=== PATIENT | male | born 1970 | race Caucasian/White ===

== ENCOUNTER 2018-01-26 16:32 | Emergency (ER) | END 2018-01-26 20:42 | disposition home or self-care (01) ==

== ENCOUNTER 2018-01-28 09:13 | Inpatient (IN) | END 2018-01-31 16:38 | disposition home or self-care (01) | DRG 639 ==

== ENCOUNTER 2018-07-04 03:44 | Emergency (ER) | END 2018-07-04 04:23 | disposition home or self-care (01) ==

== ENCOUNTER 2018-07-14 22:28 | Emergency (ER) | END 2018-07-14 23:18 | disposition home or self-care (01) ==

== ENCOUNTER 2018-09-12 21:11 | Inpatient (IN) | END 2018-09-15 14:35 | disposition home or self-care (01) | DRG 639 ==

== ENCOUNTER 2019-01-20 00:43 | Emergency (ER) | payer MEDICAID ==
[~2019-01-20] VITALS: Ht 154.9 cm; Wt 63.3 kg
[~2019-01-20 00:43] MED LIST: ALBU18HF INHALATION; FAMO20TA18 PO; HC30CR25 TOP; HYDR50TA15 PO; Insulin Glargine SC; LANO454C2 TP; LORA10CA PO; NOVO3I SC; SITA100T11 PO; TRAM50TA PO
[2019-01-20 00:48] VITALS: Ht 154.9 cm; Wt 63.3 kg
[2019-01-20] MEDS ORDERED: HYDROCODONE/APAP (5/325) TAB PO ONE (03:00)
[2019-01-20] MEDS ORDERED: SOD CHLORIDE 0.9% 1,000 ML IV ONE ×2 (04:00→05:30)
[2019-01-20] MEDS ORDERED: INSULIN LISPRO 100 UNIT/ML VIAL SC STA (04:09)
[2019-01-20] MEDS ORDERED: ACET500C5 PO (06:26)
[2019-01-20] MEDS ORDERED: CEPH-443 PO (06:26)
[2019-01-20] MEDS ORDERED: SULF1TAB31 PO (06:26)
--- NOTE | 2019-01-20 06:30 | ERD ---
ER Documentation Chief Complaint Chief Complaint upper thigh mass with pain that radiates to lower right quadrant x 2 days HPI Patient is a 48-year-old male with past medical history of DM type II, presents the ER for concerns of tender "mass" in his right upper thigh which started 2 days ago. Patient states that the area is tender to touch. Patient denies any fevers or chills. Patient denies any falls or trauma. Patient has no chest pain, shortness of breath, abdominal pain, nausea or vomiting. Patient denies IV drug use. Patient denies any dysuria, urgency, urgency or penile discharge. ROS All systems reviewed and are negative except as per history of present illness. Medications Home Meds Active Scripts Acetaminophen* (Tylophen*) 500 Mg Capsule, 1 CAP PO Q6H PRN for PAIN AND OR ELEVATED TEMP, #20 CAP Prov:DHRUV DIAZ PA-C 01/20/19 Sulfamethoxazole/Trimethoprim* (Bactrim Ds* Tablet) 1 Each Tablet, 1 TAB PO BID, #14 TAB Prov:DHRUV DIAZ PA-C 01/20/19 Cephalexin* (Keflex*) 500 Mg Capsule, 500 MG PO TID for 7 Days, CAP Prov:DHRUV DIAZ PA-C 01/20/19 Sitagliptin* (Januvia*) 100 Mg Tablet, 100 MG PO DAILY, #30 TAB 3 Refills Prov:RENATO BURNS 09/15/18 Insulin Aspart* (Novolog Insulin Pen*) 100 Unit/Ml Soln, 6 UNIT SC WITH MEALS for 30 Days, #1 BOX 3 Refills alternative: humalog at same dose, directions, and refills Prov:RENATO BURNS 09/15/18 [Insulin Glargine] 100 UNITS/ML SOLN No Conflict Check, 16 UNITS SC DAILY@08 for 30 Days, #1 BOX 3 Refills alternative:wolfgang singletary tresiba. Same dose and direction with same refills Prov:RENATO BURNS 09/15/18 Loratadine* (Claritin*) 10 Mg Capsule, 10 MG PO DAILY, #15 CAP Prov:MARQUIS DUNN PA-C 07/14/18 Albuterol Sulfate* (Ventolin HFA*) 18 Gm Hfa.aer.ad, 2 PUFF INHALATION Q4H, #1 INHALER Prov:MARQUIS DUNN PA-C 07/14/18 Wool Alcoh/Min Oil/Radha/[place] (Eucerin Creme) 454 Gm Cream.gm., 454 GM TP BID, #1 TUB Prov:MARQUIS DUNN PA-C 07/14/18 Hydrocortisone* Topical (Hydrocortisone* Topical) 2.5%-28.3 Gm Cream..g., 1 APPLIC TOP BID, #1 TUB Prov:MARQUIS DUNN PA-C 07/14/18 Hydroxyzine Hcl* (Hydroxyzine Hcl*) 50 Mg Tablet, 50 MG PO Q6H PRN for ITCHING, #30 TAB Prov:GOLDYTANMAYHARDYNERI Serafin 07/04/18 Reported Medications Famotidine* (Famotidine*) 20 Mg Tablet, 20 MG PO DAILY, #30 TAB 01/28/18 Tramadol Hcl* (Ultram*) 50 Mg Tablet, 50 MG PO Q4 PRN for PAIN, TAB 01/28/18 Allergies Allergies: Coded Allergies: No Known Allergy (Unverified , 01/28/18) PMhx/Soc Medical and Surgical Hx: pt denies Medical Hx, pt denies Surgical Hx History of Surgery: No Anesthesia Reaction: No Hx Neurological Disorder: No Hx Respiratory Disorders: No Hx Cardiac Disorders: No Hx Psychiatric Problems: No Hx Miscellaneous Medical Probl: No Hx Alcohol Use: No Hx Substance Use: No Hx Tobacco Use: No Smoking Status: Never smoker FmHx Family History: diabetes Physical Exam Vitals Vital Signs Date Temp Pulse Resp B/P (MAP) Pulse Ox O2 O2 Flow FiO2 Time Delivery Rate 01/20/19 98.6 76 18 109/64 97 Room Air 07:01 (79) 01/20/19 98.1 89 18 119/75 98 00:48 (90) Physical Exam GENERAL: Well-developed, well-nourished male. Appears in no acute distress. HEAD: Normocephalic, atraumatic. EYES: Pupils are equally reactive bilaterally. EOMs grossly intact. No conjunctival erythema. ENT: Moist mucous membranes. No uvula deviation. No kissing tonsils. NECK: Supple. No meningismus. Normal range of motion of the neck. LUNG: Clear to auscultation bilaterally. No rhonchi, wheezing, rales or coarse breath sounds. HEART: Regular rate and rhythm. No murmurs, rubs or gallops. ABDOMEN: Soft, nontender, and nondistended. Positive bowel sounds in all four quadrants. No rebound tenderness, no guarding. (-) McBurney's point tenderness. No CVA tenderness. BACK: No midline tenderness. EXTREMITIES: Equal pulses bilaterally. No peripheral clubbing, cyanosis or edema. No unilateral leg swelling. NEUROLOGIC: Alert and oriented. Moving all four extremities without any difficulty. Normal speech. Steady gait. SKIN: Tender palpable mass measuring 3 cm round noted on R upper thigh below R inguinal area. Skin is non erythematous. Mild warmth. No streaking. Affected area is not fluctuant. Result Diagram: 01/20/19 0257 01/20/197 Results 24 hrs Laboratory Tests Test 01/20/19 02:57 01/20/19 04:50 01/20/19 06:01 White Blood Count 10.0 10^3/ul Red Blood Count 4.31 10^6/ul Hemoglobin 12.9 g/dl Hematocrit 36.9 % Mean Corpuscular Volume 85.6 fl Mean Corpuscular Hemoglobin 29.9 pg Mean Corpuscular 35.0 g/dl Hemoglobin Concent Red Cell Distribution Width 12.0 % Platelet Count 210 10^3/UL Mean Platelet Volume 11.4 fl Immature Granulocytes % 0.300 % Neutrophils % 80.9 % Lymphocytes % 10.8 % Monocytes % 6.9 % Eosinophils % 0.7 % Basophils % 0.4 % Nucleated Red Blood Cells % 0.0 /100WBC Immature Granulocytes # 0.030 10^3/ul Neutrophils # 8.1 10^3/ul Lymphocytes # 1.1 10^3/ul Monocytes # 0.7 10^3/ul Eosinophils # 0.1 10^3/ul Basophils # 0.0 10^3/ul Nucleated Red Blood Cells # 0.0 10^3/ul Urine Color COLORLESS Urine Clarity CLEAR Urine pH 6.0 Urine Specific [place] 1.028 Urine Ketones 1+ mg/dL Urine Nitrite NEGATIVE mg/dL Urine Bilirubin NEGATIVE mg/dL Urine Urobilinogen NEGATIVE mg/dL Urine Leukocyte Esterase NEGATIVE Sergio/ul Urine Hemoglobin NEGATIVE mg/dL Urine Glucose 3+ mg/dL Urine Total Protein NEGATIVE mg/dl Sodium Level 136 mmol/L Potassium Level 4.3 mmol/L Chloride Level 100 mmol/L Carbon Dioxide Level 21 mmol/L Anion Gap 15 Blood Urea Nitrogen 16 mg/dl Creatinine 0.75 mg/dl Est Glomerular Filtrat > 60 mL/min Rate mL/min Glucose Level 593 mg/dl Calcium Level 9.4 mg/dl Total Bilirubin 0.3 mg/dl Direct Bilirubin 0.00 mg/dl Indirect Bilirubin 0.3 mg/dl Aspartate Amino Transf (AST/SGOT) 11 IU/L Alanine 29 IU/L Aminotransferase (ALT/SGPT) Alkaline Phosphatase 235 IU/L Total Protein 7.0 g/dl Albumin 3.9 g/dl Globulin 3.10 g/dl Albumin/Globulin Ratio 1.25 Bedside Glucose 498 mg/dL 320 mg/dL Current Medications Medications Dose Sig/Nena Start Time Status Last (Trade) Ordered Route PRN Stop Time Admin Dose Reason Admin 1 tab ONCE ONCE 01/20/19 DC 01/20/19 Acetaminophen PO 03:00 03:16 / 01/20/19 03:01 Hydrocodone Bitart ([place] (5/325)) Sodium 1,000 ml @ Q1H ONCE 01/20/19 DC 01/20/19 Chloride 1,000 mls/hr IV 04:00 04:07 01/20/19 04:59 Insulin 10 unit ONCE STAT 01/20/19 DC 01/20/19 Human SC 04:09 04:56 Lispro 01/20/19 04:11 (Humalog) Sodium 1,000 ml @ Q1H ONCE 01/20/19 DC 01/20/19 Chloride 1,000 mls/hr IV 05:30 05:21 01/20/19 06:29 Procedures/MDM ED COURSE: The patient was stable throughout ED course. I kept the patient and/or family informed of laboratory and diagnostic imaging results throughout the ED course. DIAGNOSTIC IMAGING: Read by radiologist. Patient: RAMIN HERNANDEZ : 1970 Age: 48 Sex: M MR #: [id number] DOS: 01/20/19 0232 Ordering MD: DHRUV DIAZ PA-C Location: E Room/Bed: PROCEDURE: Soft tissue ultrasound of the right leg including color Doppler study. CLINICAL INDICATION: Right leg mass TECHNIQUE: Sharma scale and color Doppler imaging of the palpable abnormality below the crease of the groin was performed with a high frequency linear transducer COMPARISON: None FINDINGS: There is a 2.4 x 2.5 x 2.4 cm complex mixed echogenicity rounded lesion corresponding to the palpable abnormality. No focal drainable fluid collection is seen. This appears to be deep to the subcutaneous soft tissues. There does appear to be a small of internal vascularity. IMPRESSION: Complex cystic or necrotic mass in the right leg soft tissues beneath the subcutaneous soft tissues. This could represent a necrotic lymph node or necrotic or complex neoplasm. Ultrasound could be used for biopsy. MRI with and without contrast could be considered if indicated. Physician Deja Date Time Electronically viewed and signed by Britt Lei Physician on 01/20/2019 04:23 LE/ CC: DHRUV DIAZ PA-C [id number] PROCEDURES: None. MEDICATIONS GIVEN: Iv fluids, [place], Insulin Patient tolerated medication well with no adverse reactions. MEDICAL DECISION MAKING: Patient is a 48-year-old male with past medical history of DM type II, presents the ER for concerns of tender "mass" in his right upper thigh which started 2 days ago. Patient denied fevers or chills. Patient denied IV drug use. Vital signs were reviewed. Patient was afebrile. Patient was not hypoxic. Patient was hemodynamically stable. IV line was established. Blood work was obtained. CBC showed no evidence of systemic infection or severe anemia. CMP showed no evidence of severe electrolyte abnormalities except for glucose of 593, severe acidosis, alkalosis, renal failure, or liver disease. Anion gap of 15 noted. Lipase showed no evidence of acute pancreatitis. UA showed no evidence of acute infection or hematuria however 3+ glucose and +1 ketones noted. Patient's bicarb is within normal limits. Doubt DKA at this time. Patient had hyperglycemia due to uncontrolled blood sugars and was given 10 units of insulin subcu. Blood sugar was noted to be downtrending throughout the ED course. Soft tissue ultrasound of the right leg showed Complex cystic or necrotic mass in the right leg soft tissues beneath the subcutaneous soft tissues. This could represent a necrotic lymph node or necrotic or complex neoplasm. Ultrasound could be used for biopsy. MRI with and without contrast could be considered if indicated. Findings were discussed with supervising physician Dr. Mora, who stated that findings are likely related to abscess. Clinically speaking, patient appears well. Patient had no fevers. Patient WBC count was within normal limits. Patient is stable for outpatient management. Patient was given prescription for Keflex and Bactrim and advised to return in 2 days for recheck. No suspicion for necrotizing infection or sepsis. Patient was advised to monitor and control his blood sugars. PRESCRIPTION: Keflex, Bactrim, Tylenol DISCHARGE: At this time, patient is stable for discharge and outpatient management. I have instructed the patient to follow-up with his/her primary care physician in 1-2 days. I have discussed with the patient the possibility of needing to see a specialist for further workup and imaging studies if symptoms persist. I have instructed the patient to promptly return to the ER for any new or worsening symptoms including increased pain, fever, nausea, vomiting, weakness or LOC. The patient and/or family expressed understanding of and agreement with this plan. All questions were answered. Home care instructions were provided. Patients random blood sugar level was elevated (>140), but appears stable without evidence of DKA or end organ failure. I had discussion with the patient about the risk of diabetes. I have advised the patient to follow up with his/her primary care physician for outpatient monitoring and treatment for elevated blood sugar levels in 2-3 days. I have instructed the patient to return to the ER for any new or worsening symptoms including chest pain, shortness of breath, headache, confusion, abdominal pain, nausea, vomiting, weakness or LOC. Disclaimer: Inadvertent spelling and grammatical errors are likely due to EHR/dictation software use and do not reflect on the overall quality of patient care. Also, please note that the electronic time recorded on this note does not necessarily reflect the actual time of the patient encounter. Departure Diagnosis: Primary Impression: Abscess Additional Impression: Hyperglycemia due to type 2 diabetes mellitus Diabetes mellitus ferry terminal agent insulin use: unspecified ferry terminal agent insulin use status Qualified Codes: E11.65 - Type 2 diabetes mellitus with hyperglycemia Condition: Fair Patient Instructions: Abscess, Antiobiotic Treatment Only Referrals: COMMUNITY CLINICS YOU HAVE RECEIVED A MEDICAL SCREENING EXAM AND THE RESULTS INDICATE THAT YOU DO NOT HAVE A CONDITION THAT REQUIRES URGENT TREATMENT IN THE EMERGENCY DEPARTMENT. FURTHER EVALUATION AND TREATMENT OF YOUR CONDITION CAN WAIT UNTIL YOU ARE SEEN IN YOUR DOCTORS OFFICE WITHIN THE NEXT 1-2 DAYS. IT IS YOUR RESPONSIBILITY TO MAKE AN APPOINTMENT FOR FOLOW-UP CARE. IF YOU HAVE A PRIMARY DOCTOR --you should call your primary doctor and schedule an appointment IF YOU DO NOT HAVE A PRIMARY DOCTOR YOU CAN CALL OUR PHYSICIAN REFERRAL HOTLINE AT IF YOU CAN NOT AFFORD TO SEE A PHYSICIAN YOU CAN CHOSE FROM THE FOLLOWING [facility] [address] [facility] [address] [facility] [address] [facility] [address] [facility] [address] [facility]. [facility] [address] [facility]. [facility] YOU HAVE RECEIVED A MEDICAL SCREENING EXAM AND THE RESULTS INDICATE THAT YOU DO NOT HAVE A CONDITION THAT REQUIRES URGENT TREATMENT IN THE EMERGENCY DEPARTMENT. FURTHER EVALUATION AND TREATMENT OF YOUR CONDITION CAN WAIT UNTIL YOU ARE SEEN IN YOUR DOCTORS OFFICE WITHIN THE NEXT 1-2 DAYS. IT IS YOUR RESPONSIBILITY TO MAKE AN APPOINTMENT FOR FOLOW-UP CARE. IF YOU HAVE A PRIMARY DOCTOR --you should call your primary doctor and schedule and appointment IF YOU DO NOT HAVE A PRIMARY DOCTOR YOU CAN CALL OUR PHYSICIAN REFERRAL HOTLINE AT . IF YOU CAN NOT AFFORD TO SEE A PHYSICIAN YOU CAN CHOSE FROM THE FOLLOWING [facility] INSTITUTIONS: [facility] [address] [place] [address] [facility] [address] [place] [address] [facility] + [facility] [address] [place] [address] [facility]/SPECIALTIES Additional Instructions: Regresar en dos aguilar para recheck. Llame al doctor MAANA y fam mariano TAHIRA PARA DENTRO DE 1-2 AGUILAR.Dgale a la secre taria que nosotros le instruimos hacer esta tahira.Avise o llame si nova condicin se empeora antes de la tahira. Regresa aqui si peor o no mejor. DHRUV DIAZ PA-C Jan 20, 2019 06:30
[2019-01-20 07:01] VITALS: BP 109/64; PULSE 76; RESP 18
== END 2019-01-20 07:02 | disposition home or self-care (01) ==
LOC: FTE 00:43
DX: L02.415 Cutaneous abscess of right lower limb (principal); E11.65 Type 2 diabetes mellitus with hyperglycemia; Z79.4 Long term (current) use of insulin
CPT/HCPCS: 36415; 76536; 80053; 81003; 82962; 85025; 96360; 96361; 96372; J1815; J7030; Z7502; Z7610

== ENCOUNTER 2019-01-23 02:30 | Emergency (ER) | payer MEDICAID ==
[~2019-01-23] VITALS: Ht 160 cm; Wt 64.4 kg
[~2019-01-23 02:30] MED LIST changes: +ACET500C5 PO; +CEPH-443 PO; +SULF1TAB31 PO
[2019-01-23 02:38] VITALS: BP 111/67; PULSE 72; RESP 16; Ht 160 cm; Wt 64.4 kg
--- NOTE | 2019-01-23 03:46 | ERD ---
ER Documentation Chief Complaint Chief Complaint pt reports r groin pain x 3 days HPI 48-year-old male, presents to the emergency department, complaining of 3 days with right inguinal pain the patient was seen 3 days ago and is started on cephalexin and Bactrim without improvement of the symptoms. He denies fever, no chills, no abdominal pain. ROS All systems reviewed and are negative except as per history of present illness. Medications Home Meds Active Scripts Acetaminophen* (Tylenol*) 325 Mg Tablet, 2 TAB PO Q6 PRN for PAIN AND OR ELEVATED TEMP, #20 TAB Prov:LIAM ROWE MD 01/23/19 Acetaminophen* (Tylophen*) 500 Mg Capsule, 1 CAP PO Q6H PRN for PAIN AND OR ELEVATED TEMP, #20 CAP Prov:DHRUV DIAZ PA-C 01/20/19 Sulfamethoxazole/Trimethoprim* (Bactrim Ds* Tablet) 1 Each Tablet, 1 TAB PO BID, #14 TAB Prov:DHRUV DIAZ PA-C 01/20/19 Cephalexin* (Keflex*) 500 Mg Capsule, 500 MG PO TID for 7 Days, CAP Prov:DHRUV DIAZ PA-C 01/20/19 Sitagliptin* (Januvia*) 100 Mg Tablet, 100 MG PO DAILY, #30 TAB 3 Refills Prov:RENATO BURNS 09/15/18 Insulin Aspart* (Novolog Insulin Pen*) 100 Unit/Ml Soln, 6 UNIT SC WITH MEALS for 30 Days, #1 BOX 3 Refills alternative: humalog at same dose, directions, and refills Prov:RENATO BURNS 09/15/18 [Insulin Glargine] 100 UNITS/ML SOLN No Conflict Check, 16 UNITS SC DAILY@08 for 30 Days, #1 BOX 3 Refills alternative:basaglar, toucarolyn, tresiba. Same dose and direction with same refills Prov:RENATO BURNS 09/15/18 Loratadine* (Claritin*) 10 Mg Capsule, 10 MG PO DAILY, #15 CAP Prov:MARQUIS DUNN PA-C 07/14/18 Albuterol Sulfate* (Ventolin HFA*) 18 Gm Hfa.aer.ad, 2 PUFF INHALATION Q4H, #1 INHALER Prov:MARQUIS DUNN PA-C 07/14/18 Wool Alcoh/Min Oil/Radha/[place] (Eucerin Creme) 454 Gm Cream.gm., 454 GM TP BID, #1 TUB Prov:MARQUIS DUNN PA-C 07/14/18 Hydrocortisone* Topical (Hydrocortisone* Topical) 2.5%-28.3 Gm Cream..g., 1 APPLIC TOP BID, #1 TUB Prov:MARQUIS DUNN PA-C 07/14/18 Hydroxyzine Hcl* (Hydroxyzine Hcl*) 50 Mg Tablet, 50 MG PO Q6H PRN for ITCHING, #30 TAB Prov:SHAILA DALE 07/04/18 Reported Medications Famotidine* (Famotidine*) 20 Mg Tablet, 20 MG PO DAILY, #30 TAB 01/28/18 Tramadol Hcl* (Ultram*) 50 Mg Tablet, 50 MG PO Q4 PRN for PAIN, TAB 01/28/18 Allergies Allergies: Coded Allergies: No Known Allergy (Unverified , 01/28/18) PMhx/Soc The patient reports history of type 2 diabetes mellitus History of Surgery: No Anesthesia Reaction: No Hx Neurological Disorder: No Hx Respiratory Disorders: No Hx Cardiac Disorders: No Hx Psychiatric Problems: No Hx Miscellaneous Medical Probl: No Hx Alcohol Use: No Hx Substance Use: No Hx Tobacco Use: No Smoking Status: Never smoker FmHx Family History: diabetes; No coronary disease Physical Exam Vitals Vital Signs Date Temp Pulse Resp B/P (MAP) Pulse Ox O2 O2 Flow FiO2 Time Delivery Rate 01/23/19 98.7 72 16 111/67 100 02:38 (82) Physical Exam Const: No acute distress Head: Atraumatic Eyes: Normal Conjunctiva ENT: Normal External Ears, Nose and Mouth. Neck: Full range of motion. No meningismus. Resp: Clear to auscultation bilaterally Cardio: Regular rate and rhythm, no murmurs Abd: Soft, non tender, non distended. Normal bowel sounds Skin: 4 x 4 cm area of induration, erythema and fluctuance on the right upper thigh. No petechiae or rashes Back: No midline or flank tenderness Ext: No cyanosis, or edema Neur: Awake and alert Psych: Normal Mood and Affect Results 24 hrs Current Medications Medications Dose Sig/Nena Start Time Status Last (Trade) Ordered Route PRN Stop Time Admin Dose Reason Admin Lidocaine 5 ml ONCE ONCE 01/23/19 DC (Xylocaine INFIL 04:00 1% (Mpf)) 01/23/19 04:01 Procedures/MDM Vital signs stable. Differential diagnosis considered include but not limited to: Cellulitis, abscess, lipoma, neoplasm. Low suspicion for acute systemic infection. Physical examination and clinical presentation consistent most likely with skin abscess. During the ED course the patient remained stable, no new complaints. The patient received treatment with incision and drainage of the area presenting overall improvement of the symptoms. Incision and drainage: Informed consent obtained, risk and benefits discussed with patient. Indication: Skin abscess Location: Right upper thigh Area cleaned and sterilized with chlorhexidine solution, 2 mL of lidocaine without epi was infiltrated in the area of the incision. 5 mm incision was made with 11 blade scalpel abscess was drained with breaking up loculation with a hemostat. 1/4 packing was placed through the incision in the abscess cavity. The patient tolerated well the procedure without complications. Results and clinical impression discussed with the patient who agrees with management. The patient is stable to be treated outpatient and will be discharged home, some side effects of prescribed medications (headache, rash, nausea, vomiting, diarrhea, drowsiness, habituation, bleeding, hypertension, interactions with other medications) were reviewed. The patient was instructed to follow up with the primary care provider in the next 48h. If symptoms persist, worsen or new symptoms develop, then patient should return to the ED immediately. Instructions explained and given directly by me to the patient in Turkmen with acknowledgment and demonstrated understanding. Disclaimer: Inadvertent spelling and grammatical errors are likely due to EHR/dictation software use and do not reflect on the overall quality of patient care. Also, please note that the electronic time recorded on this note does not necessarily reflect the actual time of the patient encounter. Departure Diagnosis: Primary Impression: Skin abscess Condition: Stable Additional Instructions: Muchas arnold por [facility] para nova servicio. Esperamos que en nova visita a la dipti de emergencia nova problema medico haya sido solucionado y que se sienta mucho mejor. Para estar seguros que nova mejoria sigue en proceso, le pedimos el favor de hacer mariano octavia de seguimiento medico con nova doctor primario en los proximos 2-4 landin. Lleve con usted estos documentos y las medicinas recetadas. Si nahum sintomas empeoran, NO SE ESPERE, por favor regrese a dipti de emergencia INMEDIATAMENTE. En tayla que usted no tenga un mdico de atencin primaria: Llame al mdico o clnica comunitaria de referencia que aparece abajo michelle las horas de consultorio para hacer mariano octavia para que le vean. CLINICAS: [facility] [phone] [address] [facility] [phone] [address] [facility] [phone] [facility]. [facility] [phone] [address] [place] [id number] [phone] [facility]. [phone] LIAM MURPHY MD Jan 23, 2019 03:46
[2019-01-23] MEDS ORDERED: LIDOCAINE 1% (MPF) 5 ML VIAL INFIL ONE (04:00)
[2019-01-23] MEDS ORDERED: ACET325T33 PO (04:44)
== END 2019-01-23 04:51 | disposition home or self-care (01) ==
LOC: FTE 02:30
DX: L02.415 Cutaneous abscess of right lower limb (principal); E11.9 Type 2 diabetes mellitus without complications; Z79.4 Long term (current) use of insulin
CPT/HCPCS: 10060; Z7502

== ENCOUNTER 2019-01-24 13:35 | Emergency (ER) | payer MEDICAID ==
[~2019-01-24] VITALS: Wt 63.2 kg
[~2019-01-24 13:35] MED LIST changes: +ACET325T33 PO
[2019-01-24] MEDS ORDERED: LIDOCAINE 1% (MDV) 20 ML INJ SC ONE (15:30)
[2019-01-24] MEDS ORDERED: CEFTRIAXONE 1 GM INJ IM ONE (16:30)
[2019-01-24] MEDS ORDERED: LIDOCAINE 1% (MPF) 5 ML VIAL INJ ONE (16:30)
--- NOTE | 2019-01-24 16:30 | EN ---
Date/Time of Note Date/Time of Note DATE: 01/24/19 TIME: 16:27 ER Progress Note History of Present Illness: 48-year-old male coming in today with complaint of wound recheck. Patient reports having incision and drainage done approximately 2 days ago at [facility] emergency department. Patient reports mild discomfort lash pain. Patient denies fever, chills, increased purulent drainage. At home pharmacological/nonpharmacological treatment for symptoms: Keflex and Bactrim; patient reports medication compliance. Denies social concerns; Denies recent foreign travel --- Patient hemodynamically stable at time of assessment. Upon removing bandage from right inguinal abscess, packing was removed. Purulent drainage began to expel. Was able to expel some purulent drainage using digits. patient will need additional incision and drainage to open up the puncture site. Care transferred to [facility] for further evaluation, incision and drainage, and reassessment of patient. At time of care transferred, awaiting supplies for incision and drainage. ARTHUR CORREIA NP Jan 24, 2019 16:30
--- NOTE | 2019-01-24 17:32 | ERD ---
ER Documentation Chief Complaint Chief Complaint r. inguinal sx on fri, states he was sent to ER for post op check HPI 48-year-old male presents status post recent I&D to right inguinal area for recheck. Patient still complaint purulent drainage from incision site. Complain of mild pain to the area. He otherwise without complaint. Has been taking antibiotics as recommended. He is afebrile with normal triage vital signs. ROS All systems reviewed and are negative except as per history of present illness. Medications Home Meds Active Scripts Acetaminophen* (Tylenol*) 325 Mg Tablet, 2 TAB PO Q6 PRN for PAIN AND OR ELEVATED TEMP, #20 TAB Prov:LIAM ROWE MD 01/23/19 Acetaminophen* (Tylophen*) 500 Mg Capsule, 1 CAP PO Q6H PRN for PAIN AND OR ELEVATED TEMP, #20 CAP Prov:DHRUV DIAZ PA-C 01/20/19 Sulfamethoxazole/Trimethoprim* (Bactrim Ds* Tablet) 1 Each Tablet, 1 TAB PO BID, #14 TAB Prov:DHRUV DIAZ PA-C 01/20/19 Cephalexin* (Keflex*) 500 Mg Capsule, 500 MG PO TID for 7 Days, CAP Prov:DHRUV DIAZ PA-C 01/20/19 Sitagliptin* (Januvia*) 100 Mg Tablet, 100 MG PO DAILY, #30 TAB 3 Refills Prov:RENATO BURNS 09/15/18 Insulin Aspart* (Novolog Insulin Pen*) 100 Unit/Ml Soln, 6 UNIT SC WITH MEALS for 30 Days, #1 BOX 3 Refills alternative: humalog at same dose, directions, and refills Prov:RENATO BURNS 09/15/18 [Insulin Glargine] 100 UNITS/ML SOLN No Conflict Check, 16 UNITS SC DAILY@08 for 30 Days, #1 BOX 3 Refills alternative:wolfgang singletary tresiba. Same dose and direction with same refills Prov:RENATO BURNS 09/15/18 Loratadine* (Claritin*) 10 Mg Capsule, 10 MG PO DAILY, #15 CAP Prov:MARQUIS DUNN PA-C 07/14/18 Albuterol Sulfate* (Ventolin HFA*) 18 Gm Hfa.aer.ad, 2 PUFF INHALATION Q4H, #1 INHALER Prov:AMRQUIS DUNN PA-C 07/14/18 Wool Alcoh/Min Oil/Radha/[place] (Eucerin Creme) 454 Gm Cream.gm., 454 GM TP BID, #1 TUB Prov:MARQUIS DUNN PA-C 07/14/18 Hydrocortisone* Topical (Hydrocortisone* Topical) 2.5%-28.3 Gm Cream..g., 1 APPLIC TOP BID, #1 TUB Prov:MARQUIS DUNN PA-C 07/14/18 Hydroxyzine Hcl* (Hydroxyzine Hcl*) 50 Mg Tablet, 50 MG PO Q6H PRN for ITCHING, #30 TAB Prov:SHAILA DALE 07/04/18 Reported Medications Famotidine* (Famotidine*) 20 Mg Tablet, 20 MG PO DAILY, #30 TAB 01/28/18 Tramadol Hcl* (Ultram*) 50 Mg Tablet, 50 MG PO Q4 PRN for PAIN, TAB 01/28/18 Allergies Allergies: Coded Allergies: No Known Allergy (Unverified , 01/24/19) PMhx/Soc Medical and Surgical Hx: pt denies Medical Hx, pt denies Surgical Hx History of Surgery: No Anesthesia Reaction: No Hx Neurological Disorder: No Hx Respiratory Disorders: No Hx Cardiac Disorders: No Hx Psychiatric Problems: No Hx Miscellaneous Medical Probl: No Hx Alcohol Use: No Hx Substance Use: No Hx Tobacco Use: No Smoking Status: Never smoker Physical Exam Vitals Vital Signs Date Temp Pulse Resp B/P (MAP) Pulse Ox O2 O2 Flow FiO2 Time Delivery Rate 01/24/19 76 18 107/68 99 Room Air 17:52 (81) 01/24/19 98.8 85 20 103/59 97 13:46 (74) Physical Exam Const: No acute distress Head: Atraumatic Eyes: Normal Conjunctiva ENT: Normal External Ears, Nose and Mouth. Neck: Full range of motion. No meningismus. Resp: Clear to auscultation bilaterally Cardio: Regular rate and rhythm, no murmurs Abd: Soft, non tender, non distended. Normal bowel sounds Skin: Area of fluctuance and induration to right inguinal area. Small incision with fibular drainage noted. Some surrounding erythema. Back: No midline or flank tenderness Ext: No cyanosis, or edema Neur: Awake and alert Psych: Normal Mood and Affect Results 24 hrs Current Medications Medications Dose Sig/Nena Start Time Status Last (Trade) Ordered Route PRN Stop Time Admin Dose Reason Admin Lidocaine 20 ml ONCE ONCE 01/24/19 DC (Xylocaine SC 15:30 1% (Mdv) 20 01/24/19 15:31 ml) Ceftriaxone 1 gm ONCE ONCE 01/24/19 DC 01/24/19 Sodium IM 16:30 16:31 (Rocephin) 01/24/19 16:31 Lidocaine 2.1 ml ONCE ONCE 01/24/19 DC 01/24/19 (Xylocaine INJ 16:30 16:31 1% (Mpf)) 01/24/19 16:31 Procedures/MDM 48-year-old male who presents for recheck status post sinus drainage of right inguinal abscess. Patient still with purulent drainage from site. Incision extended, wound irrigated, additional loculations manipulated with copious amount of purulent drainage from site. Wound packed. Abscess Incision and Drainage with irrigation by me: Location: L inguinal area, incision extended Anesthesia: Local 1% Lidocaine Technique: Irrigated. Disrupted loculations w/ instrumentation Packing: applied Complications: Neurovascularly intact post procedure 48 hour wound check. Scar minimization instructions given. DISPOSITION PLAN: We discussed follow up with the patient's primary care doctor within 24 to 48 hours. Patient counseled regarding my diagnostic impression and care plan. Prior to discharge all questions answered. Pt agrees with treatment plan and understands strict return precautions. Precautionary instructions provided including instructions to return to the ER if not improving or for any worsening or changing symptoms or concerns. Disclaimer: Inadvertent spelling and grammatical errors are likely due to EHR/dictation software use and do not reflect on the overall quality of patient care. Also, please note that the electronic time recorded on this note does not necessarily reflect the actual time of the patient encounter. Departure Diagnosis: Primary Impression: Abscess Additional Impression: Encounter for recheck of abscess following incision and drainage Condition: Stable Patient Instructions: Abscess, Incision And Drainage Referrals: COMMUNITY CLINICS YOU HAVE RECEIVED A MEDICAL SCREENING EXAM AND THE RESULTS INDICATE THAT YOU DO NOT HAVE A CONDITION THAT REQUIRES URGENT TREATMENT IN THE EMERGENCY DEPARTMENT. FURTHER EVALUATION AND TREATMENT OF YOUR CONDITION CAN WAIT UNTIL YOU ARE SEEN IN YOUR DOCTORS OFFICE WITHIN THE NEXT 1-2 DAYS. IT IS YOUR RESPONSIBILITY TO MAKE AN APPOINTMENT FOR FOLOW-UP CARE. IF YOU HAVE A PRIMARY DOCTOR --you should call your primary doctor and schedule an appointment IF YOU DO NOT HAVE A PRIMARY DOCTOR YOU CAN CALL OUR PHYSICIAN REFERRAL HOTLINE AT IF YOU CAN NOT AFFORD TO SEE A PHYSICIAN YOU CAN CHOSE FROM THE FOLLOWING [facility] CLINICS [facility] [address] [facility] [address] [facility] [facility] [address] [facility] [address] [facility]. [facility] [address] [facility] [facility] [address] Additional Instructions: Call your primary care doctor TOMORROW for an appointment during the next 2-3 days.See the doctor sooner or return here if your condition worsens before your appointment time. Return in 48 hours for wound check. JOHN GRANT PA-C Jan 24, 2019 17:32
[2019-01-24 17:52] VITALS: BP 107/68; PULSE 76; RESP 18
== END 2019-01-24 17:53 | disposition home or self-care (01) ==
LOC: FTE 13:35
DX: L02.214 Cutaneous abscess of groin (principal); Z48.01 Encounter for change or removal of surgical wound dressing
CPT/HCPCS: 10060; J0696; Z7610; 96372

== ENCOUNTER 2019-01-26 07:21 | Emergency (ER) | payer MEDICAID ==
[~2019-01-26] VITALS: Ht 154.9 cm; Wt 64.6 kg
[2019-01-26 07:24] VITALS: BP 111/78; PULSE 78; RESP 18; Ht 154.9 cm; Wt 64.6 kg
--- NOTE | 2019-01-26 15:50 | ERD ---
ER Documentation Chief Complaint Chief Complaint pt here for wound check 03/08 pain HPI 48-year-old male presenting for wound check. Patient had incision and drainage performed a few days ago and is taking antibiotics without complication. Patient has no fevers. Denies other medical problems. NKDA. Surgical history denies. Social history denies ROS All systems reviewed and are negative except as per history of present illness. Medications Home Meds Active Scripts Acetaminophen* (Tylenol*) 325 Mg Tablet, 2 TAB PO Q6 PRN for PAIN AND OR ELEVATED TEMP, #20 TAB Prov:LIAM ROWE MD 01/23/19 Acetaminophen* (Tylophen*) 500 Mg Capsule, 1 CAP PO Q6H PRN for PAIN AND OR ELEVATED TEMP, #20 CAP Prov:DHRUV DIAZ PA-C 01/20/19 Sulfamethoxazole/Trimethoprim* (Bactrim Ds* Tablet) 1 Each Tablet, 1 TAB PO BID, #14 TAB Prov:DHRUV DIAZ PA-C 01/20/19 Cephalexin* (Keflex*) 500 Mg Capsule, 500 MG PO TID for 7 Days, CAP Prov:DHRUV DIAZ PA-C 01/20/19 Sitagliptin* (Januvia*) 100 Mg Tablet, 100 MG PO DAILY, #30 TAB 3 Refills Prov:RENATO BURNS 09/15/18 Insulin Aspart* (Novolog Insulin Pen*) 100 Unit/Ml Soln, 6 UNIT SC WITH MEALS for 30 Days, #1 BOX 3 Refills alternative: humalog at same dose, directions, and refills Prov:RENATO BURNS 09/15/18 [Insulin Glargine] 100 UNITS/ML SOLN No Conflict Check, 16 UNITS SC DAILY@08 for 30 Days, #1 BOX 3 Refills alternative:basaglar, toujeo, tresiba. Same dose and direction with same refills Prov:RENATO BURNS 09/15/18 Loratadine* (Claritin*) 10 Mg Capsule, 10 MG PO DAILY, #15 CAP Prov:MARQUIS DUNN PA-C 07/14/18 Albuterol Sulfate* (Ventolin HFA*) 18 Gm Hfa.aer.ad, 2 PUFF INHALATION Q4H, #1 INHALER Prov:MARQUIS DUNN PA-C 07/14/18 Wool Alcoh/Min Oil/Radha/[place] (Eucerin Creme) 454 Gm Cream.gm., 454 GM TP BID, #1 TUB Prov:MARQUIS DUNN PA-C 07/14/18 Hydrocortisone* Topical (Hydrocortisone* Topical) 2.5%-28.3 Gm Cream..g., 1 APPLIC TOP BID, #1 TUB Prov:MARQUIS DUNN PA-C 07/14/18 Hydroxyzine Hcl* (Hydroxyzine Hcl*) 50 Mg Tablet, 50 MG PO Q6H PRN for ITCHING, #30 TAB Prov:SHAILA DALE 07/04/18 Reported Medications Famotidine* (Famotidine*) 20 Mg Tablet, 20 MG PO DAILY, #30 TAB 01/28/18 Tramadol Hcl* (Ultram*) 50 Mg Tablet, 50 MG PO Q4 PRN for PAIN, TAB 01/28/18 Allergies Allergies: Coded Allergies: No Known Allergy (Unverified , 01/24/19) PMhx/Soc History of Surgery: No Anesthesia Reaction: No Hx Neurological Disorder: No Hx Respiratory Disorders: No Hx Cardiac Disorders: No Hx Psychiatric Problems: No Hx Miscellaneous Medical Probl: No Hx Alcohol Use: No Hx Substance Use: No Hx Tobacco Use: No Smoking Status: Never smoker FmHx Family History: No diabetes, No coronary disease, No other Physical Exam Vitals Vital Signs Date Temp Pulse Resp B/P (MAP) Pulse Ox O2 O2 Flow FiO2 Time Delivery Rate 01/26/19 98.6 78 18 111/78 100 07:24 (89) Physical Exam GENERAL: The patient is well-appearing, well-nourished, in no acute distress HEENT: Atraumatic. Conjunctivae are pink. Pupils equal, round, and reactive to light. There is no scleral icterus. Tympanic membranes clear bilaterally. Oropharynx clear. CHEST: Clear to auscultation bilaterally. There are no rales, wheezes or rhonchi. HEART: Regular rate and rhythm. No murmurs, clicks, rubs or gallops. SKIN: I&D site noted to the right upper thigh with packing in place. No induration or fluctuance. No lymphatic streaking. Compartments soft. Procedures/MDM ER Course: Previous iodoform packing removed without complication. Area cleaned and new packing placed. Pressure bandage applied. MDM: 48-year-old male presenting for wound care. Patient had I&D that was changed. I will suspicion for worsening abscess. I have low suspicion for deep tracking infection. Patient is discharged with strict ER precautions and told to follow-up with primary care within 1 to 2 days for close evaluation. Patient is told symptoms change or worsen to return immediately to the ER. All questions answered at discharge Departure Diagnosis: Primary Impression: Encounter for wound re-check Condition: Stable Patient Instructions: Wound Packing Referrals: [facility]) Usted se juarez hecho un examen mdico de control que le indica que no est en mariano condicin que requiera tratamiento urgente en el Departamento de Emergencia. Un estudio ms profundo y el tratamiento de nova condicin pueden esperar sin ningn riesgo hasta que usted sea atendida/o en el consultorio de nvoa mdico o mariano clnica. Es responsabilidad suya arreglar mariano octavia para el seguimiento del tayla. MANEJO DE CONDICIONES NO URGENTES EN EL FUTURO 1) Si usted tiene un mdico de atencin primaria: Usted debera llamar a nova mdico de atencin primaria antes de venir al departamento de emergencia. Despus de las horas de consultorio, nova doctor o nova asociado/a est disponible por telfono. El mdico o enfermero de nathaly en el servicio telefnico puede asesorarle por nguyen medio para atender el problema, o tayla contrario se puede programar mariano octavia. 2) Si usted no tiene un mdico de atencin primaria: Llame al mdico o clnica de referencia que aparece abajo michelle las horas de consultorio para hacer mariano octavia para que le vean. CLINICAS: [facility] [phone] [address] [facility] [phone] [facility] [phone] [facility] [phone] [address] [facility] 331 [phone] [address] [facility] [phone] [address] Additional Instructions: FOLLOW UP WITH YOUR PRIMARY CARE PHYSICIAN TOMORROW.Return to this facility if you are not improving as expected. SHEYLA WHITE PA-C Jan 26, 2019 15:50
== END 2019-01-26 08:13 | disposition home or self-care (01) ==
LOC: FTE 07:21
DX: Z48.01 Encounter for change or removal of surgical wound dressing (principal); E11.9 Type 2 diabetes mellitus without complications; Z79.4 Long term (current) use of insulin
CPT/HCPCS: 99281

== ENCOUNTER 2019-01-30 15:37 | Emergency (ER) | payer MEDICAID ==
[~2019-01-30] VITALS: Ht 162.6 cm; Wt 63.7 kg
[2019-01-30 15:40] VITALS: BP 115/81; PULSE 80; RESP 18; Ht 162.6 cm; Wt 63.7 kg
--- NOTE | 2019-01-30 16:36 | ERD ---
ER Documentation Chief Complaint Chief Complaint right groin abscess was packed 3 days ago here for packing removal HPI Patient is a 48-year-old male with diabetes who presents with a packing in his right thigh that he needs removed. He has no fevers. He has no complaints. He had incision and drainage performed a few days ago and had packing placed. He can get the packing removed. Upon review of old medical records this is the patient's 10th visit to the ER since 2018. He does not currently have a primary doctor. ROS All systems reviewed and are negative except as per history of present illness. Medications Home Meds Active Scripts Acetaminophen* (Tylenol*) 325 Mg Tablet, 2 TAB PO Q6 PRN for PAIN AND OR ELEVATED TEMP, #20 TAB Prov:LIAM ROWE MD 01/23/19 Acetaminophen* (Tylophen*) 500 Mg Capsule, 1 CAP PO Q6H PRN for PAIN AND OR ELEVATED TEMP, #20 CAP Prov:DHRUV DIAZ PA-C 01/20/19 Sulfamethoxazole/Trimethoprim* (Bactrim Ds* Tablet) 1 Each Tablet, 1 TAB PO BID, #14 TAB Prov:DHRUV DIAZ PA-C 01/20/19 Cephalexin* (Keflex*) 500 Mg Capsule, 500 MG PO TID for 7 Days, CAP Prov:DHRUV DIAZ PA-C 01/20/19 Sitagliptin* (Januvia*) 100 Mg Tablet, 100 MG PO DAILY, #30 TAB 3 Refills Prov:RENATO BURNS 09/15/18 Insulin Aspart* (Novolog Insulin Pen*) 100 Unit/Ml Soln, 6 UNIT SC WITH MEALS for 30 Days, #1 BOX 3 Refills alternative: humalog at same dose, directions, and refills Prov:RENATO BURNS 09/15/18 [Insulin Glargine] 100 UNITS/ML SOLN No Conflict Check, 16 UNITS SC DAILY@08 for 30 Days, #1 BOX 3 Refills alternative:wolfgang singletary tresiba. Same dose and direction with same refills Prov:RENATO BURNS 09/15/18 Loratadine* (Claritin*) 10 Mg Capsule, 10 MG PO DAILY, #15 CAP Prov:MARQUIS DUNN PA-C 07/14/18 Albuterol Sulfate* (Ventolin HFA*) 18 Gm Hfa.aer.ad, 2 PUFF INHALATION Q4H, #1 INHALER Prov:MARQUIS DUNN PA-C 07/14/18 Wool Alcoh/Min Oil/Radha/[place] (Eucerin Creme) 454 Gm Cream.gm., 454 GM TP BID, #1 TUB Prov:MARQUIS DUNN PA-C 07/14/18 Hydrocortisone* Topical (Hydrocortisone* Topical) 2.5%-28.3 Gm Cream..g., 1 APPLIC TOP BID, #1 TUB Prov:MARQUIS DUNN PA-C 07/14/18 Hydroxyzine Hcl* (Hydroxyzine Hcl*) 50 Mg Tablet, 50 MG PO Q6H PRN for ITCHING, #30 TAB Prov:SHAILA DALE 07/04/18 Reported Medications Famotidine* (Famotidine*) 20 Mg Tablet, 20 MG PO DAILY, #30 TAB 01/28/18 Tramadol Hcl* (Ultram*) 50 Mg Tablet, 50 MG PO Q4 PRN for PAIN, TAB 01/28/18 Allergies Allergies: Coded Allergies: No Known Allergy (Unverified , 01/24/19) PMhx/Soc Medical and Surgical Hx: pt denies Medical Hx, pt denies Surgical Hx History of Surgery: No Anesthesia Reaction: No Hx Neurological Disorder: No Hx Respiratory Disorders: No Hx Cardiac Disorders: No Hx Psychiatric Problems: No Hx Miscellaneous Medical Probl: No Hx Alcohol Use: No Hx Substance Use: No Hx Tobacco Use: No Smoking Status: Never smoker FmHx Family History: diabetes Physical Exam Vitals Vital Signs Date Temp Pulse Resp B/P (MAP) Pulse Ox O2 O2 Flow FiO2 Time Delivery Rate 01/30/19 99.4 80 18 115/81 99 15:40 (92) Physical Exam Const: No acute distress Head: Atraumatic Eyes: Normal Conjunctiva ENT: Normal External Ears, Nose and Mouth. Neck: Full range of motion. No meningismus. Resp: Clear to auscultation bilaterally Cardio: Regular rate and rhythm, no murmurs Abd: Soft, non tender, non distended. Normal bowel sounds Skin: Packing in the right anterior thigh without pus Back: No midline or flank tenderness Ext: No cyanosis, or edema Neur: Awake and alert Psych: Normal Mood and Affect Procedures/MDM Packing removal: I was easily able to remove packing at the right thigh without difficulty. There was no blood loss. There is surrounding induration but no pus from the wound. Patient is a 40-year-old male presents for packing removal. I remove the packing at the bedside. The patient will continue to heal by secondary intention. The patient can return for any worsening symptoms. He said that he is taking his insulin as directed and is keeping his sugars under control. He can return for any worsening symptoms. Departure Diagnosis: Primary Impression: Abscess packing removal Additional Impression: Encounter for wound re-check Condition: Fair Patient Instructions: Wound Care Referrals: [facility]) Usted se juarez hecho un examen mdico de control que le indica que no est en mariano condicin que requiera tratamiento urgente en el Departamento de Emergencia. Un estudio ms profundo y el tratamiento de nova condicin pueden esperar sin ningn riesgo hasta que usted sea atendida/o en el consultorio de nova mdico o mariano clnica. Es responsabilidad suya arreglar mariano tahira para el seguimiento del tayla. MANEJO DE CONDICIONES NO URGENTES EN EL FUTURO 1) Si usted tiene un mdico de atencin primaria: Usted debera llamar a nova mdico de atencin primaria antes de venir al departamento de emergencia. Despus de las horas de consultorio, nova doctor o nova asociado/a est disponible por telfono. El mdico o enfermero de nathaly en el servicio telefnico puede asesorarle por nguyen medio para atender el problema, o tayla contrario se puede programar mariano tahira. 2) Si usted no tiene un mdico de atencin primaria: Llame al mdico o clnica de referencia que aparece abajo michelle las horas de consultorio para hacer mariano tahira para que le vean. CLINICAS: [facility] [phone] [address] [facility] [phone] [facility] [phone] [place] [phone] [place] [address] [phone] [facility]. [phone] [address] Additional Instructions: Llame al doctor nombrado abajo (Referral Sources) MAANA y fam mariano TAHIRA PARA DENTRO DE MARIANO SEMANA. Dgale a la secretaria que nosotros le instruimos hacer esta tahira.Avise o llame si nova condicin se empeora antes de la tahira. CARMEN BROWN MD January 30, 2019 16:36
== END 2019-01-30 16:24 | disposition home or self-care (01) ==
LOC: E/R 15:37
DX: Z48.01 Encounter for change or removal of surgical wound dressing (principal); E11.9 Type 2 diabetes mellitus without complications; Z79.4 Long term (current) use of insulin
CPT/HCPCS: 99281

== ENCOUNTER 2019-04-05 21:51 | Inpatient (IN) | payer MEDICAID ==
[~2019-04-05] VITALS: Ht 154.9 cm; Wt 61.4 kg
[2019-04-05] MEDS ORDERED: SOD CHLORIDE 0.9% 500 ML IV STA (23:54)
[2019-04-05] MEDS ORDERED: PIPER-TAZO 3.375 GM IV (PMX) 100 ML IVPB STA (23:54)
[2019-04-06] VITALS (9 sets, daily range): BP systolic 92–129; BP diastolic 62–79; PULSE 67–90; RESP 16–20; Ht 154.9 cm; Wt 61.4 kg
[2019-04-06] MEDS ORDERED: DEXTROSE 10%/0.45% NACL 1,000 ML IV SCH (01:03)
[2019-04-06] MEDS ORDERED: NS + KCL 40 MEQ 1,000 ML IV SCH (01:03)
[2019-04-06] MEDS ORDERED: SOD CHLORIDE 0.9% 1,000 ML IV SCH (01:03)
[2019-04-06] MEDS ORDERED: D10/0.45% NACL + KCL 30 MEQ 1,000 ML IV SCH (01:03)
[2019-04-06] MEDS ORDERED: D10/0.45% NACL + KCL 40 MEQ 1,000 ML IV SCH (01:03)
[2019-04-06] MEDS ORDERED: NS + KCL 30 MEQ 1,000 ML IV SCH (01:03)
--- NOTE | 2019-04-06 01:23 | HP ---
Date/Time of Note Date/Time of Note DATE: 04/06/19 TIME: 01:22 Assessment/Plan VTE Prophylaxis SCD applied (from Nsg): Yes Pharmacological prophylaxis: NA/contraindicated Pharm contraindication: low risk/ambulating Lines/Catheters IV Catheter Type (from Nrsg): Saline Lock Assessment/Plan Hospital Course This is a 40-year-old male being admitted being admitted to the ICU floor for: #1 diabetic ketoacidosis: Possibly secondary to, noncompliance, underlying infection versus other. DKA protocol has been initiated. Serial labs. Insulin drip. Consult endocrinology. #2 diabetes mellitus: We will need to confirm patient's home medications including insulin dose. And resume prior to discharge. #3 right knee swelling: We will obtain x-rays of the right knee, will also obtain CT of the lower extremity. Will treat at the current time for suspected cellulitis with broad-spectrum antibiotics. Also check uric acid level. #4 pseudohyponatremia: Corrected sodium 140. #5 history of alcohol use: We will check blood alcohol level, PRN Ativan #6 DVT GI prophylaxis: SCDs left lower extremity, H2 eliceo Further treatment strategy will be implemented as per the clinical course Result Diagram: 04/05/19 2301 04/05/19 2301 Results 24hrs Laboratory Tests Test 04/05/19 23:01 White Blood Count 12.2 #H Red Blood Count 4.19 L Hemoglobin 13.0 L Hematocrit 37.2 L Mean Corpuscular Volume 88.8 Mean Corpuscular Hemoglobin 31.0 Mean Corpuscular Hemoglobin Concent 34.9 Red Cell Distribution Width 12.6 Platelet Count 296 # Mean Platelet Volume 10.8 H Immature Granulocytes % 0.500 H Neutrophils % 87.0 H Lymphocytes % 6.1 L Monocytes % 5.3 Eosinophils % 0.7 Basophils % 0.4 Nucleated Red Blood Cells % 0.0 Immature Granulocytes # 0.060 H Neutrophils # 10.6 H Lymphocytes # 0.7 L Monocytes # 0.6 Eosinophils # 0.1 Basophils # 0.1 Nucleated Red Blood Cells # 0.0 Urine Color COLORLESS Urine Clarity CLEAR Urine pH 5.0 Urine Specific [place] 1.027 Urine Ketones 1+ H Urine Nitrite NEGATIVE Urine Bilirubin NEGATIVE Urine Urobilinogen NEGATIVE Urine Leukocyte Esterase NEGATIVE Urine Hemoglobin NEGATIVE Urine Glucose 3+ H Urine Total Protein NEGATIVE Sodium Level 130 L Potassium Level 4.2 Chloride Level 98 Carbon Dioxide Level 15 L Anion Gap 17 H Blood Urea Nitrogen 14 Creatinine 0.67 Est Glomerular Filtrat Rate mL/min > 60 Glucose Level 750 *H Calcium Level 9.0 Total Bilirubin 0.4 Direct Bilirubin 0.00 Indirect Bilirubin 0.4 Aspartate Amino Transf (AST/SGOT) 9 L Alanine Aminotransferase (ALT/SGPT) 21 Alkaline Phosphatase 232 H Total Protein 7.6 Albumin 3.9 Globulin 3.70 H Albumin/Globulin Ratio 1.05 Lipase 123 HPI/ROS Admit Date/Time Admit Date/Time Hx of Present Illness Chief complaint: Right knee swelling redness x4 days This is a 48-year-old male with a past medical history of diabetes mellitus and hyperlipidemia who presented to the emergency department with complaints of right knee redness and swelling x4 days. Patient reports that he also felt like the knee had been ripped. He denies any chest pain or nausea vomiting or diarrhea. Denies any trauma to the leg. Patient does report that he did not use his insulin yesterday. Allergies: NKDA Medications: See Nov Const: As per HPI Eyes : No pain discharge or redness or change in visual acuity ENT: No pain, sore throat, congestion, congestion, dysphagia or discharge Respiratory: No shortness of breath, cough, sputum, wheezing, or pleuritic pain Cardiovascular: No chest pain, palpitation, PND, or edema GI : no change in appetite, abdominal pain, nausea, vomiting, diarrhea, constipation, or change in the color his stool Genitourinary: No dysuria, hematuria, flank pain , discharge or CVA tenderness Musculoskeletal: As per HPI Skin: As per HPI Neuro: No headache, dizziness, syncope, seizure, focal weakness Endocrine: No polyuria, polydipsia, temperature intolerance Psych: No hallucination, depression, anxiety or suicidal ideation PMH/Family/Social Past Medical History Diabetes mellitus, hyperlipidemia Medications Current Medications Potassium Chloride/Sodium Chloride 1,000 ml @ 0 mls/hr Q0M IV ; Start 04/06/19 at 01:03 Potassium Chloride/Dextrose/ Sod Cl 1,000 ml @ 0 mls/hr Q0M IV ; Start 04/06/19 at 01:03 Potassium Chloride/Sodium Chloride 1,000 ml @ 0 mls/hr Q0M IV ; Start 04/06/19 at 01:03 Potassium Chloride/Dextrose/ Sod Cl 1,000 ml @ 0 mls/hr Q0M IV ; Start 04/06/19 at 01:03 Sodium Chloride 1,000 ml @ 0 mls/hr Q0M IV ; Start 04/06/19 at 01:03 Dextrose/Sodium Chloride 1,000 ml @ 0 mls/hr Q0M IV ; Start 04/06/19 at 01:03 Insulin Human Regular 100 unit/ Sodium Chloride 101 ml @ 6.46 mls/hr ER DKA PROTOCOL IV ; Start 04/06/19 at 01:30 Lactated Ringer's 640 ml @ 640 mls/hr ONCE ONCE IV Last administered on 04/06/19at 01:16; Admin Dose 640 MLS/HR; Start 04/06/19 at 01:30; Stop 04/06/19 at 02:29 Miscellaneous Information (* Miscellaneous Pharmacy Order) HYPOGLYCEMIA TREATMENT HYPOGLYCEM PROTOCOL PRN XX .HYPOGLYCEMIA PROTOCOL; Start 04/06/19 at 01:30 Dextrose (D50w Syringe) 50 ml Q15M PRN IV .DECREASED GLUCOSE; Start 04/06/19 at 01:30 Dextrose (D50w Syringe) 25 ml Q15M PRN IV .DECREASED GLUCOSE; Start 04/06/19 at 01:30 Ondansetron HCl (Zofran Inj) 4 mg Q6H PRN IV NAUSEA AND/OR VOMITING; Start 04/06/19 at 01:30; Status UNV Albuterol (Proventil 0.083% (Neb)) 2.5 mg Q4H RESP THERAPY NEB ; Start 04/06/19 at 05:00; Status UNV Ipratropium [place] (Atrovent 0.02% (Neb)) 0.5 mg Q4H RESP THERAPY NEB ; Start 04/06/19 at 05:00; Status UNV Acetaminophen (Tylenol Liquid) 650 mg Q6H PRN PO PAIN LEVEL 1-3 OR FEVER; S tart 04/06/19 at 01:30; Status UNV Acetaminophen/ Hydrocodone Bitart ([place] (5/325)) 1 tab Q6H PRN PO PAIN LEVEL 4-6; Start 04/06/19 at 01:30; Status UNV Docusate Sodium (Colace) 100 mg Q12H PRN PO CONSTIPATION; Start 04/06/19 at 01:30; Status UNV Bisacodyl (Dulcolax) 5 mg DAILY PRN PO CONSTIPATION; Start 04/06/19 at 01:30; Status UNV Famotidine (Pepcid Iv) 20 mg Q12 IV ; Start 04/06/19 at 01:30; Status UNV Enoxaparin Sodium (Lovenox) 40 mg DAILY SC ; Start 04/06/19 at 09:00; Status UNV Vancomycin HCl (Vanco Iv Per Pharmacy) VANCOMYCIN PER PHARMACY PER PROTOCOL XX ; Start 04/06/19 at 01:30; Status UNV Lorazepam (Ativan) 1 mg Q4 PRN IV CONTROL WITHDRAWAL SYMPTOMS; Start 04/06/19 at 01:30; Status UNV Coded Allergies: No Known Allergy (Unverified , 01/24/19) Past Surgical History Past Surgical Hx: no surgical history Family History Significant Family History: diabetes Social History Alcohol Use: occasionally Smoking Status: Never smoker Drug Use: none Exam/Review of Systems Vital Signs Vitals Vital Signs Date Temp Pulse Resp B/P (MAP) Pulse Ox O2 O2 Flow FiO2 Time Delivery Rate 04/06/19 80 22 130/83 100 Room Air 00:31 (99) 04/05/19 97.5 22:03 Exam Exam General: Patient is a pleasant male currently lying in bed in no acute distress HEENT: Atraumatic, normocephalic. The pupils are equal, round and reactive. Extraocular motor are intact Neck: Supple with full range of motion. No rigidity or meningismus Chest: Nontender Lungs: Clear to auscultation bilaterally no crackles rales or wheezing Heart: Normal S1-S2, Regular rhythm and rate. No murmur, S3, or S4 Abdomen: Soft , nontender, nondistended , bowel sounds are present. No guarding no rebound tenderness , No masses or organomegaly. No costovertebral temporal angle mass Extremities: Redness erythema and swelling noted of the right knee. Tender to palpation Neurologic: Normal mental status, speech normal, cranial nerves II through XII are intact, motor and sensory are intact, no focal weakness SASHA KELLEY Apr 06, 2019 01:23
[2019-04-06] MEDS ORDERED: FAMOTIDINE 20 MG INJ IV SCH (01:30)
[2019-04-06] MEDS ORDERED: BISACODYL (EC) 5 MG TAB PO PRN (01:30)
[2019-04-06] MEDS ORDERED: ACETAMINOPHEN 650MG/20.3ML CUP PO PRN (01:30)
[2019-04-06] MEDS ORDERED: DOCUSATE SODIUM 100 MG CAP PO PRN (01:30)
[2019-04-06] MEDS ORDERED: VANCOMYCIN IV PER PHARMACY XX SCH (01:30)
[2019-04-06] MEDS ORDERED: DEXTROSE 50% 50 ML SYRINGE IV PRN ×6 (01:30→08:00)
[2019-04-06] MEDS ORDERED: LORAZEPAM 2 MG INJ IV PRN (01:30)
[2019-04-06] MEDS ORDERED: LACTATED RINGER'S 640 ML IV ONE (01:30)
[2019-04-06] MEDS ORDERED: INSULIN REGULAR, HUMAN 100 UNIT in SOD CHLORIDE 0.9% 100 ML IV SCH ×2 (01:30)
[2019-04-06] MEDS ORDERED: ONDANSETRON 4 MG INJ IV PRN (01:30)
[2019-04-06] MEDS ORDERED: VANCOMYCIN HCL 1.25 GM in SOD CHLORIDE 0.9% 250 ML IVPB ONE (02:00)
--- NOTE | 2019-04-06 02:07 | ERD ---
ER Documentation Chief Complaint Chief Complaint pain/swelling/redness right leg above knee x 5 days HPI This is a 48-year-old nondiabetic male who comes in with complaints of upper thigh erythema and induration on the right side for the past 5 days getting progressively worse. Denies any drainage. Denies any fevers or chills. Denies any other current complaints. Fingerstick was noted to be HI at home. ROS All systems reviewed and are negative except as per history of present illness. Medications Home Meds Active Scripts Acetaminophen* (Tylenol*) 325 Mg Tablet, 2 TAB PO Q6 PRN for PAIN AND OR ELEVATED TEMP, #20 TAB Prov:LIAM ROWE MD 01/23/19 Acetaminophen* (Tylophen*) 500 Mg Capsule, 1 CAP PO Q6H PRN for PAIN AND OR ELEVATED TEMP, #20 CAP Prov:DHRUV DIAZ PA-C 01/20/19 Sulfamethoxazole/Trimethoprim* (Bactrim Ds* Tablet) 1 Each Tablet, 1 TAB PO BID, #14 TAB Prov:DHRUV DIAZ PA-C 01/20/19 Cephalexin* (Keflex*) 500 Mg Capsule, 500 MG PO TID for 7 Days, CAP Prov:DHRUV DIAZ PA-C 01/20/19 Sitagliptin* (Januvia*) 100 Mg Tablet, 100 MG PO DAILY, #30 TAB 3 Refills Prov:RENATO BURNS 09/15/18 Insulin Aspart* (Novolog Insulin Pen*) 100 Unit/Ml Soln, 6 UNIT SC WITH MEALS for 30 Days, #1 BOX 3 Refills alternative: humalog at same dose, directions, and refills Prov:RENATO BURNS 09/15/18 [Insulin Glargine] 100 UNITS/ML SOLN No Conflict Check, 16 UNITS SC DAILY@08 for 30 Days, #1 BOX 3 Refills alternative:wolfgang singletary tresiba. Same dose and direction with same refills Prov:RENATO BURNS 09/15/18 Loratadine* (Claritin*) 10 Mg Capsule, 10 MG PO DAILY, #15 CAP Prov:MARQUIS DUNN PA-C 07/14/18 Albuterol Sulfate* (Ventolin HFA*) 18 Gm Hfa.aer.ad, 2 PUFF INHALATION Q4H, #1 INHALER Prov:MARQUIS DUNN PA-C 07/14/18 Wool Alcoh/Min Oil/Radha/[place] (Eucerin Creme) 454 Gm Cream.gm., 454 GM TP BID, #1 TUB Prov:MARQUIS DUNN PA-C 07/14/18 Hydrocortisone* Topical (Hydrocortisone* Topical) 2.5%-28.3 Gm Cream..g., 1 APPLIC TOP BID, #1 TUB Prov:MARQUIS DUNN PA-C 07/14/18 Hydroxyzine Hcl* (Hydroxyzine Hcl*) 50 Mg Tablet, 50 MG PO Q6H PRN for ITCHING, #30 TAB Prov:SHAILA DALE 07/04/18 Reported Medications Famotidine* (Famotidine*) 20 Mg Tablet, 20 MG PO DAILY, #30 TAB 01/28/18 Tramadol Hcl* (Ultram*) 50 Mg Tablet, 50 MG PO Q4 PRN for PAIN, TAB 01/28/18 Allergies Allergies: Coded Allergies: No Known Allergy (Unverified , 01/24/19) PMhx/Soc History of Surgery: No Anesthesia Reaction: No Hx Neurological Disorder: No Hx Respiratory Disorders: No Hx Cardiac Disorders: No Hx Psychiatric Problems: No Hx Miscellaneous Medical Probl: No Hx Alcohol Use: No Hx Substance Use: No Hx Tobacco Use: No Smoking Status: Never smoker Physical Exam Vitals Vital Signs Date Temp Pulse Resp B/P (MAP) Pulse Ox O2 O2 Flow FiO2 Time Delivery Rate 04/06/19 80 22 130/83 100 Room Air 00:31 (99) 04/05/19 97.5 85 18 121/82 98 22:03 (95) Physical Exam Const: No acute distress Head: Atraumatic Eyes: Normal Conjunctiva ENT: Normal External Ears, Nose and Mouth. Neck: Full range of motion. No meningismus. Resp: Clear to auscultation bilaterally Cardio: Regular rate and rhythm, no murmurs Abd: Soft, non tender, non distended. Normal bowel sounds Skin: No petechiae or rashes Back: No midline or flank tenderness Ext: Right lower extremity approximately 2 inches above the kneecap shows erythema and induration of 5 cm diameter with no central fluctuance Neur: Awake and alert Psych: Normal Mood and Affect Result Diagram: 04/05/19230004/05/192300 Results 24 hrs Laboratory Tests Test 04/05/19 23:01 White Blood Count 12.2 10^3/ul Red Blood Count 4.19 10^6/ul Hemoglobin 13.0 g/dl Hematocrit 37.2 % Mean Corpuscular Volume 88.8 fl Mean Corpuscular Hemoglobin 31.0 pg Mean Corpuscular Hemoglobin Concent 34.9 g/dl Red Cell Distribution Width 12.6 % Platelet Count 296 10^3/UL Mean Platelet Volume 10.8 fl Immature Granulocytes % 0.500 % Neutrophils % 87.0 % Lymphocytes % 6.1 % Monocytes % 5.3 % Eosinophils % 0.7 % Basophils % 0.4 % Nucleated Red Blood Cells % 0.0 /100WBC Immature Granulocytes # 0.060 10^3/ul Neutrophils # 10.6 10^3/ul Lymphocytes # 0.7 10^3/ul Monocytes # 0.6 10^3/ul Eosinophils # 0.1 10^3/ul Basophils # 0.1 10^3/ul Nucleated Red Blood Cells # 0.0 10^3/ul Urine Color COLORLESS Urine Clarity CLEAR Urine pH 5.0 Urine Specific [place] 1.027 Urine Ketones 1+ mg/dL Urine Nitrite NEGATIVE mg/dL Urine Bilirubin NEGATIVE mg/dL Urine Urobilinogen NEGATIVE mg/dL Urine Leukocyte Esterase NEGATIVE Sergio/ul Urine Hemoglobin NEGATIVE mg/dL Urine Glucose 3+ mg/dL Urine Total Protein NEGATIVE mg/dl Sodium Level 130 mmol/L Potassium Level 4.2 mmol/L Chloride Level 98 mmol/L Carbon Dioxide Level 15 mmol/L Anion Gap 17 Blood Urea Nitrogen 14 mg/dl Creatinine 0.67 mg/dl Est Glomerular Filtrat Rate mL/min > 60 mL/min Glucose Level 750 mg/dl Calcium Level 9.0 mg/dl Total Bilirubin 0.4 mg/dl Direct Bilirubin 0.00 mg/dl Indirect Bilirubin 0.4 mg/dl Aspartate Amino Transf (AST/SGOT) 9 IU/L Alanine Aminotransferase (ALT/SGPT) 21 IU/L Alkaline Phosphatase 232 IU/L Total Protein 7.6 g/dl Albumin 3.9 g/dl Globulin 3.70 g/dl Albumin/Globulin Ratio 1.05 Lipase 123 U/L Current Medications Medications Dose Sig/Nena Start Time Status Last (Trade) Ordered Route PRN Stop Time Admin Dose Reason Admin Sodium 500 ml @ Q1H STAT 04/05/19 DC 04/06/19 Chloride 500 mls/hr IV 23:54 04/06/19 00:23 00:53 Piperacillin 100 ml @ ONCE STAT 04/05/19 DC 04/06/19 Sod/ 200 mls/hr IVPB 23:54 04/06/19 00:25 Tazobactam 00:23 Sod Potassium 1,000 ml @ Q0M IV 04/06/19 Chloride/Sodi 0 mls/hr 01:03 um Chloride Potassium 1,000 ml @ Q0M IV 04/06/19 Chloride/Dext 0 mls/hr 01:03 [place]/ Sod Cl Potassium 1,000 ml @ Q0M IV 04/06/19 Chloride/Sodi 0 mls/hr 01:03 um Chloride Potassium 1,000 ml @ Q0M IV 04/06/19 Chloride/Dext 0 mls/hr 01:03 [place]/ Sod Cl Sodium 1,000 ml @ Q0M IV 04/06/19 Chloride 0 mls/hr 01:03 1,000 ml @ Q0M IV 04/06/19 Dextrose/Sodi 0 mls/hr 01:03 um Chloride Insulin 101 ml @ ER DKA 04/06/19 Human 6.46 mls/hr PROTOCOL IV 01:30 Regular 100 unit/ Sodium Chloride Lactated 640 ml @ ONCE ONCE 04/06/19 04/06/19 Ringer's 640 mls/hr IV 01:30 04/06/19 01:16 02:29 HYPOGLYCEM 04/06/19 Miscellaneous HYPOGLYCEMIA PROTOCOL PRN 01:30 TREATMENT XX Information .HYPOGLYCEMIA (* PROTOCOL Miscellaneous Pharmacy Order) Dextrose 50 ml Q15M PRN 04/06/19 (D50w IV 01:30 Syringe) .DECREASED GLUCOSE Dextrose 25 ml Q15M PRN 04/06/19 (D50w IV 01:30 Syringe) .DECREASED GLUCOSE Ondansetron 4 mg Q6H PRN 04/06/19 HCl (Zofran IV NAUSEA 01:30 Inj) AND/OR VOMITING Albuterol 2.5 mg Q4H RESP 04/06/19 (Proventil THERAPY NEB 05:00 0.083% (Neb)) Ipratropium 0.5 mg Q4H RESP 04/06/19 [place] THERAPY NEB 05:00 (Atrovent 0.02% (Neb)) 650 mg Q6H PRN 04/06/19 Acetaminophen PO PAIN 01:30 (Tylenol LEVEL 1-3 OR Liquid) FEVER 1 tab Q6H PRN 04/06/19 Acetaminophen PO PAIN 01:30 / LEVEL 4-6 Hydrocodone Bitart ([place] (5/325)) Docusate 100 mg Q12H PRN 04/06/19 Sodium PO 01:30 (Colace) CONSTIPATION Bisacodyl 5 mg DAILY PRN 04/06/19 (Dulcolax) PO 01:30 CONSTIPATION Famotidine 20 mg Q12 IV 04/06/19 04/06/19 (Pepcid Iv) 01:30 01:56 Enoxaparin 40 mg DAILY SC 04/06/19 Sodium 09:00 (Lovenox) Vancomycin VANCOMYCIN PER 04/06/19 HCl (Vanco PER PHARMACY PROTOCOL XX 01:30 Iv Per Pharmacy) Lorazepam 1 mg Q4 PRN IV 04/06/19 (Ativan) CONTROL 01:30 WITHDRAWAL SYMPTOMS Vancomycin 250 ml @ ONCE ONCE 04/06/19 HCl 1.25 83.333 mls/ IVPB 02:00 04/06/19 gm/Sodium hr 04:59 Chloride Procedures/MDM Medical decision makin-year-old male has evidence of cellulitis and now has evidence of diabetic ketoacidosis. Patient was started on DKA this was noted. Patient will be admitted to intensive care setting to Dr. Knutson Critical Care: Time: 45 minutes, independent of any separately billable procedural time Treatments/Evaluations: Close monitoring and treatment of unstable vital signs, cardiorespiratory, and neurologic status, while maintaining tight balance of fluid, respiratory, and cardiac interventions. Departure Diagnosis: Primary Impression: Type 2 diabetes mellitus with hyperglycemia Diabetes mellitus [facility] insulin use: unspecified terminal superintendent insulin use status Qualified Codes: E11.65 - Type 2 diabetes mellitus with hyperglycemia Additional Impressions: Hyperglycemia DKA (diabetic ketoacidoses) Diabetes mellitus type: type 2 Diabetes mellitus complication detail: without coma Qualified Codes: E11.10 - Type 2 diabetes mellitus with ketoacidosis without coma Condition: Critical MARQUIS TOMLINSON Apr 06, 2019 02:07
[2019-04-06] MEDS ORDERED: hydrOXYzine HCL 50 MG TAB PO PRN (05:00)
[2019-04-06] MEDS: IPRATROPIUM (NEB) 0.5 MG/2.5 ML AMP NEB SCH ×5 (05:11→20:56)
[2019-04-06] MEDS: ALBUTEROL 0.083% (NEB) 2.5 MG/3 ML AMP NEB SCH ×5 (05:11→20:55)
[2019-04-06] MEDS ORDERED: hydrOXYzine HCL 25 MG TAB PO PRN (06:00)
[2019-04-06] MEDS ORDERED: ACCU-CHEK XX SCH (07:30)
[2019-04-06] MEDS: INSULIN ASPART [NOVOLOG] 3 ML PEN SC SCH ×4 (07:35→21:28)
[2019-04-06] MEDS ORDERED: GLUCOSE GEL 15 GRAM TUBE PO PRN ×2 (08:00)
[2019-04-06] MEDS ORDERED: INSULIN GLARGINE [LANTus] (100 UNITS/ML) SYG SC ONE (08:00)
[2019-04-06] MEDS ORDERED: GLUCAGON 1 MG INJ IM PRN (08:00)
[2019-04-06] MEDS ORDERED: GLUCOSE GEL 15 GRAM TUBE BUCCAL PRN (08:00)
[2019-04-06] MEDS: FAMOTIDINE 20 MG TAB PO SCH (08:31)
[2019-04-06] MEDS: ENOXAPARIN 40 MG/0.4 ML SYG SC SCH (08:31)
[2019-04-06] MEDS: ACCU-CHEK XX SCH ×4 (08:32→21:00)
[2019-04-06] MEDS: LORATADINE 10 MG TAB PO SCH (08:33)
[2019-04-06] MEDS ORDERED: INSULIN HUMAN REGULAR 100 UNIT in SOD CHLORIDE 0.9% 99 ML IV SCH (09:00)
[2019-04-06] MEDS: HYDROCODONE/APAP (5/325) TAB PO PRN ×2 (13:42→23:09)
[2019-04-06] MEDS: VANCOMYCIN 1 GM 250 ML IVPB SCH (15:51)
--- NOTE | 2019-04-06 16:53 | PN ---
Date/Time of Note Date/Time of Note DATE: 04/06/19 TIME: 16:51 Assessment/Plan VTE Prophylaxis Risk score (from Ns)>0 risk: 2 SCD applied (from Ns): Yes Pharmacological prophylaxis: heparin Lines/Catheters IV Catheter Type (from [facility]): Peripheral IV Assessment/Plan Hospital Course AOx3 RRR CTAB R leg with area of rubor, dolor, calor above knee with induration A/P: 48 yo male wtih DKA and likely abscess of leg DKA: - Resolved DMII: - Basal/bolus insulin Knee infection: - Abscess likley. Dr Stevenson consulted for consideration of I and D - Continue vanco/zosyn for now RAULITO: - Resolved with fluids Result Diagram: 04/06/19 0442 04/06/19 1355 Results 24hrs Laboratory Tests Test 04/05/19 23:01 04/05/19 23:57 04/06/19 02:36 04/06/19 02:39 White Blood Count 12.2 #H Red Blood Count 4.19 L Hemoglobin 13.0 L Hematocrit 37.2 L Mean Corpuscular 88.8 Volume Mean Corpuscular 31.0 Hemoglobin Mean Corpuscular 34.9 Hemoglobin Concent Red Cell 12.6 Distribution Width Platelet Count 296 # Mean Platelet 10.8 H Volume Immature 0.500 H Granulocytes % Neutrophils % 87.0 H Lymphocytes % 6.1 L Monocytes % 5.3 Eosinophils % 0.7 Basophils % 0.4 Nucleated Red 0.0 Blood Cells % Immature 0.060 H Granulocytes # Neutrophils # 10.6 H Lymphocytes # 0.7 L Monocytes # 0.6 Eosinophils # 0.1 Basophils # 0.1 Nucleated Red 0.0 Blood Cells # Urine Color COLORLESS Urine Clarity CLEAR Urine pH 5.0 Urine Specific 1.027 [place] Urine Ketones 1+ H Urine Nitrite NEGATIVE Urine Bilirubin NEGATIVE Urine Urobilinogen NEGATIVE Urine Leukocyte NEGATIVE Esterase Urine Hemoglobin NEGATIVE Urine Glucose 3+ H Urine Total NEGATIVE Protein Sodium Level 130 L 135 Potassium Level 4.2 3.9 Chloride Level 98 106 Carbon Dioxide 15 L 17 L Level Anion Gap 17 H 12 Blood Urea 14 12 Nitrogen Creatinine 0.67 0.52 L Est Glomerular > 60 > 60 Filtrat Rate mL/min Glucose Level 750 *H 493 #*H Calcium Level 9.0 8.6 Total Bilirubin 0.4 Direct Bilirubin 0.00 Indirect Bilirubin 0.4 Aspartate Amino 9 L Transf (AST/SGOT) Alanine 21 Aminotransferase ( ALT/SGPT) Alkaline 232 H Phosphatase Total Protein 7.6 Albumin 3.9 Globulin 3.70 H Albumin/Globulin 1.05 Ratio Lipase 123 Hemoglobin A1c 12.7 H Urine Opiates Negative Screen Urine Barbiturates Negative Urine Amphetamines Negative Screen Urine Negative Benzodiazepines Screen Urine Cocaine Negative Screen Urine Cannabinoids Negative Ethyl Alcohol < 10.0 H Level Phosphorus Level 2.8 Magnesium Level 2.0 Bedside Glucose 450 *H Test 04/06/19 03:03 04/06/19 04:00 04/06/19 04:42 04/06/19 04:58 Blood Gas Specimen Blood venous Source Arterial Blood 04/06/2019 2:32:20 Date Drawn AM Arterial Blood Gas VENOUS LINE Puncture Site Damon Test N/A Venous Blood pH 7.353 Venous Blood pCO2 29.4 L (Temp Corrected) Venous Blood pO2 58.5 H (Temp Corrected) Venous Blood HCO3 16.0 L Venous Blood 90.7 H Oxygen Saturation Venous Blood Base -8.2 L Excess Venous Blood Total 13.0 Hemoglobin Venous Blood 90.3 Oxyhemoglobin Venous Blood 0 Methemoglobin Carboxyhemoglobin 0.4 Blood Gas 37.0 Temperature Blood Gas Modality ROOM AIR FiO2 21.0 Blood Gas Notified AA Whom Blood Gas Notified 04/06/2019 2:38:18 Time AM Bedside Glucose 343 H 191 White Blood Count 10.4 Red Blood Count 3.47 L Hemoglobin 10.8 L Hematocrit 30.4 L Mean Corpuscular 87.6 Volume Mean Corpuscular 31.1 Hemoglobin Mean Corpuscular 35.5 Hemoglobin Concent Red Cell 12.5 Distribution Width Platelet Count 258 Mean Platelet 10.7 H Volume Immature 0.600 H Granulocytes % Neutrophils % 81.0 H Lymphocytes % 10.9 L Monocytes % 6.0 Eosinophils % 0.9 Basophils % 0.6 Nucleated Red 0.0 Blood Cells % Immature 0.060 H Granulocytes # Neutrophils # 8.4 H Lymphocytes # 1.1 Monocytes # 0.6 Eosinophils # 0.1 Basophils # 0.1 Nucleated Red 0.0 Blood Cells # Uric Acid 2.4 L Test 04/06/19 05:03 04/06/19 05:54 04/06/19 06:54 04/06/19 06:55 Blood Gas Specimen Blood venous Source Arterial Blood 04/06/2019 5:02:00 Date Drawn AM Arterial Blood Gas VENOUS LINE Puncture Site Damon Test N/A Venous Blood pH 7.360 Venous Blood pCO2 35.7 (Temp Corrected) Venous Blood pO2 35.9 H (Temp Corrected) Venous Blood HCO3 19.7 L Venous Blood 72.8 Oxygen Saturation Venous Blood Base -5.0 Excess Venous Blood Total 12.9 Hemoglobin Venous Blood 72.3 Oxyhemoglobin Venous Blood 0 Methemoglobin Carboxyhemoglobin 0.7 Blood Gas 37.0 Temperature Blood Gas Modality ROOM AIR FiO2 21.0 Blood Gas Notified Whom Blood Gas Notified 04/06/2019 5:18:00 Time AM Bedside Glucose 263 H 241 H Sodium Level 141 Potassium Level 8.6 #*H Chloride Level 125 H Carbon Dioxide 15 L Level Anion Gap 1 #L Blood Urea 8 Nitrogen Creatinine 0.37 L Est Glomerular > 60 Filtrat Rate mL/min Glucose Level 193 # Calcium Level 6.5 L Phosphorus Level 1.6 #L Magnesium Level 1.5 L Test 04/06/19 07:53 04/06/19 08:59 04/06/19 09:19 04/06/19 09:54 Bedside Glucose 206 129 122 Sodium Level 141 Potassium Level 3.0 #L Chloride Level 112 H Carbon Dioxide 22 Level Anion Gap 7 Blood Urea 8 Nitrogen Creatinine 0.41 L Est Glomerular > 60 Filtrat Rate mL/min Glucose Level 141 # Calcium Level 8.1 L Phosphorus Level 1.4 L Magnesium Level 1.9 Test 04/06/19 11:07 04/06/19 12:28 04/06/19 13:55 Bedside Glucose 185 269 H Sodium Level 139 Potassium Level 3.3 L Chloride Level 110 Carbon Dioxide 22 Level Anion Gap 7 Blood Urea 8 Nitrogen Creatinine 0.47 L Est Glomerular > 60 Filtrat Rate mL/min Glucose Level 178 Calcium Level 8.4 Phosphorus Level 2.0 L Magnesium Level 1.9 Subjective 24 Hr Interval Summary Free Text/Dictation DKA resolved Feels better Complains of pain at RLE site above knee Exam/Review of Systems Exam Vitals Vital Signs Date Temp Pulse Resp B/P (MAP) Pulse Ox O2 O2 Flow FiO2 Time Delivery Rate 04/06/19 98.7 76 17 92/62 (72) 100 Room Air 14:00 04/06/19 21 08:16 Intake and Output 04/05/19 04/05/19 04/06/19 1515:00 23:00 07:00 IntakeIntake Total 519.38 ml OutputOutput Total 0 ml BalanceBalance 519.38 ml Results Results 24hrs Laboratory Tests Test 04/05/19 23:01 04/05/19 23:57 04/06/19 02:36 04/06/19 02:39 White Blood Count 12.2 #H Red Blood Count 4.19 L Hemoglobin 13.0 L Hematocrit 37.2 L Mean Corpuscular 88.8 Volume Mean Corpuscular 31.0 Hemoglobin Mean Corpuscular 34.9 Hemoglobin Concent Red Cell 12.6 Distribution Width Platelet Count 296 # Mean Platelet 10.8 H Volume Immature 0.500 H Granulocytes % Neutrophils % 87.0 H Lymphocytes % 6.1 L Monocytes % 5.3 Eosinophils % 0.7 Basophils % 0.4 Nucleated Red 0.0 Blood Cells % Immature 0.060 H Granulocytes # Neutrophils # 10.6 H Lymphocytes # 0.7 L Monocytes # 0.6 Eosinophils # 0.1 Basophils # 0.1 Nucleated Red 0.0 Blood Cells # Urine Color COLORLESS Urine Clarity CLEAR Urine pH 5.0 Urine Specific 1.027 [place] Urine Ketones 1+ H Urine Nitrite NEGATIVE Urine Bilirubin NEGATIVE Urine Urobilinogen NEGATIVE Urine Leukocyte NEGATIVE Esterase Urine Hemoglobin NEGATIVE Urine Glucose 3+ H Urine Total NEGATIVE Protein Sodium Level 130 L 135 Potassium Level 4.2 3.9 Chloride Level 98 106 Carbon Dioxide 15 L 17 L Level Anion Gap 17 H 12 Blood Urea 14 12 Nitrogen Creatinine 0.67 0.52 L Est Glomerular > 60 > 60 Filtrat Rate mL/min Glucose Level 750 *H 493 #*H Calcium Level 9.0 8.6 Total Bilirubin 0.4 Direct Bilirubin 0.00 Indirect Bilirubin 0.4 Aspartate Amino 9 L Transf (AST/SGOT) Alanine 21 Aminotransferase ( ALT/SGPT) Alkaline 232 H Phosphatase Total Protein 7.6 Albumin 3.9 Globulin 3.70 H Albumin/Globulin 1.05 Ratio Lipase 123 Hemoglobin A1c 12.7 H Urine Opiates Negative Screen Urine Barbiturates Negative Urine Amphetamines Negative Screen Urine Negative Benzodiazepines Screen Urine Cocaine Negative Screen Urine Cannabinoids Negative Ethyl Alcohol < 10.0 H Level Phosphorus Level 2.8 Magnesium Level 2.0 Bedside Glucose 450 *H Test 04/06/19 03:03 04/06/19 04:00 04/06/19 04:42 04/06/19 04:58 Blood Gas Specimen Blood venous Source Arterial Blood 04/06/2019 2:32:20 Date Drawn AM Arterial Blood Gas VENOUS LINE Puncture Site Damon Test N/A Venous Blood pH 7.353 Venous Blood pCO2 29.4 L (Temp Corrected) Venous Blood pO2 58.5 H (Temp Corrected) Venous Blood HCO3 16.0 L Venous Blood 90.7 H Oxygen Saturation Venous Blood Base -8.2 L Excess Venous Blood Total 13.0 Hemoglobin Venous Blood 90.3 Oxyhemoglobin Venous Blood 0 Methemoglobin Carboxyhemoglobin 0.4 Blood Gas 37.0 Temperature Blood Gas Modality ROOM AIR FiO2 21.0 Blood Gas Notified AA Whom Blood Gas Notified 04/06/2019 2:38:18 Time AM Bedside Glucose 343 H 191 White Blood Count 10.4 Red Blood Count 3.47 L Hemoglobin 10.8 L Hematocrit 30.4 L Mean Corpuscular 87.6 Volume Mean Corpuscular 31.1 Hemoglobin Mean Corpuscular 35.5 Hemoglobin Concent Red Cell 12.5 Distribution Width Platelet Count 258 Mean Platelet 10.7 H Volume Immature 0.600 H Granulocytes % Neutrophils % 81.0 H Lymphocytes % 10.9 L Monocytes % 6.0 Eosinophils % 0.9 Basophils % 0.6 Nucleated Red 0.0 Blood Cells % Immature 0.060 H Granulocytes # Neutrophils # 8.4 H Lymphocytes # 1.1 Monocytes # 0.6 Eosinophils # 0.1 Basophils # 0.1 Nucleated Red 0.0 Blood Cells # Uric Acid 2.4 L Test 04/06/19 05:03 04/06/19 05:54 04/06/19 06:54 04/06/19 06:55 Blood Gas Specimen Blood venous Source Arterial Blood 04/06/2019 5:02:00 Date Drawn AM Arterial Blood Gas VENOUS LINE Puncture Site Damon Test N/A Venous Blood pH 7.360 Venous Blood pCO2 35.7 (Temp Corrected) Venous Blood pO2 35.9 H (Temp Corrected) Venous Blood HCO3 19.7 L Venous Blood 72.8 Oxygen Saturation Venous Blood Base -5.0 Excess Venous Blood Total 12.9 Hemoglobin Venous Blood 72.3 Oxyhemoglobin Venous Blood 0 Methemoglobin Carboxyhemoglobin 0.7 Blood Gas 37.0 Temperature Blood Gas Modality ROOM AIR FiO2 21.0 Blood Gas Notified Whom Blood Gas Notified 04/06/2019 5:18:00 Time AM Bedside Glucose 263 H 241 H Sodium Level 141 Potassium Level 8.6 #*H Chloride Level 125 H Carbon Dioxide 15 L Level Anion Gap 1 #L Blood Urea 8 Nitrogen Creatinine 0.37 L Est Glomerular > 60 Filtrat Rate mL/min Glucose Level 193 # Calcium Level 6.5 L Phosphorus Level 1.6 #L Magnesium Level 1.5 L Test 04/06/19 07:53 04/06/19 08:59 04/06/19 09:19 04/06/19 09:54 Bedside Glucose 206 129 122 Sodium Level 141 Potassium Level 3.0 #L Chloride Level 112 H Carbon Dioxide 22 Level Anion Gap 7 Blood Urea 8 Nitrogen Creatinine 0.41 L Est Glomerular > 60 Filtrat Rate mL/min Glucose Level 141 # Calcium Level 8.1 L Phosphorus Level 1.4 L Magnesium Level 1.9 Test 04/06/19 11:07 04/06/19 12:28 04/06/19 13:55 Bedside Glucose 185 269 H Sodium Level 139 Potassium Level 3.3 L Chloride Level 110 Carbon Dioxide 22 Level Anion Gap 7 Blood Urea 8 Nitrogen Creatinine 0.47 L Est Glomerular > 60 Filtrat Rate mL/min Glucose Level 178 Calcium Level 8.4 Phosphorus Level 2.0 L Magnesium Level 1.9 Medications Medication Current Medications Ondansetron HCl (Zofran Inj) 4 mg Q6H PRN IV NAUSEA AND/OR VOMITING; Start 04/06/19 at 01:30 Albuterol (Proventil 0.083% (Neb)) 2.5 mg Q4H RESP THERAPY NEB Last ad ministered on 04/06/19at 08:15; Admin Dose 2.5 MG; Start 04/06/19 at 05:00 Ipratropium [place] (Atrovent 0.02% (Neb)) 0.5 mg Q4H RESP THERAPY NEB Last administered on 04/06/19at 08:15; Admin Dose 0.5 MG; Start 04/06/19 at 05:00 Acetaminophen (Tylenol Liquid) 650 mg Q6H PRN PO PAIN LEVEL 1-3 OR FEVER; Start 04/06/19 at 01:30 Acetaminophen/ Hydrocodone Bitart ([place] (5/325)) 1 tab Q6H PRN PO PAIN LEVEL 4-6 Last administered on 04/06/19at 13:42; Admin Dose 1 TAB; Start 04/06/19 at 01:30 Docusate Sodium (Colace) 100 mg Q12H PRN PO CONSTIPATION; Start 04/06/19 at 01:30 Bisacodyl (Dulcolax) 5 mg DAILY PRN PO CONSTIPATION; Start 04/06/19 at 01:30 Enoxaparin Sodium (Lovenox) 40 mg DAILY SC Last administered on 04/06/19at 08:31; Admin Dose 40 MG; Start 04/06/19 at 09:00 Vancomycin HCl (Vanco Iv Per Pharmacy) VANCOMYCIN PER PHARMACY PER PROTOCOL XX ; Start 04/06/19 at 01:30 Lorazepam (Ativan) 1 mg Q4 PRN IV CONTROL WITHDRAWAL SYMPTOMS; Start 04/06/19 at 01:30 Vancomycin HCl 250 ml @ 125 mls/hr Q12H IVPB Last administered on 04/06/19at 15:51; Admin Dose 125 MLS/HR; Start 04/06/19 at 15:00 Miscellaneous Information (*Rx Drug Level Order Reminder*) VANCO TR ON 04/07/19 @ 400 ONCE ONCE XX ; Start 04/07/19 at 14:00; Stop 04/07/19 at 14:01 Loratadine (Claritin) 10 mg DAILY PO Last administered on 04/06/19at 08:33; Admin Dose 10 MG; Start 04/06/19 at 09:00 Tramadol HCl (Ultram) 50 mg Q4 PRN PO PAIN; Start 04/06/19 at 05:00 Hydroxyzine HCl (Atarax) 50 mg Q6H PRN PO ITCHING; Start 04/06/19 at 06:00 Insulin Aspart (Novolog Insulin Pen) NOVOLOG *MILD* ALGORITHM WITH MEALS BEDTIME SC Last administered on 04/06/19at 12:30; Admin Dose 4 UNIT; Start 04/06/19 at 07:35 Famotidine (Pepcid) 20 mg DAILY PO Last administered on 04/06/19at 08:31; Admin Dose 20 MG; Start 04/06/19 at 09:00 Miscellaneous Information 1 ea NOTE XX ; Start 04/06/19 at 08:00 Glucose (Glutose) 15 gm Q15M PRN PO DECREASED GLUCOSE; Start 04/06/19 at 08:00 Glucose (Glutose) 22.5 gm Q15M PRN PO DECREASED GLUCOSE; Start 04/06/19 at 08:00 Dextrose (D50w Syringe) 25 ml Q15M PRN IV DECREASED GLUCOSE; Start 04/06/19 at 08:00 Dextrose (D50w Syringe) 50 ml Q15M PRN IV DECREASED GLUCOSE; Start 04/06/19 at 08:00 Glucagon (Glucagen) 1 mg Q15M PRN IM DECREASED GLUCOSE; Start 04/06/19 at 08:00 Glucose (Glutose) 15 gm Q15M PRN BUCCAL DECREASED GLUCOSE; Start 04/06/19 at 08:00 JORGE CUEVAS MD Apr 06, 2019 16:53
--- NOTE | 2019-04-06 18:16 | CONS ---
Assessment/Plan Assessment/Plan Problems: (1) Type 2 diabetes mellitus with hyperglycemia Status: Chronic Comment: I believe would be okay to go ahead and given his metformin and also given mealtime nateglinide. I we would could use a single once a day dosage of basal insulin. I will get the basal insulin started tomorrow morning. In the meantime we need to make sure there is not an abscess or fluid collection in the leg. Defer this to the primary team and the orthopedist-surgeon customer acquisition manager Qualifiers: Qualified Codes: E11.65 - Type 2 diabetes mellitus with hyperglycemia Consultation Date/Type/Reason Admit Date/Time Date of Consultation: Apr 06, 2019 Type of Consult Endocrine Reason for Consultation Diabetes mellitus type 2 with hyperosmolar state and metabolic acidosis induced by right leg cellulitis with possible abscess Requesting Provider: SASHA KELLEY Date/Time of Note DATE: 04/06/19 TIME: 18:13 Hx of Present Illness Pleasant 48-year-old male with a 2-year history of diabetes mellitus type 2. At home history of metformin and NovoLog 70/30 insulin twice a day. He reports he does not have a regular physician to handle his diabetes. He became sick with a skin infection with presented to the emergency room with a sugar of 700 and a metabolic acidosis with a bicarb of 15. His anion gap closed rapidly. Now we are in the position to control his sugars and try and cope with a simple regimen for him. Constitutional: febrile (Recent only) Respiratory: no complaints Cardiovascular: no complaints Gastrointestinal: no complaints Genitourinary: no complaints Musculoskeletal: no complaints Skin: other (Right knee) Past Medical History Medical History: diabetes (Type II of 2 years duration) Home Meds Active Scripts Acetaminophen* (Tylenol*) 325 Mg Tablet, 2 TAB PO Q6 PRN for PAIN AND OR ELEVATED TEMP, #20 TAB Prov:LIAM ROWE MD 01/23/19 Acetaminophen* (Tylophen*) 500 Mg Capsule, 1 CAP PO Q6H PRN for PAIN AND OR ELEVATED TEMP, #20 CAP Prov:DHRUV DIAZ PA-C 01/20/19 Sulfamethoxazole/Trimethoprim* (Bactrim Ds* Tablet) 1 Each Tablet, 1 TAB PO BID, #14 TAB Prov:DHRUV DIAZ PA-C 01/20/19 Cephalexin* (Keflex*) 500 Mg Capsule, 500 MG PO TID for 7 Days, CAP Prov:DHRUV DIAZ PA-C 01/20/19 Sitagliptin* (Januvia*) 100 Mg Tablet, 100 MG PO DAILY, #30 TAB 3 Refills Prov:RENATO BURNS 09/15/18 Insulin Aspart* (Novolog Insulin Pen*) 100 Unit/Ml Soln, 6 UNIT SC WITH MEALS for 30 Days, #1 BOX 3 Refills alternative: humalog at same dose, directions, and refills Prov:RENATO BURNS 09/15/18 [Insulin Glargine] 100 UNITS/ML SOLN No Conflict Check, 16 UNITS SC DAILY@08 for 30 Days, #1 BOX 3 Refills alternative:wolfgang singletary tresiba. Same dose and direction with same refills Prov:RENATO BURNS 09/15/18 Loratadine* (Claritin*) 10 Mg Capsule, 10 MG PO DAILY, #15 CAP Prov:MARQUIS DUNN PA-C 07/14/18 Albuterol Sulfate* (Ventolin HFA*) 18 Gm Hfa.aer.ad, 2 PUFF INHALATION Q4H, #1 INHALER Prov:MARQUIS DUNN PA-C 07/14/18 Wool Alcoh/Min Oil/Radha/[place] (Eucerin Creme) 454 Gm Cream.gm., 454 GM TP BID, #1 TUB Prov:MARQUIS DUNN PA-C 07/14/18 Hydrocortisone* Topical (Hydrocortisone* Topical) 2.5%-28.3 Gm Cream..g., 1 APPLIC TOP BID, #1 TUB Prov:MARQUIS DUNN PA-C 07/14/18 Hydroxyzine Hcl* (Hydroxyzine Hcl*) 50 Mg Tablet, 50 MG PO Q6H PRN for ITCHING, #30 TAB Prov:SHAILA DALE 07/04/18 Reported Medications Famotidine* (Famotidine*) 20 Mg Tablet, 20 MG PO DAILY, #30 TAB 01/28/18 Tramadol Hcl* (Ultram*) 50 Mg Tablet, 50 MG PO Q4 PRN for PAIN, TAB 01/28/18 Medications Current Medications Ondansetron HCl (Zofran Inj) 4 mg Q6H PRN IV NAUSEA AND/OR VOMITING; Start 04/06/19 at 01:30 Albuterol (Proventil 0.083% (Neb)) 2.5 mg Q4H RESP THERAPY NEB Last administered on 04/06/19at 08:15; Admin Dose 2.5 MG; Start 04/06/19 at 05:00 Ipratropium [place] (Atrovent 0.02% (Neb)) 0.5 mg Q4H RESP THERAPY NEB Last administered on 04/06/19at 08:15; Admin Dose 0.5 MG; Start 04/06/19 at 05:00 Acetaminophen (Tylenol Liquid) 650 mg Q6H PRN PO PAIN LEVEL 1-3 OR FEVER; Start 04/06/19 at 01:30 Acetaminophen/ Hydrocodone Bitart ([place] (5/325)) 1 tab Q6H PRN PO PAIN LEVEL 4-6 Last administered on 04/06/19at 13:42; Admin Dose 1 TAB; Start 04/06/19 at 01:30 Docusate Sodium (Colace) 100 mg Q12H PRN PO CONSTIPATION; Start 04/06/19 at 01:30 Bisacodyl (Dulcolax) 5 mg DAILY PRN PO CONSTIPATION; Start 04/06/19 at 01:30 Enoxaparin Sodium (Lovenox) 40 mg DAILY SC Last administered on 04/06/19at 08:31; Admin Dose 40 MG; Start 04/06/19 at 09:00 Vancomycin HCl (Vanco Iv Per Pharmacy) VANCOMYCIN PER PHARMACY PER PROTOCOL XX ; Start 04/06/19 at 01:30 Lorazepam (Ativan) 1 mg Q4 PRN IV CONTROL WITHDRAWAL SYMPTOMS; Start 04/06/19 at 01:30 Vancomycin HCl 250 ml @ 125 mls/hr Q12H IVPB Last administered on 04/06/19at 15:51; Admin Dose 125 MLS/HR; Start 04/06/19 at 15:00 Miscellaneous Information (*Rx Drug Level Order Reminder*) VANCO TR ON 04/07/19 @ 400 ONCE ONCE XX ; Start 04/07/19 at 14:00; Stop 04/07/19 at 14:01 Loratadine (Claritin) 10 mg DAILY PO Last administered on 04/06/19at 08:33; Admin Dose 10 MG; Start 04/06/19 at 09:00 Tramadol HCl (Ultram) 50 mg Q4 PRN PO PAIN; Start 04/06/19 at 05:00 Hydroxyzine HCl (Atarax) 50 mg Q6H PRN PO ITCHING; Start 04/06/19 at 06:00 Insulin Aspart (Novolog Insulin Pen) NOVOLOG *MILD* ALGORITHM WITH MEALS BEDTIME SC Last administered on 04/06/19at 17:44; Admin Dose 1 UNIT; Start 04/06/19 at 07:35 Famotidine (Pepcid) 20 mg DAILY PO Last administered on 04/06/19at 08:31; Admin Dose 20 MG; Start 04/06/19 at 09:00 Miscellaneous Information 1 ea NOTE XX ; Start 04/06/19 at 08:00 Glucose (Glutose) 15 gm Q15M PRN PO DECREASED GLUCOSE; Start 04/06/19 at 08:00 Glucose (Glutose) 22.5 gm Q15M PRN PO DECREASED GLUCOSE; Start 04/06/19 at 08:00 Dextrose (D50w Syringe) 25 ml Q15M PRN IV DECREASED GLUCOSE; Start 04/06/19 at 08:00 Dextrose (D50w Syringe) 50 ml Q15M PRN IV DECREASED GLUCOSE; Start 04/06/19 at 08:00 Glucagon (Glucagen) 1 mg Q15M PRN IM DECREASED GLUCOSE; Start 04/06/19 at 08:00 Glucose (Glutose) 15 gm Q15M PRN BUCCAL DECREASED GLUCOSE; Start 04/06/19 at 08:00 Allergies: Coded Allergies: No Known Allergy (Unverified , 01/24/19) Past Surgical History Past Surgical Hx: no surgical history Family History Significant Family History: diabetes Social History Alcohol Use: occasionally Smoking Status: Never smoker Drug Use: none Exam/Review of Systems Exam Vitals Vital Signs Date Temp Pulse Resp B/P (MAP) Pulse Ox O2 O2 Flow FiO2 Time Delivery Rate 04/06/19 98.7 76 17 92/62 (72) 100 Room Air 14:00 04/06/19 21 08:16 Intake and Output 04/05/19 04/05/19 04/06/19 1515:00 23:00 07:00 IntakeIntake Total 519.38 ml OutputOutput Total 0 ml BalanceBalance 519.38 ml Constitutional: alert, oriented Neck: supple, non-tender Respiratory: clear to auscultation, normal air movement Cardiovascular: regular rate and rhythm, nl pulses Gastrointestinal: soft, nl liver, spleen, non-tender Results Result Diagram: 04/06/19 0442 04/06/19 1355 Results 24hrs Laboratory Tests Test 04/05/19 23:01 04/05/19 23:57 04/06/19 02:36 04/06/19 02:39 White Blood Count 12.2 #H Red Blood Count 4.19 L Hemoglobin 13.0 L Hematocrit 37.2 L Mean Corpuscular 88.8 Volume Mean Corpuscular 31.0 Hemoglobin Mean Corpuscular 34.9 Hemoglobin Concent Red Cell 12.6 Distribution Width Platelet Count 296 # Mean Platelet 10.8 H Volume Immature 0.500 H Granulocytes % Neutrophils % 87.0 H Lymphocytes % 6.1 L Monocytes % 5.3 Eosinophils % 0.7 Basophils % 0.4 Nucleated Red 0.0 Blood Cells % Immature 0.060 H Granulocytes # Neutrophils # 10.6 H Lymphocytes # 0.7 L Monocytes # 0.6 Eosinophils # 0.1 Basophils # 0.1 Nucleated Red 0.0 Blood Cells # Urine Color COLORLESS Urine Clarity CLEAR Urine pH 5.0 Urine Specific 1.027 [place] Urine Ketones 1+ H Urine Nitrite NEGATIVE Urine Bilirubin NEGATIVE Urine Urobilinogen NEGATIVE Urine Leukocyte NEGATIVE Esterase Urine Hemoglobin NEGATIVE Urine Glucose 3+ H Urine Total NEGATIVE Protein Sodium Level 130 L 135 Potassium Level 4.2 3.9 Chloride Level 98 106 Carbon Dioxide 15 L 17 L Level Anion Gap 17 H 12 Blood Urea 14 12 Nitrogen Creatinine 0.67 0.52 L Est Glomerular > 60 > 60 Filtrat Rate mL/min Glucose Level 750 *H 493 #*H Calcium Level 9.0 8.6 Total Bilirubin 0.4 Direct Bilirubin 0.00 Indirect Bilirubin 0.4 Aspartate Amino 9 L Transf (AST/SGOT) Alanine 21 Aminotransferase ( ALT/SGPT) Alkaline 232 H Phosphatase Total Protein 7.6 Albumin 3.9 Globulin 3.70 H Albumin/Globulin 1.05 Ratio Lipase 123 Hemoglobin A1c 12.7 H Urine Opiates Negative Screen Urine Barbiturates Negative Urine Amphetamines Negative Screen Urine Negative Benzodiazepines Screen Urine Cocaine Negative Screen Urine Cannabinoids Negative Ethyl Alcohol < 10.0 H Level Phosphorus Level 2.8 Magnesium Level 2.0 Bedside Glucose 450 *H Test 04/06/19 03:03 04/06/19 04:00 04/06/19 04:42 04/06/19 04:58 Blood Gas Specimen Blood venous Source Arterial Blood 04/06/2019 2:32:20 Date Drawn AM Arterial Blood Gas VENOUS LINE Puncture Site Damon Test N/A Venous Blood pH 7.353 Venous Blood pCO2 29.4 L (Temp Corrected) Venous Blood pO2 58.5 H (Temp Corrected) Venous Blood HCO3 16.0 L Venous Blood 90.7 H Oxygen Saturation Venous Blood Base -8.2 L Excess Venous Blood Total 13.0 Hemoglobin Venous Blood 90.3 Oxyhemoglobin Venous Blood 0 Methemoglobin Carboxyhemoglobin 0.4 Blood Gas 37.0 Temperature Blood Gas Modality ROOM AIR FiO2 21.0 Blood Gas Notified AA Whom Blood Gas Notified 04/06/2019 2:38:18 Time AM Bedside Glucose 343 H 191 White Blood Count 10.4 Red Blood Count 3.47 L Hemoglobin 10.8 L Hematocrit 30.4 L Mean Corpuscular 87.6 Volume Mean Corpuscular 31.1 Hemoglobin Mean Corpuscular 35.5 Hemoglobin Concent Red Cell 12.5 Distribution Width Platelet Count 258 Mean Platelet 10.7 H Volume Immature 0.600 H Granulocytes % Neutrophils % 81.0 H Lymphocytes % 10.9 L Monocytes % 6.0 Eosinophils % 0.9 Basophils % 0.6 Nucleated Red 0.0 Blood Cells % Immature 0.060 H Granulocytes # Neutrophils # 8.4 H Lymphocytes # 1.1 Monocytes # 0.6 Eosinophils # 0.1 Basophils # 0.1 Nucleated Red 0.0 Blood Cells # Uric Acid 2.4 L Test 04/06/19 05:03 04/06/19 05:54 04/06/19 06:54 04/06/19 06:55 Blood Gas Specimen Blood venous Source Arterial Blood 04/06/2019 5:02:00 Date Drawn AM Arterial Blood Gas VENOUS LINE Puncture Site Damon Test N/A Venous Blood pH 7.360 Venous Blood pCO2 35.7 (Temp Corrected) Venous Blood pO2 35.9 H (Temp Corrected) Venous Blood HCO3 19.7 L Venous Blood 72.8 Oxygen Saturation Venous Blood Base -5.0 Excess Venous Blood Total 12.9 Hemoglobin Venous Blood 72.3 Oxyhemoglobin Venous Blood 0 Methemoglobin Carboxyhemoglobin 0.7 Blood Gas 37.0 Temperature Blood Gas Modality ROOM AIR FiO2 21.0 Blood Gas Notified Whom Blood Gas Notified 04/06/2019 5:18:00 Time AM Bedside Glucose 263 H 241 H Sodium Level 141 Potassium Level 8.6 #*H Chloride Level 125 H Carbon Dioxide 15 L Level Anion Gap 1 #L Blood Urea 8 Nitrogen Creatinine 0.37 L Est Glomerular > 60 Filtrat Rate mL/min Glucose Level 193 # Calcium Level 6.5 L Phosphorus Level 1.6 #L Magnesium Level 1.5 L Test 04/06/19 07:53 04/06/19 08:59 04/06/19 09:19 04/06/19 09:54 Bedside Glucose 206 129 122 Sodium Level 141 Potassium Level 3.0 #L Chloride Level 112 H Carbon Dioxide 22 Level Anion Gap 7 Blood Urea 8 Nitrogen Creatinine 0.41 L Est Glomerular > 60 Filtrat Rate mL/min Glucose Level 141 # Calcium Level 8.1 L Phosphorus Level 1.4 L Magnesium Level 1.9 Test 04/06/19 11:07 04/06/19 12:28 04/06/19 13:55 04/06/19 17:41 Bedside Glucose 185 269 H 152 Sodium Level 139 Potassium Level 3.3 L Chloride Level 110 Carbon Dioxide 22 Level Anion Gap 7 Blood Urea 8 Nitrogen Creatinine 0.47 L Est Glomerular > 60 Filtrat Rate mL/min Glucose Level 178 Calcium Level 8.4 Phosphorus Level 2.0 L Magnesium Level 1.9 Medications Medication Current Medications Ondansetron HCl (Zofran Inj) 4 mg Q6H PRN IV NAUSEA AND/OR VOMITING; Start 04/06/19 at 01:30 Albuterol (Proventil 0.083% (Neb)) 2.5 mg Q4H RESP THERAPY NEB Last administered on 04/06/19at 08:15; Admin Dose 2.5 MG; Start 04/06/19 at 05:00 Ipratropium [place] (Atrovent 0.02% (Neb)) 0.5 mg Q4H RESP THERAPY NEB Last administered on 04/06/19at 08:15; Admin Dose 0.5 MG; Start 04/06/19 at 05:00 Acetaminophen (Tylenol Liquid) 650 mg Q6H PRN PO PAIN LEVEL 1-3 OR FEVER; Start 04/06/19 at 01:30 Acetaminophen/ Hydrocodone Bitart ([place] (5/325)) 1 tab Q6H PRN PO PAIN LEVEL 4-6 Last administered on 04/06/19at 13:42; Admin Dose 1 TAB; Start 04/06/19 at 01:30 Docusate Sodium (Colace) 100 mg Q12H PRN PO CONSTIPATION; Start 04/06/19 at 01:30 Bisacodyl (Dulcolax) 5 mg DAILY PRN PO CONSTIPATION; Start 04/06/19 at 01:30 Enoxaparin Sodium (Lovenox) 40 mg DAILY SC Last administered on 04/06/19at 08:31; Admin Dose 40 MG; Start 04/06/19 at 09:00 Vancomycin HCl (Vanco Iv Per Pharmacy) VANCOMYCIN PER PHARMACY PER PROTOCOL XX ; Start 04/06/19 at 01:30 Lorazepam (Ativan) 1 mg Q4 PRN IV CONTROL WITHDRAWAL SYMPTOMS; Start 04/06/19 at 01:30 Vancomycin HCl 250 ml @ 125 mls/hr Q12H IVPB Last administered on 04/06/19at 15:51; Admin Dose 125 MLS/HR; Start 04/06/19 at 15:00 Miscellaneous Information (*Rx Drug Level Order Reminder*) VANCO TR ON 04/07/19 @ 400 ONCE ONCE XX ; Start 04/07/19 at 14:00; Stop 04/07/19 at 14:01 Loratadine (Claritin) 10 mg DAILY PO Last administered on 04/06/19at 08:33; Admin Dose 10 MG; Start 04/06/19 at 09:00 Tramadol HCl (Ultram) 50 mg Q4 PRN PO PAIN; Start 04/06/19 at 05:00 Hydroxyzine HCl (Atarax) 50 mg Q6H PRN PO ITCHING; Start 04/06/19 at 06:00 Insulin Aspart (Novolog Insulin Pen) NOVOLOG *MILD* ALGORITHM WITH MEALS BEDTIME SC Last administered on 04/06/19at 17:44; Admin Dose 1 UNIT; Start 04/06/19 at 07:35 Famotidine (Pepcid) 20 mg DAILY PO Last administered on 04/06/19at 08:31; Admin Dose 20 MG; Start 04/06/19 at 09:00 Miscellaneous Information 1 ea NOTE XX ; Start 04/06/19 at 08:00 Glucose (Glutose) 15 gm Q15M PRN PO DECREASED GLUCOSE; Start 04/06/19 at 08:00 Glucose (Glutose) 22.5 gm Q15M PRN PO DECREASED GLUCOSE; Start 04/06/19 at 08:00 Dextrose (D50w Syringe) 25 ml Q15M PRN IV DECREASED GLUCOSE; Start 04/06/19 at 08:00 Dextrose (D50w Syringe) 50 ml Q15M PRN IV DECREASED GLUCOSE; Start 04/06/19 at 08:00 Glucagon (Glucagen) 1 mg Q15M PRN IM DECREASED GLUCOSE; Start 04/06/19 at 08:00 Glucose (Glutose) 15 gm Q15M PRN BUCCAL DECREASED GLUCOSE; Start 04/06/19 at 08:00 DEIDRA MORTENSEN MD Apr 06, 2019 18:16
[2019-04-06] MEDS: metFORMIN 500 MG TAB PO SCH (18:44)
[2019-04-06] MEDS ORDERED: DEXTROSE 5%-0.45% NACL 1,000 ML IV SCH (20:30)
--- NOTE | 2019-04-06 21:24 | CONS ---
Assessment/Plan Assessment/Plan Hospital Course (Demo Recall) 40-year-old male who was admitted for DKA who is now stable. He was found to have an abscess over the distal thigh. Based on physical examination the knee joint itself is not involved. Given the size and location of the abscess it would be best to do this in the operating room. I reviewed the benefits and risks with the patient. He understood these benefits and risks which include but not limited to complications of anesthesia, medical complications, neurovascular injury, need for repeat irrigation debridement and surgeries. We will plan for surgery tomorrow afternoon. N.p.o. at midnight Continue IV antibiotics Pain control Weight-bear as tolerated Consultation Date/Type/Reason Admit Date/Time Date of Consultation: Apr 06, 2019 Reason for Consultation Right thigh abscess Date/Time of Note DATE: 04/06/19 TIME: 21:20 Hx of Present Illness 48-year-old male history of diabetes presented to [facility] in [facility]. He was admitted to the ICU. He was found to have an abscess over his right distal thigh and knee. The patient states that he has had pain there for 5 days. States it was getting worse prior to his presentation to the hospital. The patient is now stable and transferred to the floor. He is on IV antibiotics. Patient states he has had abscesses before. States he has numbness and tingling in his feet. Past Medical History Medical History: diabetes (Type II of 2 years duration) Home Meds Active Scripts Acetaminophen* (Tylenol*) 325 Mg Tablet, 2 TAB PO Q6 PRN for PAIN AND OR ELEVATED TEMP, #20 TAB Prov:LIAM ROWE MD 01/23/19 Acetaminophen* (Tylophen*) 500 Mg Capsule, 1 CAP PO Q6H PRN for PAIN AND OR ELEVATED TEMP, #20 CAP Prov:DHRUV DIAZ-C 01/20/19 Sulfamethoxazole/Trimethoprim* (Bactrim Ds* Tablet) 1 Each Tablet, 1 TAB PO BID, #14 TAB Prov:DHRUV DIAZ-C 01/20/19 Cephalexin* (Keflex*) 500 Mg Capsule, 500 MG PO TID for 7 Days, CAP Prov:DHRUV DIAZ PA-C 01/20/19 Sitagliptin* (Januvia*) 100 Mg Tablet, 100 MG PO DAILY, #30 TAB 3 Refills Prov:RENATO BURNS J 09/15/18 Insulin Aspart* (Novolog Insulin Pen*) 100 Unit/Ml Soln, 6 UNIT SC WITH MEALS for 30 Days, #1 BOX 3 Refills alternative: humalog at same dose, directions, and refills Prov:RENATO BURNS J 09/15/18 [Insulin Glargine] 100 UNITS/ML SOLN No Conflict Check, 16 UNITS SC DAILY@08 for 30 Days, #1 BOX 3 Refills alternative:wolfgang singletary tresiba. Same dose and direction with same refills Prov:KATYRENATO 09/15/18 Loratadine* (Claritin*) 10 Mg Capsule, 10 MG PO DAILY, #15 CAP Prov:MARQUIS DUNN PA-C 07/14/18 Albuterol Sulfate* (Ventolin HFA*) 18 Gm Hfa.aer.ad, 2 PUFF INHALATION Q4H, #1 INHALER Prov:MARQUIS DUNN PA-C 07/14/18 Wool Alcoh/Min Oil/Radha/[place] (Eucerin Creme) 454 Gm Cream.gm., 454 GM TP BID, #1 TUB Prov:MARQUIS DUNN PA-C 07/14/18 Hydrocortisone* Topical (Hydrocortisone* Topical) 2.5%-28.3 Gm Cream..g., 1 APPLIC TOP BID, #1 TUB Prov:MARQUIS DUNN PA-C 07/14/18 Hydroxyzine Hcl* (Hydroxyzine Hcl*) 50 Mg Tablet, 50 MG PO Q6H PRN for ITCHING, #30 TAB Prov:SHAILA DALE 07/04/18 Reported Medications Famotidine* (Famotidine*) 20 Mg Tablet, 20 MG PO DAILY, #30 TAB 01/28/18 Tramadol Hcl* (Ultram*) 50 Mg Tablet, 50 MG PO Q4 PRN for PAIN, TAB 01/28/18 Medications Current Medications Ondansetron HCl (Zofran Inj) 4 mg Q6H PRN IV NAUSEA AND/OR VOMITING; Start 04/06/19 at 01:30 Albuterol (Proventil 0.083% (Neb)) 2.5 mg Q4H RESP THERAPY NEB Last administered on 04/06/19at 20:55; Admin Dose 2.5 MG; Start 04/06/19 at 05:00 Ipratropium [place] (Atrovent 0.02% (Neb)) 0.5 mg Q4H RESP THERAPY NEB Last administered on 04/06/19at 20:56; Admin Dose 0.5 MG; Start 04/06/19 at 05:00 Acetaminophen (Tylenol Liquid) 650 mg Q6H PRN PO PAIN LEVEL 1-3 OR FEVER; Start 04/06/19 at 01:30 Acetaminophen/ Hydrocodone Bitart ([place] (5/325)) 1 tab Q6H PRN PO PAIN LEVEL 4-6 Last administered on 04/06/19at 13:42; Admin Dose 1 TAB; Start 04/06/19 at 01:30 Docusate Sodium (Colace) 100 mg Q12H PRN PO CONSTIPATION; Start 04/06/19 at 01:30 Bisacodyl (Dulcolax) 5 mg DAILY PRN PO CONSTIPATION; Start 04/06/19 at 01:30 Enoxaparin Sodium (Lovenox) 40 mg DAILY SC Last administered on 04/06/19at 08:31; Admin Dose 40 MG; Start 04/06/19 at 09:00 Vancomycin HCl (Vanco Iv Per Pharmacy) VANCOMYCIN PER PHARMACY PER PROTOCOL XX ; Start 04/06/19 at 01:30 Lorazepam (Ativan) 1 mg Q4 PRN IV CONTROL WITHDRAWAL SYMPTOMS; Start 04/06/19 at 01:30 Vancomycin HCl 250 ml @ 125 mls/hr Q12H IVPB Last administered on 04/06/19at 15: 51; Admin Dose 125 MLS/HR; Start 04/06/19 at 15:00 Miscellaneous Information (*Rx Drug Level Order Reminder*) VANCO TR ON 04/07/19 @ 400 ONCE ONCE XX ; Start 04/07/19 at 14:00; Stop 04/07/19 at 14:01 Loratadine (Claritin) 10 mg DAILY PO Last administered on 04/06/19at 08:33; Admin Dose 10 MG; Start 04/06/19 at 09:00 Tramadol HCl (Ultram) 50 mg Q4 PRN PO PAIN; Start 04/06/19 at 05:00 Hydroxyzine HCl (Atarax) 50 mg Q6H PRN PO ITCHING; Start 04/06/19 at 06:00 Famotidine (Pepcid) 20 mg DAILY PO Last administered on 04/06/19at 08:31; Admin Dose 20 MG; Start 04/06/19 at 09:00 Miscellaneous Information 1 ea NOTE XX ; Start 04/06/19 at 08:00 Glucose (Glutose) 15 gm Q15M PRN PO DECREASED GLUCOSE; Start 04/06/19 at 08:00 Glucose (Glutose) 22.5 gm Q15M PRN PO DECREASED GLUCOSE; Start 04/06/19 at 08:00 Dextrose (D50w Syringe) 25 ml Q15M PRN IV DECREASED GLUCOSE; Start 04/06/19 at 08:00 Dextrose (D50w Syringe) 50 ml Q15M PRN IV DECREASED GLUCOSE; Start 04/06/19 at 08:00 Glucagon (Glucagen) 1 mg Q15M PRN IM DECREASED GLUCOSE; Start 04/06/19 at 08:00 Glucose (Glutose) 15 gm Q15M PRN BUCCAL DECREASED GLUCOSE; Start 04/06/19 at 08:00 Metformin HCl (Glucophage) 500 mg BID WITH MEALS PO Last administered on 04/06/19at 18:44; Admin Dose 500 MG; Start 04/06/19 at 18:30 Diagnostic Test (Pha) (Accu-Chek) 1 ea AC MEALS AND BEDTIME XX ; Start 04/06/19 at 21:00 Nateglinide (Starlix) 60 mg AC MEALS PO ; Start 04/07/19 at 07:30 Diagnostic Test (Pha) (Accu-Chek) 1 ea 02 XX ; Start 04/07/19 at 02:00 Insulin Aspart (Novolog Insulin Pen) NOVOLOG *MILD* ALGORI... Q4 SC ; Start 04/06/19 at 21:00 Dextrose/Sodium Chloride 1,000 ml @ 80 mls/hr [id number] IV ; Start 04/07/19 at 00:00 Allergies: Coded Allergies: No Known Allergy (Unverified , 01/24/19) Past Surgical History Past Surgical Hx: no surgical history Social History Alcohol Use: occasionally Smoking Status: Never smoker Drug Use: none Exam/Review of Systems Exam Vitals Vital Signs Date Temp Pulse Resp B/P (MAP) Pulse Ox O2 O2 Flow FiO2 Time Delivery Rate 04/06/19 70 16 97 21 20:56 04/06/19 98.1 129/79 Room Air 19:58 (96) Intake and Output 04/05/19 04/05/19 04/06/19 1515:00 23:00 07:00 IntakeIntake Total 519.38 ml OutputOutput Total 0 ml BalanceBalance 519.38 ml Exam MUSCULOSKELETAL: Right lower extremity: Skin is intact. There is swelling and fluctuance over the anterior distal thigh with erythema, warmth and tenderness to palpation. The abscess appears to be subcutaneous and superficial to the distal quadriceps muscle and tendon. The patient is nontender around the joint lines. There is no erythema around the joint. There is only a mild effusion of the joint. Patient has range of motion 3-70 degrees with minimal pain. No pain with axial loading. Decreased sensation to light touch in a sural, saphenous, deep peroneal, superficial peroneal, medial and lateral plantar nerve distribution. Motor is intact, patient able to dorsiflex and plantarflex ankle and extend and flex great toe. Dorsalis Pedis pulse +2, Brisk capillary refill. Compartments are soft. Calves non-tender to palpation bilaterally. Results Result Diagram: 04/06/19 0442 04/06/19 1355 Results 24hrs Laboratory Tests Test 04/05/19 23:01 04/05/19 23:57 04/06/19 02:36 04/06/19 02:39 White Blood Count 12.2 #H Red Blood Count 4.19 L Hemoglobin 13.0 L Hematocrit 37.2 L Mean Corpuscular 88.8 Volume Mean Corpuscular 31.0 Hemoglobin Mean Corpuscular 34.9 Hemoglobin Concent Red Cell 12.6 Distribution Width Platelet Count 296 # Mean Platelet 10.8 H Volume Immature 0.500 H Granulocytes % Neutrophils % 87.0 H Lymphocytes % 6.1 L Monocytes % 5.3 Eosinophils % 0.7 Basophils % 0.4 Nucleated Red 0.0 Blood Cells % Immature 0.060 H Granulocytes # Neutrophils # 10.6 H Lymphocytes # 0.7 L Monocytes # 0.6 Eosinophils # 0.1 Basophils # 0.1 Nucleated Red 0.0 Blood Cells # Urine Color COLORLESS Urine Clarity CLEAR Urine pH 5.0 Urine Specific 1.027 [place] Urine Ketones 1+ H Urine Nitrite NEGATIVE Urine Bilirubin NEGATIVE Urine Urobilinogen NEGATIVE Urine Leukocyte NEGATIVE Esterase Urine Hemoglobin NEGATIVE Urine Glucose 3+ H Urine Total NEGATIVE Protein Sodium Level 130 L 135 Potassium Level 4.2 3.9 Chloride Level 98 106 Carbon Dioxide 15 L 17 L Level Anion Gap 17 H 12 Blood Urea 14 12 Nitrogen Creatinine 0.67 0.52 L Est Glomerular > 60 > 60 Filtrat Rate mL/min Glucose Level 750 *H 493 #*H Calcium Level 9.0 8.6 Total Bilirubin 0.4 Direct Bilirubin 0.00 Indirect Bilirubin 0.4 Aspartate Amino 9 L Transf (AST/SGOT) Alanine 21 Aminotransferase ( ALT/SGPT) Alkaline 232 H Phosphatase Total Protein 7.6 Albumin 3.9 Globulin 3.70 H Albumin/Globulin 1.05 Ratio Lipase 123 Hemoglobin A1c 12.7 H Urine Opiates Negative Screen Urine Barbiturates Negative Urine Amphetamines Negative Screen Urine Negative Benzodiazepines Screen Urine Cocaine Negative Screen Urine Cannabinoids Negative Ethyl Alcohol < 10.0 H Level Phosphorus Level 2.8 Magnesium Level 2.0 Bedside Glucose 450 *H Test 04/06/19 03:03 04/06/19 04:00 04/06/19 04:42 04/06/19 04:58 Blood Gas Specimen Blood venous Source Arterial Blood 04/06/2019 2:32:20 Date Drawn AM Arterial Blood Gas VENOUS LINE Puncture Site Damon Test N/A Venous Blood pH 7.353 Venous Blood pCO2 29.4 L (Temp Corrected) Venous Blood pO2 58.5 H (Temp Corrected) Venous Blood HCO3 16.0 L Venous Blood 90.7 H Oxygen Saturation Venous Blood Base -8.2 L Excess Venous Blood Total 13.0 Hemoglobin Venous Blood 90.3 Oxyhemoglobin Venous Blood 0 Methemoglobin Carboxyhemoglobin 0.4 Blood Gas 37.0 Temperature Blood Gas Modality ROOM AIR FiO2 21.0 Blood Gas Notified AA Whom Blood Gas Notified 04/06/2019 2:38:18 Time AM Bedside Glucose 343 H 191 White Blood Count 10.4 Red Blood Count 3.47 L Hemoglobin 10.8 L Hematocrit 30.4 L Mean Corpuscular 87.6 Volume Mean Corpuscular 31.1 Hemoglobin Mean Corpuscular 35.5 Hemoglobin Concent Red Cell 12.5 Distribution Width Platelet Count 258 Mean Platelet 10.7 H Volume Immature 0.600 H Granulocytes % Neutrophils % 81.0 H Lymphocytes % 10.9 L Monocytes % 6.0 Eosinophils % 0.9 Basophils % 0.6 Nucleated Red 0.0 Blood Cells % Immature 0.060 H Granulocytes # Neutrophils # 8.4 H Lymphocytes # 1.1 Monocytes # 0.6 Eosinophils # 0.1 Basophils # 0.1 Nucleated Red 0.0 Blood Cells # Uric Acid 2.4 L Test 04/06/19 05:03 04/06/19 05:54 04/06/19 06:51 04/06/19 06:54 Blood Gas Specimen Blood venous Source Arterial Blood 04/06/2019 5:02:00 Date Drawn AM Arterial Blood Gas VENOUS LINE Puncture Site Damon Test N/A Venous Blood pH 7.360 Venous Blood pCO2 35.7 (Temp Corrected) Venous Blood pO2 35.9 H (Temp Corrected) Venous Blood HCO3 19.7 L Venous Blood 72.8 Oxygen Saturation Venous Blood Base -5.0 Excess Venous Blood Total 12.9 Hemoglobin Venous Blood 72.3 Oxyhemoglobin Venous Blood 0 Methemoglobin Carboxyhemoglobin 0.7 Blood Gas 37.0 Temperature Blood Gas Modality ROOM AIR FiO2 21.0 Blood Gas Notified Whom Blood Gas Notified 04/06/2019 5:18:00 Time AM Bedside Glucose 263 H 241 H Thyroid 2.180 Stimulating Hormone (TSH) Hepatitis A POSITIVE H Antibody Total Hepatitis B NEGATIVE Surface Antigen Hepatitis B POSITIVE H Surface Antibody Hepatitis C NEGATIVE Antibody Test 04/06/19 06:55 04/06/19 07:53 04/06/19 08:59 04/06/19 09:19 Sodium Level 141 141 Potassium Level 8.6 #*H 3.0 #L Chloride Level 125 H 112 H Carbon Dioxide 15 L 22 Level Anion Gap 1 #L 7 Blood Urea 8 8 Nitrogen Creatinine 0.37 L 0.41 L Est Glomerular > 60 > 60 Filtrat Rate mL/min Glucose Level 193 # 141 # Calcium Level 6.5 L 8.1 L Phosphorus Level 1.6 #L 1.4 L Magnesium Level 1.5 L 1.9 Bedside Glucose 206 129 Test 04/06/19 09:54 04/06/19 11:07 04/06/19 12:28 04/06/19 13:55 Bedside Glucose 122 185 269 H Sodium Level 139 Potassium Level 3.3 L Chloride Level 110 Carbon Dioxide 22 Level Anion Gap 7 Blood Urea 8 Nitrogen Creatinine 0.47 L Est Glomerular > 60 Filtrat Rate mL/min Glucose Level 178 Calcium Level 8.4 Phosphorus Level 2.0 L Magnesium Level 1.9 Test 04/06/19 17:41 Bedside Glucose 152 Medications Medication Current Medications Ondansetron HCl (Zofran Inj) 4 mg Q6H PRN IV NAUSEA AND/OR VOMITING; Start 04/06/19 at 01:30 Albuterol (Proventil 0.083% (Neb)) 2.5 mg Q4H RESP THERAPY NEB Last administered on 04/06/19at 20:55; Admin Dose 2.5 MG; Start 04/06/19 at 05:00 Ipratropium [place] (Atrovent 0.02% (Neb)) 0.5 mg Q4H RESP THERAPY NEB Last administered on 04/06/19at 20:56; Admin Dose 0.5 MG; Start 04/06/19 at 05:00 Acetaminophen (Tylenol Liquid) 650 mg Q6H PRN PO PAIN LEVEL 1-3 OR FEVER; Start 04/06/19 at 01:30 Acetaminophen/ Hydrocodone Bitart ([place] (5/325)) 1 tab Q6H PRN PO PAIN LEVEL 4-6 Last administered on 04/06/19at 13:42; Admin Dose 1 TAB; Start 04/06/19 at 01:30 Docusate Sodium (Colace) 100 mg Q12H PRN PO CONSTIPATION; Start 04/06/19 at 01:30 Bisacodyl (Dulcolax) 5 mg DAILY PRN PO CONSTIPATION; Start 04/06/19 at 01:30 Enoxaparin Sodium (Lovenox) 40 mg DAILY SC Last administered on 04/06/19at 08:31; Admin Dose 40 MG; Start 04/06/19 at 09:00 Vancomycin HCl (Vanco Iv Per Pharmacy) VANCOMYCIN PER PHARMACY PER PROTOCOL XX ; Start 04/06/19 at 01:30 Lorazepam (Ativan) 1 mg Q4 PRN IV CONTROL WITHDRAWAL SYMPTOMS; Start 04/06/19 at 01:30 Vancomycin HCl 250 ml @ 125 mls/hr Q12H IVPB Last administered on 04/06/19at 15:51; Admin Dose 125 MLS/HR; Start 04/06/19 at 15:00 Miscellaneous Information (*Rx Drug Level Order Reminder*) VANCO TR ON 04/07/19 @ 400 ONCE ONCE XX ; Start 04/07/19 at 14:00; Stop 04/07/19 at 14:01 Loratadine (Claritin) 10 mg DAILY PO Last administered on 04/06/19at 08:33; Admin Dose 10 MG; Start 04/06/19 at 09:00 Tramadol HCl (Ultram) 50 mg Q4 PRN PO PAIN; Start 04/06/19 at 05:00 Hydroxyzine HCl (Atarax) 50 mg Q6H PRN PO ITCHING; Start 04/06/19 at 06:00 Famotidine (Pepcid) 20 mg DAILY PO Last administered on 04/06/19at 08:31; Admin Dose 20 MG; Start 04/06/19 at 09:00 Miscellaneous Information 1 ea NOTE XX ; Start 04/06/19 at 08:00 Glucose (Glutose) 15 gm Q15M PRN PO DECREASED GLUCOSE; Start 04/06/19 at 08:00 Glucose (Glutose) 22.5 gm Q15M PRN PO DECREASED GLUCOSE; Start 04/06/19 at 08:00 Dextrose (D50w Syringe) 25 ml Q15M PRN IV DECREASED GLUCOSE; Start 04/06/19 at 08:00 Dextrose (D50w Syringe) 50 ml Q15M PRN IV DECREASED GLUCOSE; Start 04/06/19 at 08:00 Glucagon (Glucagen) 1 mg Q15M PRN IM DECREASED GLUCOSE; Start 04/06/19 at 08:00 Glucose (Glutose) 15 gm Q15M PRN BUCCAL DECREASED GLUCOSE; Start 04/06/19 at 08:00 Metformin HCl (Glucophage) 500 mg BID WITH MEALS PO Last administered on 04/06/19at 18:44; Admin Dose 500 MG; Start 04/06/19 at 18:30 Diagnostic Test (Pha) (Accu-Chek) 1 ea AC MEALS AND BEDTIME XX ; Start 04/06/19 at 21:00 Nateglinide (Starlix) 60 mg AC MEALS PO ; Start 04/07/19 at 07:30 Diagnostic Test (Pha) (Accu-Chek) 1 ea 02 XX ; Start 04/07/19 at 02:00 Insulin Aspart (Novolog Insulin Pen) NOVOLOG *MILD* ALGORI... Q4 SC ; Start 04/06/19 at 21:00 Dextrose/Sodium Chloride 1,000 ml @ 80 mls/hr [id number] IV ; Start 04/07/19 at 00:00 MANPREET LIZARRAGA MD Apr 06, 2019 21:24
[2019-04-07] VITALS (16 sets, daily range): BP systolic 96–132; BP diastolic 56–81; PULSE 68–96; RESP 14–25
[2019-04-07] MEDS: DEXTROSE 5%-0.45% NACL 1,000 ML IV SCH ×3 (00:33→15:08)
[2019-04-07] MEDS: INSULIN ASPART [NOVOLOG] 3 ML PEN SC SCH ×6 (00:34→20:49)
[2019-04-07] MEDS: IPRATROPIUM (NEB) 0.5 MG/2.5 ML AMP NEB SCH ×6 (01:51→20:49)
[2019-04-07] MEDS: ALBUTEROL 0.083% (NEB) 2.5 MG/3 ML AMP NEB SCH ×6 (01:51→20:49)
[2019-04-07] MEDS ORDERED: ACCU-CHEK XX SCH (02:00)
[2019-04-07] MEDS: VANCOMYCIN 1 GM 250 ML IVPB SCH ×3 (02:59→22:54)
[2019-04-07] MEDS ORDERED: POTASSIUM CHLORIDE (SR) 20 MEQ TAB PO ONE (03:30)
[2019-04-07] MEDS: HYDROCODONE/APAP (5/325) TAB PO PRN (06:44)
[2019-04-07] MEDS: ACCU-CHEK XX SCH ×4 (07:30→20:49)
[2019-04-07] MEDS: NATEGLINIDE 60 MG TAB PO SCH ×2 (07:30→11:21)
[2019-04-07] MEDS: metFORMIN 500 MG TAB PO SCH (07:57)
[2019-04-07] MEDS: ENOXAPARIN 40 MG/0.4 ML SYG SC SCH (08:58)
[2019-04-07] MEDS: FAMOTIDINE 20 MG TAB PO SCH (09:13)
[2019-04-07] MEDS: LORATADINE 10 MG TAB PO SCH (09:13)
[2019-04-07] MEDS: traMADol 50 MG TAB PO PRN (11:18)
[2019-04-07] MEDS ORDERED: morphine 2 MG INJ IV STA (12:37)
--- NOTE | 2019-04-07 14:10 | PN ---
Date/Time of Note Date/Time of Note DATE: 04/07/19 TIME: 14:08 Assessment/Plan VTE Prophylaxis Risk score (from Ns)>0 risk: 1 SCD applied (from Nsg): Yes Pharmacological prophylaxis: heparin Lines/Catheters IV Catheter Type (from Nrsg): Saline Lock Assessment/Plan Hospital Course AOx3 RRR CTAB R leg with area of rubor, dolor, calor above knee with induration A/P: 48 yo male wtih DKA and likely abscess of leg DKA: - Resolved DMII: - Basal/bolus insulin - metformin added Knee abscess - To OR today with Dr Stevenson - Continue vanco/zosyn for now RAULITO: - Resolved with fluids Result Diagram: 04/07/19 0635 04/07/19 0954 Results 24hrs Laboratory Tests Test 04/06/19 17:41 04/06/19 21:04 04/06/19 21:22 04/07/19 00:31 Bedside Glucose 152 298 H 216 Sodium Level 136 Potassium Level 3.7 Chloride Level 105 Carbon Dioxide Level 20 L Anion Gap 11 Blood Urea Nitrogen 7 Creatinine 0.57 L Est Glomerular > 60 Filtrat Rate mL/min Glucose Level 338 #H Calcium Level 8.3 L Phosphorus Level 2.4 L Magnesium Level 1.9 Test 04/07/19 00:43 04/07/19 05:16 04/07/19 06:35 04/07/19 09:10 Sodium Level 135 139 Potassium Level 3.0 L 3.5 Chloride Level 105 104 Carbon Dioxide Level 22 20 L Anion Gap 8 15 #H Blood Urea Nitrogen 7 4 L Creatinine 0.43 L 0.50 L Est Glomerular > 60 > 60 Filtrat Rate mL/min Glucose Level 218 # 230 H Calcium Level 8.3 L 8.6 Phosphorus Level 2.6 2.8 Magnesium Level 1.8 1.8 Bedside Glucose 176 235 H White Blood Count 10.2 Red Blood Count 4.28 #L Hemoglobin 13.2 #L Hematocrit 38.0 #L Mean Corpuscular 88.8 Volume Mean Corpuscular 30.8 Hemoglobin Mean Corpuscular 34.7 Hemoglobin Concent Red Cell 12.9 Distribution Width Platelet Count 324 # Mean Platelet Volume 10.9 H Immature 0.700 H Granulocytes % Neutrophils % 72.4 Lymphocytes % 18.3 Monocytes % 6.6 Eosinophils % 1.3 Basophils % 0.7 Nucleated Red Blood 0.0 Cells % Immature 0.070 H Granulocytes # Neutrophils # 7.4 Lymphocytes # 1.9 Monocytes # 0.7 Eosinophils # 0.1 Basophils # 0.1 Nucleated Red Blood 0.0 Cells # Test 04/07/19 09:54 04/07/19 13:14 Sodium Level 138 Potassium Level 3.6 Chloride Level 106 Carbon Dioxide Level 20 L Anion Gap 12 Blood Urea Nitrogen 4 L Creatinine 0.48 L Est Glomerular > 60 Filtrat Rate mL/min Glucose Level 241 H Calcium Level 8.3 L Phosphorus Level 2.9 Magnesium Level 1.8 Bedside Glucose 240 H Subjective 24 Hr Interval Summary Free Text/Dictation Continued pain in his leg Awaiting surgery DKA resolved Exam/Review of Systems Exam Vitals Vital Signs Date Temp Pulse Resp B/P (MAP) Pulse Ox O2 O2 Flow FiO2 Time Delivery Rate 04/07/19 69 18 99 21 13:54 04/07/19 106/65 09:18 (79) 04/07/19 98.2 Room Air 08:34 Intake and Output 04/06/19 04/06/19 04/07/19 1414:59 22:59 06:59 IntakeIntake Total 256.46 ml 650 ml 1000 ml OutputOutput Total 200 ml 600 ml BalanceBalance 256.46 ml 450 ml 400 ml Results Results 24hrs Laboratory Tests Test 04/06/19 17:41 04/06/19 21:04 04/06/19 21:22 04/07/19 00:31 Bedside Glucose 152 298 H 216 Sodium Level 136 Potassium Level 3.7 Chloride Level 105 Carbon Dioxide Level 20 L Anion Gap 11 Blood Urea Nitrogen 7 Creatinine 0.57 L Est Glomerular > 60 Filtrat Rate mL/min Glucose Level 338 #H Calcium Level 8.3 L Phosphorus Level 2.4 L Magnesium Level 1.9 Test 04/07/19 00:43 04/07/19 05:16 04/07/19 06:35 04/07/19 09:10 Sodium Level 135 139 Potassium Level 3.0 L 3.5 Chloride Level 105 104 Carbon Dioxide Level 22 20 L Anion Gap 8 15 #H Blood Urea Nitrogen 7 4 L Creatinine 0.43 L 0.50 L Est Glomerular > 60 > 60 Filtrat Rate mL/min Glucose Level 218 # 230 H Calcium Level 8.3 L 8.6 Phosphorus Level 2.6 2.8 Magnesium Level 1.8 1.8 Bedside Glucose 176 235 H White Blood Count 10.2 Red Blood Count 4.28 #L Hemoglobin 13.2 #L Hematocrit 38.0 #L Mean Corpuscular 88.8 Volume Mean Corpuscular 30.8 Hemoglobin Mean Corpuscular 34.7 Hemoglobin Concent Red Cell 12.9 Distribution Width Platelet Count 324 # Mean Platelet Volume 10.9 H Immature 0.700 H Granulocytes % Neutrophils % 72.4 Lymphocytes % 18.3 Monocytes % 6.6 Eosinophils % 1.3 Basophils % 0.7 Nucleated Red Blood 0.0 Cells % Immature 0.070 H Granulocytes # Neutrophils # 7.4 Lymphocytes # 1.9 Monocytes # 0.7 Eosinophils # 0.1 Basophils # 0.1 Nucleated Red Blood 0.0 Cells # Test 04/07/19 09:54 04/07/19 13:14 Sodium Level 138 Potassium Level 3.6 Chloride Level 106 Carbon Dioxide Level 20 L Anion Gap 12 Blood Urea Nitrogen 4 L Creatinine 0.48 L Est Glomerular > 60 Filtrat Rate mL/min Glucose Level 241 H Calcium Level 8.3 L Phosphorus Level 2.9 Magnesium Level 1.8 Bedside Glucose 240 H Medications Medication Current Medications Ondansetron HCl (Zofran Inj) 4 mg Q6H PRN IV NAUSEA AND/OR VOMITING; Start 04/06/19 at 01:30 Albuterol (Proventil 0.083% (Neb)) 2.5 mg Q4H RESP THERAPY NEB Last administered on 04/07/19at 13:54; Admin Dose 2.5 MG; Start 04/06/19 at 05:00 Ipratropium [place] (Atrovent 0.02% (Neb)) 0.5 mg Q4H RESP THERAPY NEB Last administered on 04/07/19at 13:54; Admin Dose 0.5 MG; Start 04/06/19 at 05:00 Acetaminophen (Tylenol Liquid) 650 mg Q6H PRN PO PAIN LEVEL 1-3 OR FEVER; Start 04/06/19 at 01:30 Acetaminophen/ Hydrocodone Bitart ([place] (5/325)) 1 tab Q6H PRN PO PAIN LEVEL 4-6 Last administered on 04/07/19at 06:44; Admin Dose 1 TAB; Start 04/06/19 at 01:30 Docusate Sodium (Colace) 100 mg Q12H PRN PO CONSTIPATION; Start 04/06/19 at 01:30 Bisacodyl (Dulcolax) 5 mg DAILY PRN PO CONSTIPATION; Start 04/06/19 at 01:30 Enoxaparin Sodium (Lovenox) 40 mg DAILY SC Last administered on 04/06/19at 08:31; Admin Dose 40 MG; Start 04/06/19 at 09:00 Vancomycin HCl (Vanco Iv Per Pharmacy) VANCOMYCIN PER PHARMACY PER PROTOCOL XX ; Start 04/06/19 at 01:30 Lorazepam (Ativan) 1 mg Q4 PRN IV CONTROL WITHDRAWAL SYMPTOMS; Start 04/06/19 at 01:30 Vancomycin HCl 250 ml @ 125 mls/hr Q12H IVPB Last administered on 04/07/19at 02:59; Admin Dose 125 MLS/HR; Start 04/06/19 at 15:00 Tramadol HCl (Ultram) 50 mg Q4 PRN PO PAIN Last administered on 04/07/19at 11:18; Admin Dose 50 MG; Start 04/06/19 at 05:00 Hydroxyzine HCl (Atarax) 50 mg Q6H PRN PO ITCHING; Start 04/06/19 at 06:00 Miscellaneous Information 1 ea NOTE XX ; Start 04/06/19 at 08:00 Glucose (Glutose) 15 gm Q15M PRN PO DECREASED GLUCOSE; Start 04/06/19 at 08:00 Glucose (Glutose) 22.5 gm Q15M PRN PO DECREASED GLUCOSE; Start 04/06/19 at 08:00 Dextrose (D50w Syringe) 25 ml Q15M PRN IV DECREASED GLUCOSE; Start 04/06/19 at 08:00 Dextrose (D50w Syringe) 50 ml Q15M PRN IV DECREASED GLUCOSE; Start 04/06/19 at 08:00 Glucagon (Glucagen) 1 mg Q15M PRN IM DECREASED GLUCOSE; Start 04/06/19 at 08:00 Glucose (Glutose) 15 gm Q15M PRN BUCCAL DECREASED GLUCOSE; Start 04/06/19 at 08:00 Metformin HCl (Glucophage) 500 mg BID WITH MEALS PO Last administered on 04/06/19at 18:44; Admin Dose 500 MG; Start 04/06/19 at 18:30 Diagnostic Test (Pha) (Accu-Chek) 1 ea AC MEALS AND BEDTIME XX ; Start 04/06/19 at 21:00 Nateglinide (Starlix) 60 mg AC MEALS PO ; Start 04/07/19 at 07:30 Insulin Aspart (Novolog Insulin Pen) NOVOLOG *MILD* ALGORI... Q4 SC Last administered on 04/07/19at 13:25; Admin Dose 3 UNIT; Start 04/06/19 at 21:00 Dextrose/Sodium Chloride 1,000 ml @ 80 mls/hr [id number] IV Last administered on 04/07/19at 00:33; Admin Dose 80 MLS/HR; Start 04/07/19 at 00:00 JORGE CUEVAS MD Apr 07, 2019 14:09
--- NOTE | 2019-04-07 15:43 | CONS ---
Assessment/Plan Assessment/Plan Problems: (1) Type 2 diabetes mellitus with hyperglycemia Status: Chronic Comment: Sugars are fair. Please note this is being driven along by the infection which is scheduled for incision and drainage today. Anticipate much better sugars tomorrow. Trying go with an oral regimen to get better sugar control for cooperation Qualifiers: Diabetes mellitus halfway insulin use: unspecified halfway insulin use status Qualified Codes: E11.65 - Type 2 diabetes mellitus with hyperglycemia Consultation Date/Type/Reason Admit Date/Time Apr 06, 2019 at 01:19 Initial Consult Date 04/06/19 Type of Consult Endocrine Reason for Consultation Diabetes mellitus type 2 with inadequate outpatient control, abscess of right distal thigh; Requesting Provider: SASHA KELLEY Date/Time of Note DATE: 04/07/19 TIME: 15:41 24 HR Interval Summary Free Text/Dictation Patient reports his leg is hurting. He is scheduled for the OR today Constitutional: no complaints Detailed Summary Respiratory: no complaints Cardiovascular: no complaints Exam/Review of Systems Exam Vitals Vital Signs Date Temp Pulse Resp B/P (MAP) Pulse Ox O2 O2 Flow FiO2 Time Delivery Rate 04/07/19 69 18 99 21 13:54 04/07/19 106/65 09:18 (79) 04/07/19 98.2 Room Air 08:34 Intake and Output 04/06/19 04/06/19 04/07/19 1515:00 23:00 07:00 IntakeIntake Total 650 ml 1000 ml OutputOutput Total 200 ml 600 ml BalanceBalance 450 ml 400 ml Constitutional: alert, oriented Respiratory: clear to auscultation, normal air movement Cardiovascular: regular rate and rhythm, nl pulses Results Result Diagram: 04/07/19 0635 04/07/19 1407 Results 24hrs Laboratory Tests Test 04/06/19 17:41 04/06/19 21:04 04/06/19 21:22 04/07/19 00:31 Bedside Glucose 152 298 H 216 Sodium Level 136 Potassium Level 3.7 Chloride Level 105 Carbon Dioxide Level 20 L Anion Gap 11 Blood Urea Nitrogen 7 Creatinine 0.57 L Est Glomerular > 60 Filtrat Rate mL/min Glucose Level 338 #H Calcium Level 8.3 L Phosphorus Level 2.4 L Magnesium Level 1.9 Test 04/07/19 00:43 04/07/19 05:16 04/07/19 06:35 04/07/19 09:10 Sodium Level 135 139 Potassium Level 3.0 L 3.5 Chloride Level 105 104 Carbon Dioxide Level 22 20 L Anion Gap 8 15 #H Blood Urea Nitrogen 7 4 L Creatinine 0.43 L 0.50 L Est Glomerular > 60 > 60 Filtrat Rate mL/min Glucose Level 218 # 230 H Calcium Level 8.3 L 8.6 Phosphorus Level 2.6 2.8 Magnesium Level 1.8 1.8 Bedside Glucose 176 235 H White Blood Count 10.2 Red Blood Count 4.28 #L Hemoglobin 13.2 #L Hematocrit 38.0 #L Mean Corpuscular 88.8 Volume Mean Corpuscular 30.8 Hemoglobin Mean Corpuscular 34.7 Hemoglobin Concent Red Cell 12.9 Distribution Width Platelet Count 324 # Mean Platelet Volume 10.9 H Immature 0.700 H Granulocytes % Neutrophils % 72.4 Lymphocytes % 18.3 Monocytes % 6.6 Eosinophils % 1.3 Basophils % 0.7 Nucleated Red Blood 0.0 Cells % Immature 0.070 H Granulocytes # Neutrophils # 7.4 Lymphocytes # 1.9 Monocytes # 0.7 Eosinophils # 0.1 Basophils # 0.1 Nucleated Red Blood 0.0 Cells # Test 04/07/19 09:54 04/07/19 13:14 04/07/19 14:07 Sodium Level 138 137 Potassium Level 3.6 3.5 Chloride Level 106 104 Carbon Dioxide Level 20 L 21 Anion Gap 12 12 Blood Urea Nitrogen 4 L 3 L Creatinine 0.48 L 0.41 L Est Glomerular > 60 > 60 Filtrat Rate mL/min Glucose Level 241 H 194 Calcium Level 8.3 L 8.4 Phosphorus Level 2.9 2.9 Magnesium Level 1.8 1.7 Bedside Glucose 240 H Vancomycin Level < 5.0 L Trough Medications Medication Current Medications Ondansetron HCl (Zofran Inj) 4 mg Q6H PRN IV NAUSEA AND/OR VOMITING; Start 04/06/19 at 01:30 Albuterol (Proventil 0.083% (Neb)) 2.5 mg Q4H RESP THERAPY NEB Last administered on 04/07/19at 13:54; Admin Dose 2.5 MG; Start 04/06/19 at 05:00 Ipratropium [place] (Atrovent 0.02% (Neb)) 0.5 mg Q4H RESP THERAPY NEB Last administered on 04/07/19at 13:54; Admin Dose 0.5 MG; Start 04/06/19 at 05:00 Acetaminophen (Tylenol Liquid) 650 mg Q6H PRN PO PAIN LEVEL 1-3 OR FEVER; Start 04/06/19 at 01:30 Acetaminophen/ Hydrocodone Bitart ([place] (5/325)) 1 tab Q6H PRN PO PAIN LEVEL 4-6 Last administered on 04/07/19at 06:44; Admin Dose 1 TAB; Start 04/06/19 at 01:30 Docusate Sodium (Colace) 100 mg Q12H PRN PO CONSTIPATION; Start 04/06/19 at 01:30 Bisacodyl (Dulcolax) 5 mg DAILY PRN PO CONSTIPATION; Start 04/06/19 at 01:30 Enoxaparin Sodium (Lovenox) 40 mg DAILY SC Last administered on 04/06/19at 08:31; Admin Dose 40 MG; Start 04/06/19 at 09:00 Vancomycin HCl (Vanco Iv Per Pharmacy) VANCOMYCIN PER PHARMACY PER PROTOCOL XX ; Start 04/06/19 at 01:30 Lorazepam (Ativan) 1 mg Q4 PRN IV CONTROL WITHDRAWAL SYMPTOMS; Start 04/06/19 at 01:30 Tramadol HCl (Ultram) 50 mg Q4 PRN PO PAIN Last administered on 04/07/19at 11:18; Admin Dose 50 MG; Start 04/06/19 at 05:00 Hydroxyzine HCl (Atarax) 50 mg Q6H PRN PO ITCHING; Start 04/06/19 at 06:00 Miscellaneous Information 1 ea NOTE XX ; Start 04/06/19 at 08:00 Glucose (Glutose) 15 gm Q15M PRN PO DECREASED GLUCOSE; Start 04/06/19 at 08:00 Glucose (Glutose) 22.5 gm Q15M PRN PO DECREASED GLUCOSE; Start 04/06/19 at 08:00 Dextrose (D50w Syringe) 25 ml Q15M PRN IV DECREASED GLUCOSE; Start 04/06/19 at 08:00 Dextrose (D50w Syringe) 50 ml Q15M PRN IV DECREASED GLUCOSE; Start 04/06/19 at 08:00 Glucagon (Glucagen) 1 mg Q15M PRN IM DECREASED GLUCOSE; Start 04/06/19 at 08:00 Glucose (Glutose) 15 gm Q15M PRN BUCCAL DECREASED GLUCOSE; Start 04/06/19 at 08:00 Metformin HCl (Glucophage) 500 mg BID WITH MEALS PO Last administered on 04/06/19at 18:44; Admin Dose 500 MG; Start 04/06/19 at 18:30 Diagnostic Test (Pha) (Accu-Chek) 1 ea AC MEALS AND BEDTIME XX ; Start 04/06/19 at 21:00 Nateglinide (Starlix) 60 mg AC MEALS PO ; Start 04/07/19 at 07:30 Insulin Aspart (Novolog Insulin Pen) NOVOLOG *MILD* ALGORI... Q4 SC Last administered on 04/07/19at 13:25; Admin Dose 3 UNIT; Start 04/06/19 at 21:00 Dextrose/Sodium Chloride 1,000 ml @ 80 mls/hr [id number] IV Last administered on 04/07/19at 15:08; Admin Dose 80 MLS/HR; Start 04/07/19 at 00:00 Miscellaneous Information (*Rx Drug Level Order Reminder*) SHANNENO TR AT 1400 1400 ONCE XX ; Start 04/08/19 at 14:00; Stop 04/08/19 at 14:01 Vancomycin HCl 250 ml @ 125 mls/hr Q8H IVPB ; Start 04/07/19 at 23:00 DEIDRA MORTENSEN MD Apr 07, 2019 15:43
[2019-04-07] MEDS: LACTATED RINGER'S 1,000 ML IV SCH (16:06)
[2019-04-07] MEDS: metFORMIN 850 MG TAB PO SCH (16:50)
[2019-04-07] MEDS: NATEGLINIDE 120 MG TAB PO SCH (16:50)
--- NOTE | 2019-04-07 18:04 | HPN ---
Date/Time of Note Date/Time of Note DATE: 04/07/19 TIME: 18:03 Interval H&P Admission Note Pt. seen H&P reviewed: No system changes Patient denies fever, chills, shortness of breath, chest pain, nausea/vomiting, constipation, diarrhea, numbness, and tingling. MUSCULOSKELETAL: Right lower extremity Skin intact. There is erythema, fluctuance, warmth, tenderness palpation, swelling over the anterior distal thigh. The knee joint itself is not involved. Extra-articular abscess. Sensation intact to light touch in a sural, saphenous, deep peroneal, super ficial peroneal, medial and lateral plantar nerve distribution. Motor is intact, patient able to dorsiflex and plantarflex ankle and extend and flex great toe. Dorsalis Pedis pulse +2, Brisk capillary refill. Compartments are soft. Calves non-tender to palpation bilaterally. MANPREET LIZARRAGA MD Apr 07, 2019 18:04
[2019-04-07] MEDS ORDERED: BUPIVACAINE 0.5% (SDV) 30 ML INJ ONE (18:18)
--- NOTE | 2019-04-07 18:30 | PREAC ---
Date/Time of Note Date/Time of Note DATE: 04/07/19 TIME: 18:28 Anesthesia Eval and Record Evaluation Time Pre-Procedure Interview DATE: 04/07/19 TIME: 18:28 Age 48 Sex male NPO: 8 hrs Preoperative diagnosis Right Knee infection Planned procedure Right Knee I & D Past Medical History Past Medical History: Includes Cardio: HTN, Dyslipidemia Endo: Diabetes Renal: CKD Hepatic: Alcohol abuse Heme: Anemia Surgery & Anesthesia Issues No known issue Meds Anticoagulation: No Beta [facility] within 24 hr: No Reason Beta [facility] not given: Pt. not on B-[facility] Active Scripts Acetaminophen* (Tylenol*) 325 Mg Tablet, 2 TAB PO Q6 PRN for PAIN AND OR EL EVATED TEMP, #20 TAB Prov:LIAM ROWE MD 01/23/19 Acetaminophen* (Tylophen*) 500 Mg Capsule, 1 CAP PO Q6H PRN for PAIN AND OR ELEVATED TEMP, #20 CAP Prov:DHRUV DIAZ PA-C 01/20/19 Sulfamethoxazole/Trimethoprim* (Bactrim Ds* Tablet) 1 Each Tablet, 1 TAB PO BID, #14 TAB Prov:DHRUV DIAZ PA-C 01/20/19 Cephalexin* (Keflex*) 500 Mg Capsule, 500 MG PO TID for 7 Days, CAP Prov:DHRUV DIAZ PA-C 01/20/19 Sitagliptin* (Januvia*) 100 Mg Tablet, 100 MG PO DAILY, #30 TAB 3 Refills Prov:RENATO BURNS 09/15/18 Insulin Aspart* (Novolog Insulin Pen*) 100 Unit/Ml Soln, 6 UNIT SC WITH MEALS for 30 Days, #1 BOX 3 Refills alternative: humalog at same dose, directions, and refills Prov:RENATO BURNS 09/15/18 [Insulin Glargine] 100 UNITS/ML SOLN No Conflict Check, 16 UNITS SC DAILY@08 for 30 Days, #1 BOX 3 Refills alternative:wolfgang singletary tresiba. Same dose and direction with same refills Prov:RENATO BURNS 09/15/18 Loratadine* (Claritin*) 10 Mg Capsule, 10 MG PO DAILY, #15 CAP Prov:MARQUIS DUNN PA-C 07/14/18 Albuterol Sulfate* (Ventolin HFA*) 18 Gm Hfa.aer.ad, 2 PUFF INHALATION Q4H, #1 INHALER Prov:MARQUIS DUNN PA-C 07/14/18 Wool Alcoh/Min Oil/Radha/Pratts (Eucerin Creme) 454 Gm Cream.gm., 454 GM TP BID, #1 TUB Prov:MARQUIS DUNN PA-C 07/14/18 Hydrocortisone* Topical (Hydrocortisone* Topical) 2.5%-28.3 Gm Cream..g., 1 APPLIC TOP BID, #1 TUB Prov:MARQUIS DUNN PA-C 07/14/18 Hydroxyzine Hcl* (Hydroxyzine Hcl*) 50 Mg Tablet, 50 MG PO Q6H PRN for ITCHING, #30 TAB Prov:SHAILA DALE 07/04/18 Reported Medications Famotidine* (Famotidine*) 20 Mg Tablet, 20 MG PO DAILY, #30 TAB 01/28/18 Tramadol Hcl* (Ultram*) 50 Mg Tablet, 50 MG PO Q4 PRN for PAIN, TAB 01/28/18 Current Medications Ondansetron HCl (Zofran Inj) 4 mg Q6H PRN IV NAUSEA AND/OR VOMITING; Start 04/06/19 at 01:30 Albuterol (Proventil 0.083% (Neb)) 2.5 mg Q4H RESP THERAPY NEB Last administered on 04/07/19at 13:54; Admin Dose 2.5 MG; Start 04/06/19 at 05:00 Ipratropium [place] (Atrovent 0.02% (Neb)) 0.5 mg Q4H RESP THERAPY NEB Last administered on 04/07/19at 13:54; Admin Dose 0.5 MG; Start 04/06/19 at 05:00 Acetaminophen (Tylenol Liquid) 650 mg Q6H PRN PO PAIN LEVEL 1-3 OR FEVER; Start 04/06/19 at 01:30 Acetaminophen/ Hydrocodone Bitart ([place] (5/325)) 1 tab Q6H PRN PO PAIN LEVEL 4-6 Last administered on 04/07/19at 06:44; Admin Dose 1 TAB; Start 04/06/19 at 01: 30 Docusate Sodium (Colace) 100 mg Q12H PRN PO CONSTIPATION; Start 04/06/19 at 01:30 Bisacodyl (Dulcolax) 5 mg DAILY PRN PO CONSTIPATION; Start 04/06/19 at 01:30 Enoxaparin Sodium (Lovenox) 40 mg DAILY SC Last administered on 04/06/19at 08:31; Admin Dose 40 MG; Start 04/06/19 at 09:00 Vancomycin HCl (Vanco Iv Per Pharmacy) VANCOMYCIN PER PHARMACY PER PROTOCOL XX ; Start 04/06/19 at 01:30 Lorazepam (Ativan) 1 mg Q4 PRN IV CONTROL WITHDRAWAL SYMPTOMS; Start 04/06/19 at 01:30 Tramadol HCl (Ultram) 50 mg Q4 PRN PO PAIN Last administered on 04/07/19at 11:18; Admin Dose 50 MG; Start 04/06/19 at 05:00 Hydroxyzine HCl (Atarax) 50 mg Q6H PRN PO ITCHING; Start 04/06/19 at 06:00 Miscellaneous Information 1 ea NOTE XX ; Start 04/06/19 at 08:00 Glucose (Glutose) 15 gm Q15M PRN PO DECREASED GLUCOSE; Start 04/06/19 at 08:00 Glucose (Glutose) 22.5 gm Q15M PRN PO DECREASED GLUCOSE; Start 04/06/19 at 08:00 Dextrose (D50w Syringe) 25 ml Q15M PRN IV DECREASED GLUCOSE; Start 04/06/19 at 08:00 Dextrose (D50w Syringe) 50 ml Q15M PRN IV DECREASED GLUCOSE; Start 04/06/19 at 08:00 Glucagon (Glucagen) 1 mg Q15M PRN IM DECREASED GLUCOSE; Start 04/06/19 at 08:00 Glucose (Glutose) 15 gm Q15M PRN BUCCAL DECREASED GLUCOSE; Start 04/06/19 at 08:00 Diagnostic Test (Pha) (Accu-Chek) 1 ea AC MEALS AND BEDTIME XX ; Start 04/06/19 at 21:00 Insulin Aspart (Novolog Insulin Pen) NOVOLOG *MILD* ALGORI... Q4 SC Last administered on 04/07/19at 16:47; Admin Dose 1 UNIT; Start 04/06/19 at 21:00 Miscellaneous Information (*Rx Drug Level Order Reminder*) VANCO TR AT 1400 1400 ONCE XX ; Start 04/08/19 at 14:00; Stop 04/08/19 at 14:01 Vancomycin HCl 250 ml @ 125 mls/hr Q8H IVPB ; Start 04/07/19 at 23:00 Metformin HCl (Glucophage) 850 mg BID WITH MEALS PO ; Start 04/07/19 at 18:05 Nateglinide (Starlix) 120 mg AC MEALS PO ; Start 04/07/19 at 17:35 Lactated Ringer's 1,000 ml @ 80 mls/hr [id number] IV Last administered on 04/07/19at 16:06; Admin Dose 80 MLS/HR; Start 04/07/19 at 16:00 Insulin Glargine (Lantus) 10 units DAILY@2000 SC ; Start 04/07/19 at 20:00 Meds reviewed: Yes Allergies Coded Allergies: No Known Allergy (Unverified , 01/24/19) Allergies Reviewed: Yes Labs/Studies Labs Reviewed: Reviewed by anesthesiologist Result Diagram: 04/07/19 0635 04/07/19 1407 Laboratory Tests 04/07/19 06:35 04/07/19 14:07 test: N/A Studies: ECG (n/a), CXR (n/a) Pre-procedure Exam Last vitals Vital Signs Date Temp Pulse Resp B/P (MAP) Pulse Ox O2 O2 Flow FiO2 Time Delivery Rate 04/07/19 98.1 96 18 105/56 98 Room Air 14:30 (72) 04/07/19 21 13:54 Airway: Adequate mouth opening, Adequate thyromental dist Mallampati: Mallampati II Teeth: Normal Lung: Normal Heart: Normal ASA Physical Status ASA physical status: 3 Emergency: E Planned Anesthetic General/MAC: LMA Nerve block: Femoral (right) Planned Pain Management Single shot nerve block, Parenteral pain med Pre-operative Attestations Prior to commencing anesthesia and surgery, the patient was re-evaluated, there was verification of: *The patient's identity *The results of appropriate recent lab work and preoperative vital signs *The above evaluation not changing prior to induction *Anesthetic plan, risk benefits, alternative and complications discussed with patient/family; questions answered; patient/family understands, accepts and wishes to proceed. DANE SMITH MD Apr 07, 2019 18:30
[2019-04-07] MEDS ORDERED: CEFAZOLIN 1 GM INJ ONE (18:31)
[2019-04-07] MEDS ORDERED: PROPOFOL 20 ML ONE (18:31)
[2019-04-07] MEDS ORDERED: ROPIVACAINE 0.5 % 30 ML VIAL ONE (18:32)
[2019-04-07] MEDS ORDERED: FENTAnyl 50 MCG/ML VIAL ONE (18:32)
[2019-04-07] MEDS ORDERED: MIDAZOLAM 1 MG/ML 2 ML INJ ONE (18:32)
[2019-04-07] MEDS ORDERED: ONDANSETRON 4 MG INJ ONE (18:54)
[2019-04-07] MEDS ORDERED: DEXAMETHASONE 4 MG/ML 5 ML INJ ONE (18:54)
[2019-04-07] MEDS ORDERED: METOCLOPRAMIDE 10 MG INJ ONE (18:54)
[2019-04-07] MEDS ORDERED: METOCLOPRAMIDE 10 MG INJ IV PRN (19:00)
[2019-04-07] MEDS ORDERED: EPHEDrine 25 MG/5 ML SYG IV PRN (19:00)
[2019-04-07] MEDS ORDERED: DIPHENHYDRAMINE 50 MG INJ IV PRN (19:00)
[2019-04-07] MEDS ORDERED: OXYCODONE/ACETAMINOPHEN (5/325) TAB PO PRN (19:00)
[2019-04-07] MEDS ORDERED: hydrALAzine 20 MG INJ IV PRN (19:00)
[2019-04-07] MEDS ORDERED: MEPERIDINE 25 MG INJ IV PRN (19:00)
[2019-04-07] MEDS ORDERED: ONDANSETRON 4 MG INJ IV PRN (19:00)
[2019-04-07] MEDS ORDERED: LABETALOL HCL 20MG INJ IV PRN (19:00)
[2019-04-07] MEDS ORDERED: HYDROmorphONE 1 MG/5 ML IV SYRINGE IV PRN ×3 (19:00)
[2019-04-07] MEDS ORDERED: FENTAnyl 50 MCG/ML VIAL IV PRN ×3 (19:00)
--- NOTE | 2019-04-07 19:20 | PAC ---
Date/Time of Note Date/Time of Note DATE: 04/07/19 TIME: 19:20 Post-Anesthesia Notes Post-Anesthesia Note Last documented vital signs Vital Signs Date Temp Pulse Resp B/P (MAP) Pulse Ox O2 O2 Flow FiO2 Time Delivery Rate 04/07/19 98.2 96 18 105/56 98 Room Air 19:20 (72) 04/07/19 21 13:54 Activity: WNL Respiratory function: WNL Cardiovascular function: WNL Mental status: Baseline Pain reasonably controlled: Yes Hydration appropriate: Yes Nausea/Vomiting absent: Yes DANE SMITH MD Apr 07, 2019 19:20
--- NOTE | 2019-04-07 19:32 | OPR ---
Date/Time of Note Date/Time of Note DATE: 04/07/19 TIME: 19:23 Operative Report Procedure Date: Apr 07, 2019 Preoperative Diagnosis Right distal thigh abscess Postoperative Diagnosis Right distal thigh abscess, extra-articular Operation/Procedure Performed Irrigation debridement right distal thigh abscess 4 x 6 cm debridement with sharp excision and abrasion of skin, subcutaneous tissue, and fascia. Surgeon see signature line Kiln Furniture Saw Tender None Anesthesia Type: MAC Estimated Blood Loss: 0 - 10 ml's Transfusion none Specimen Right distal thigh abscess fluid sent for aerobic, anaerobic, fungal Grafts/Implants none Complications none Pt Condition Post Procedure: stable Disposition: PACU Procedure Description Indications and consent: Patient is a 40-year-old male with diabetes. He originally presented to [facility] in [facility]. He was admitted to the ICU for treatment of DKA and supportive care. He was found to have a right distal thigh abscess. Orthopedics was consulted at that time. The abscess was fairly superficial. It was distal and close to the knee. However clinically there was little concern for intra-articular involvement as the patient could extend and flex knee with minimal to no pain. He had no pain with axial loading. The erythema was localized to the anterior distal thigh over the superficial abscess. Given location of the abscess as well as concern for repeat patient's ability to tolerate procedure is elected to do this in the operating room. Benefits and risks were explained the patient understood these benefits and risks and wished to proceed with surgery. Procedure detail: Patient was brought to the operating room. His transfer the hospital bed operative spine position. All bony prominences were well-padded. Patient was then administered monitored anesthesia care followed by an abductor canal block by the anesthesiologist. The right lower extremity was prepped and draped in normal sterile fashion. Timeout was performed confirming patient's name, medical record number, diagnosis, procedure to be performed, and laterality procedure. 2 g of Ancef was dosed. A marking pen was used to pavithra a longitudinal incision over the abscess. This is approximately 4 cm in length. A 10 blade was used to sharply dissect through the skin and subcutaneous tissue. Purulent drainage was immediately encountered. There was necrotic tissue and debris within this drainage. This was placed in a specimen cup and sent for culture. The culture included aerobic, anaerobic, fungal. At this time proceeded to suction out the remaining of the purulent material. Loculations were broken up by both blunt technique as well as scissors. Several other pockets of purulent material was encountered. This was suctioned out. At this time irrigated the wound with approximately 1.5 L of normal saline with cystoscopy tubing. At this time the wound appeared to be fairly clean. The abscess was clearly superficial to the quadriceps tendon and muscle. After preliminary irrigation debridement careful inspection of the distal quad muscle as well as the tendon confirmed that it was intact with no communication with the knee joint. Therefore there was little concern at this time that the irrigation debridement need to be done deeper into the knee joint. Curettes as well as lap sponges were used to debride the subcutaneous tissue and the superficial quadricep muscle and fascia. At this time an additional 1.5 L of normal saline was used for irrigation with cystoscopy tubing. The wound was cleaned. There is no further necrotic tissue appreciated. No more drainage. Hemostasis was obtained. This time it was decided given the superficial nature of the wound as well as the size of the wound. Best treated with packing and not formal closure. 1 inch iodoform packing was used to pack the space. This was covered with 4 x 4's and ABD and John wrap. All counts were correct x2. Patient was awoken and transferred to PACU stable condition. Next Disposition: Patient was awoken and transferred to PACU stable condition. He will continue IV antibiotics per infectious disease and medicine recommendations. We will continue to follow cultures. Antibiotics will be tailored to culture results. Packing changes should begin 24 hours after surgery. They will be done twice daily. Continued close monitoring of the knee joint itself will be required to ensure that the knee in fact was not involved. Patient is weight-bear as tolerated. Range of motion as tolerated. MANPREET LIZARRAGA MD Apr 07, 2019 19:32
[2019-04-07] MEDS ORDERED: INSULIN GLARGINE [LANTus] (100 UNITS/ML) SYG SC SCH (20:00)
[2019-04-08 01:53] VITALS: BP 107/64; PULSE 78; RESP 18
[2019-04-08] MEDS: ALBUTEROL 0.083% (NEB) 2.5 MG/3 ML AMP NEB SCH ×6 (03:33→21:00)
[2019-04-08] MEDS: IPRATROPIUM (NEB) 0.5 MG/2.5 ML AMP NEB SCH ×6 (03:33→21:00)
[2019-04-08] MEDS: LACTATED RINGER'S 1,000 ML IV SCH ×2 (04:21→15:41)
[2019-04-08] MEDS: VANCOMYCIN 1 GM 250 ML IVPB SCH ×3 (06:07→23:25)
[2019-04-08] MEDS: ACCU-CHEK XX SCH ×4 (07:30→21:54)
[2019-04-08 08:00] VITALS: BP 125/74; PULSE 88; RESP 20
[2019-04-08] MEDS: metFORMIN 850 MG TAB PO SCH ×2 (08:08→17:17)
[2019-04-08] MEDS: NATEGLINIDE 120 MG TAB PO SCH ×3 (08:08→17:17)
[2019-04-08] MEDS: ENOXAPARIN 40 MG/0.4 ML SYG SC SCH (08:10)
[2019-04-08] MEDS: INSULIN ASPART [NOVOLOG] 3 ML PEN SC SCH ×4 (08:10→21:49)
[2019-04-08] MEDS: traMADol 50 MG TAB PO PRN ×2 (10:07→15:39)
[2019-04-08] MEDS: HYDROCODONE/APAP (5/325) TAB PO PRN (12:04)
[2019-04-08 14:00] VITALS: BP 132/64; PULSE 76; RESP 20
--- NOTE | 2019-04-08 17:09 | PN ---
Date/Time of Note Date/Time of Note DATE: 04/08/19 TIME: 17:08 Assessment/Plan VTE Prophylaxis Risk score (from Ns)>0 risk: 3 SCD applied (from Ns): Yes Pharmacological prophylaxis: heparin Lines/Catheters IV Catheter Type (from Nrs): Saline Lock Assessment/Plan Hospital Course AOx3 RRR CTAB R leg wrapped A/P: 48 yo male wtih DKA and likely abscess of leg DKA: - Resolved DMII: - Basal/bolus insulin - metformin added Knee abscess -Status post OR with incision and drainage with Dr Stevenson -Continue wound care - Continue vanco/zosyn for now pending sensitivities RAULITO: - Resolved with fluids Result Diagram: 04/08/19 0304 04/08/19 0304 Results 24hrs Laboratory Tests Test 04/07/19 19:25 04/07/19 20:37 04/07/19 22:17 04/08/19 03:04 Bedside Glucose 191 149 Sodium Level 135 136 Potassium Level 4.1 4.4 Chloride Level 103 104 Carbon Dioxide Level 18 L 15 L Anion Gap 14 H 17 H Blood Urea Nitrogen 5 L 12 Creatinine 0.48 L 0.67 Est Glomerular > 60 > 60 Filtrat Rate mL/min Glucose Level 291 H 291 H Calcium Level 8.4 8.6 Phosphorus Level 3.5 4.1 Magnesium Level 1.7 1.8 White Blood Count 11.1 H Red Blood Count 4.08 L Hemoglobin 12.5 L Hematocrit 36.4 L Mean Corpuscular 89.2 Volume Mean Corpuscular 30.6 Hemoglobin Mean Corpuscular 34.3 Hemoglobin Concent Red Cell 12.8 Distribution Width Platelet Count 322 Mean Platelet Volume 10.4 Immature 0.700 H Granulocytes % Neutrophils % 91.9 H Segmented 82 H Neutrophils % (Manual) Band Neutrophils % 7 H (Manual) Lymphocytes % 6.2 L Lymphocytes % 10 L (Manual) Monocytes % 0.9 Monocytes % (Manual) 1 Eosinophils % 0.0 Basophils % 0.3 Nucleated Red Blood 0.0 Cells % Immature 0.080 H Granulocytes # Neutrophils # 10.2 H Neutrophils # 9.2 H (Manual) Band Neutrophils # 0.7 H Lymphocytes (Manual) 1.1 Lymphocytes # 0.7 L Monocytes # 0.1 L Monocytes # (Manual) 0.1 L Eosinophils # 0.0 Basophils # 0.0 Nucleated Red Blood 0.0 Cells # Platelet Estimate NORMAL Polychromasia 3+ Test 04/08/19 08:06 04/08/19 11:58 04/08/19 13:52 Bedside Glucose 238 H 255 H Vancomycin Level 10.1 Trough Subjective 24 Hr Interval Summary Free Text/Dictation Surgical drainage of his abscess was performed yesterday successfully. Cultures are so far growing staph aureus. The patient is comfortable. Hyperglycemia persists Exam/Review of Systems Exam Vitals Vital Signs Date Temp Pulse Resp B/P (MAP) Pulse Ox O2 O2 Flow FiO2 Time Delivery Rate 04/08/19 98.6 88 20 125/74 94 08:00 (91) 04/08/19 21 05:51 04/08/19 Room Air 01:53 04/07/19 8.0 19:34 Intake and Output 04/07/19 04/07/19 04/08/19 1414:59 22:59 06:59 IntakeIntake Total 2030 ml 680 ml OutputOutput Total 5 ml BalanceBalance 2025 ml 680 ml Results Results 24hrs Laboratory Tests Test 04/07/19 19:25 04/07/19 20:37 04/07/19 22:17 04/08/19 03:04 Bedside Glucose 191 149 Sodium Level 135 136 Potassium Level 4.1 4.4 Chloride Level 103 104 Carbon Dioxide Level 18 L 15 L Anion Gap 14 H 17 H Blood Urea Nitrogen 5 L 12 Creatinine 0.48 L 0.67 Est Glomerular > 60 > 60 Filtrat Rate mL/min Glucose Level 291 H 291 H Calcium Level 8.4 8.6 Phosphorus Level 3.5 4.1 Magnesium Level 1.7 1.8 White Blood Count 11.1 H Red Blood Count 4.08 L Hemoglobin 12.5 L Hematocrit 36.4 L Mean Corpuscular 89.2 Volume Mean Corpuscular 30.6 Hemoglobin Mean Corpuscular 34.3 Hemoglobin Concent Red Cell 12.8 Distribution Width Platelet Count 322 Mean Platelet Volume 10.4 Immature 0.700 H Granulocytes % Neutrophils % 91.9 H Segmented 82 H Neutrophils % (Manual) Band Neutrophils % 7 H (Manual) Lymphocytes % 6.2 L Lymphocytes % 10 L (Manual) Monocytes % 0.9 Monocytes % (Manual) 1 Eosinophils % 0.0 Basophils % 0.3 Nucleated Red Blood 0.0 Cells % Immature 0.080 H Granulocytes # Neutrophils # 10.2 H Neutrophils # 9.2 H (Manual) Band Neutrophils # 0.7 H Lymphocytes (Manual) 1.1 Lymphocytes # 0.7 L Monocytes # 0.1 L Monocytes # (Manual) 0.1 L Eosinophils # 0.0 Basophils # 0.0 Nucleated Red Blood 0.0 Cells # Platelet Estimate NORMAL Polychromasia 3+ Test 04/08/19 08:06 04/08/19 11:58 04/08/19 13:52 Bedside Glucose 238 H 255 H Vancomycin Level 10.1 Trough Medications Medication Current Medications Ondansetron HCl (Zofran Inj) 4 mg Q6H PRN IV NAUSEA AND/OR VOMITING; Start 04/06/19 at 01:30 Albuterol (Proventil 0.083% (Neb)) 2.5 mg Q4H RESP THERAPY NEB Last administered on 04/08/19at 05:51; Admin Dose 2.5 MG; Start 04/06/19 at 05:00 Ipratropium [place] (Atrovent 0.02% (Neb)) 0.5 mg Q4H RESP THERAPY NEB Last administered on 04/08/19at 05:51; Admin Dose 0.5 MG; Start 04/06/19 at 05:00 Acetaminophen (Tylenol Liquid) 650 mg Q6H PRN PO PAIN LEVEL 1-3 OR FEVER; Start 04/06/19 at 01:30 Acetaminophen/ Hydrocodone Bitart ([place] (5/325)) 1 tab Q6H PRN PO PAIN LEVEL 4-6 Last administered on 04/08/19at 12:04; Admin Dose 1 TAB; Start 04/06/19 at 01:30 Docusate Sodium (Colace) 100 mg Q12H PRN PO CONSTIPATION; Start 04/06/19 at 01: 30 Bisacodyl (Dulcolax) 5 mg DAILY PRN PO CONSTIPATION; Start 04/06/19 at 01:30 Enoxaparin Sodium (Lovenox) 40 mg DAILY SC Last administered on 04/08/19at 08:10; Admin Dose 40 MG; Start 04/06/19 at 09:00 Vancomycin HCl (Vanco Iv Per Pharmacy) VANCOMYCIN PER PHARMACY PER PROTOCOL XX ; Start 04/06/19 at 01:30 Lorazepam (Ativan) 1 mg Q4 PRN IV CONTROL WITHDRAWAL SYMPTOMS; Start 04/06/19 at 01:30 Tramadol HCl (Ultram) 50 mg Q4 PRN PO PAIN Last administered on 04/08/19at 15:39; Admin Dose 50 MG; Start 04/06/19 at 05:00 Hydroxyzine HCl (Atarax) 50 mg Q6H PRN PO ITCHING; Start 04/06/19 at 06:00 Miscellaneous Information 1 ea NOTE XX ; Start 04/06/19 at 08:00 Glucose (Glutose) 15 gm Q15M PRN PO DECREASED GLUCOSE; Start 04/06/19 at 08:00 Glucose (Glutose) 22.5 gm Q15M PRN PO DECREASED GLUCOSE; Start 04/06/19 at 08:00 Dextrose (D50w Syringe) 25 ml Q15M PRN IV DECREASED GLUCOSE; Start 04/06/19 at 08:00 Dextrose (D50w Syringe) 50 ml Q15M PRN IV DECREASED GLUCOSE; Start 04/06/19 at 08:00 Glucagon (Glucagen) 1 mg Q15M PRN IM DECREASED GLUCOSE; Start 04/06/19 at 08:00 Glucose (Glutose) 15 gm Q15M PRN BUCCAL DECREASED GLUCOSE; Start 04/06/19 at 08:00 Diagnostic Test (Pha) (Accu-Chek) 1 ea AC MEALS AND BEDTIME XX ; Start 04/06/19 at 21:00 Vancomycin HCl 250 ml @ 125 mls/hr Q8H IVPB Last administered on 04/08/19at 15:40; Admin Dose 125 MLS/HR; Start 04/07/19 at 23:00 Metformin HCl (Glucophage) 850 mg BID WITH MEALS PO Last administered on 04/08/19at 08:08; Admin Dose 850 MG; Start 04/07/19 at 18:05 Nateglinide (Starlix) 120 mg AC MEALS PO Last administered on 04/08/19at 12:00; Admin Dose 120 MG; Start 04/07/19 at 17:35 Lactated Ringer's 1,000 ml @ 80 mls/hr [id number] IV Last administered on 04/08/19at 15:41; Admin Dose 80 MLS/HR; Start 04/07/19 at 16:00 Insulin Glargine (Lantus) 10 units DAILY@2000 SC Last administered on 04/07/19at 20:42; Admin Dose 10 UNITS; Start 04/07/19 at 20:00 Insulin Aspart (Novolog Insulin Pen) NOVOLOG *MILD* ALGORITHM WITH MEALS BEDTIME SC Last administered on 04/08/19at 12:01; Admin Dose 3 UNIT; Start 04/07/19 at 21:00 JORGE CUEVAS MD Apr 08, 2019 17:08
--- NOTE | 2019-04-08 18:22 | CONS ---
Assessment/Plan Assessment/Plan Problems: (1) Type 2 diabetes mellitus with hyperglycemia Status: Chronic Comment: Sugar control is still running a little bit high but he is just had the incision and drainage. And then adjust the insulin along with oral agents to try and get him adequately controlled for simplified outpatient regimen. Qualifiers: Diabetes mellitus skilled nursing insulin use: unspecified skilled nursing insulin use status Qualified Codes: E11.65 - Type 2 diabetes mellitus with hyperglycemia Consultation Date/Type/Reason Admit Date/Time Apr 06, 2019 at 01:19 Initial Consult Date 04/06/19 Type of Consult Endocrine Reason for Consultation Diabetes mellitus type 2 with poor control; right distal thigh staph aureus abscess; Requesting Provider: SASHA KELLEY Date/Time of Note DATE: 04/08/19 TIME: 18:21 24 HR Interval Summary Free Text/Dictation The reports he feels better after the incision and drainage. Would like to know when he can go home Constitutional: no complaints Detailed Summary Gastrointestinal: no complaints Genitourinary: no complaints Musculoskeletal: no complaints Exam/Review of Systems Exam Vitals Vital Signs Date Temp Pulse Resp B/P (MAP) Pulse Ox O2 O2 Flow FiO2 Time Delivery Rate 04/08/19 97.8 76 20 132/64 98 14:00 (86) 04/08/19 21 05:51 04/08/19 Room Air 01:53 04/07/19 8.0 19:34 Intake and Output 04/07/19 04/07/19 04/08/19 1515:00 23:00 07:00 IntakeIntake Total 2030 ml 680 ml OutputOutput Total 5 ml BalanceBalance 2025 ml 680 ml Constitutional: alert, oriented Neck: supple, non-tender Respiratory: clear to auscultation, normal air movement Results Result Diagram: 04/08/19 0304 04/08/19 0304 Results 24hrs Laboratory Tests Test 04/07/19 19:25 04/07/19 20:37 04/07/19 22:17 04/08/19 03:04 Bedside Glucose 191 149 Sodium Level 135 136 Potassium Level 4.1 4.4 Chloride Level 103 104 Carbon Dioxide Level 18 L 15 L Anion Gap 14 H 17 H Blood Urea Nitrogen 5 L 12 Creatinine 0.48 L 0.67 Est Glomerular > 60 > 60 Filtrat Rate mL/min Glucose Level 291 H 291 H Calcium Level 8.4 8.6 Phosphorus Level 3.5 4.1 Magnesium Level 1.7 1.8 White Blood Count 11.1 H Red Blood Count 4.08 L Hemoglobin 12.5 L Hematocrit 36.4 L Mean Corpuscular 89.2 Volume Mean Corpuscular 30.6 Hemoglobin Mean Corpuscular 34.3 Hemoglobin Concent Red Cell 12.8 Distribution Width Platelet Count 322 Mean Platelet Volume 10.4 Immature 0.700 H Granulocytes % Neutrophils % 91.9 H Segmented 82 H Neutrophils % (Manual) Band Neutrophils % 7 H (Manual) Lymphocytes % 6.2 L Lymphocytes % 10 L (Manual) Monocytes % 0.9 Monocytes % (Manual) 1 Eosinophils % 0.0 Basophils % 0.3 Nucleated Red Blood 0.0 Cells % Immature 0.080 H Granulocytes # Neutrophils # 10.2 H Neutrophils # 9.2 H (Manual) Band Neutrophils # 0.7 H Lymphocytes (Manual) 1.1 Lymphocytes # 0.7 L Monocytes # 0.1 L Monocytes # (Manual) 0.1 L Eosinophils # 0.0 Basophils # 0.0 Nucleated Red Blood 0.0 Cells # Platelet Estimate NORMAL Polychromasia 3+ Test 04/08/19 08:06 04/08/19 11:58 04/08/19 13:52 04/08/19 17:15 Bedside Glucose 238 H 255 H 298 H Vancomycin Level 10.1 Trough Medications Medication Current Medications Ondansetron HCl (Zofran Inj) 4 mg Q6H PRN IV NAUSEA AND/OR VOMITING; Start 04/06/19 at 01:30 Albuterol (Proventil 0.083% (Neb)) 2.5 mg Q4H RESP THERAPY NEB Last administered on 04/08/19at 05:51; Admin Dose 2.5 MG; Start 04/06/19 at 05:00 Ipratropium [place] (Atrovent 0.02% (Neb)) 0.5 mg Q4H RESP THERAPY NEB Last administered on 04/08/19at 05:51; Admin Dose 0.5 MG; Start 04/06/19 at 05:00 Acetaminophen (Tylenol Liquid) 650 mg Q6H PRN PO PAIN LEVEL 1-3 OR FEVER; Start 04/06/19 at 01:30 Acetaminophen/ Hydrocodone Bitart ([place] (5/325)) 1 tab Q6H PRN PO PAIN LEVEL 4-6 Last administered on 04/08/19at 12:04; Admin Dose 1 TAB; Start 04/06/19 at 01:30 Docusate Sodium (Colace) 100 mg Q12H PRN PO CONSTIPATION; Start 04/06/19 at 01:30 Bisacodyl (Dulcolax) 5 mg DAILY PRN PO CONSTIPATION; Start 04/06/19 at 01:30 Enoxaparin Sodium (Lovenox) 40 mg DAILY SC Last administered on 04/08/19at 08:10; Admin Dose 40 MG; Start 04/06/19 at 09:00 Vancomycin HCl (Vanco Iv Per Pharmacy) VANCOMYCIN PER PHARMACY PER PROTOCOL XX ; Start 04/06/19 at 01:30 Lorazepam (Ativan) 1 mg Q4 PRN IV CONTROL WITHDRAWAL SYMPTOMS; Start 04/06/19 at 01:30 Tramadol HCl (Ultram) 50 mg Q4 PRN PO PAIN Last administered on 04/08/19at 15:39; Admin Dose 50 MG; Start 04/06/19 at 05:00 Hydroxyzine HCl (Atarax) 50 mg Q6H PRN PO ITCHING; Start 04/06/19 at 06:00 Miscellaneous Information 1 ea NOTE XX ; Start 04/06/19 at 08:00 Glucose (Glutose) 15 gm Q15M PRN PO DECREASED GLUCOSE; Start 04/06/19 at 08:00 Glucose (Glutose) 22.5 gm Q15M PRN PO DECREASED GLUCOSE; Start 04/06/19 at 08:00 Dextrose (D50w Syringe) 25 ml Q15M PRN IV DECREASED GLUCOSE; Start 04/06/19 at 08:00 Dextrose (D50w Syringe) 50 ml Q15M PRN IV DECREASED GLUCOSE; Start 04/06/19 at 08:00 Glucagon (Glucagen) 1 mg Q15M PRN IM DECREASED GLUCOSE; Start 04/06/19 at 08:00 Glucose (Glutose) 15 gm Q15M PRN BUCCAL DECREASED GLUCOSE; Start 04/06/19 at 08:00 Diagnostic Test (Pha) (Accu-Chek) 1 ea AC MEALS AND BEDTIME XX ; Start 04/06/19 at 21:00 Vancomycin HCl 250 ml @ 125 mls/hr Q8H IVPB Last administered on 04/08/19at 15:40; Admin Dose 125 MLS/HR; Start 04/07/19 at 23:00 Metformin HCl (Glucophage) 850 mg BID WITH MEALS PO Last administered on 04/08/19 17:17; Admin Dose 850 MG; Start 04/07/19 at 18:05 Nateglinide (Starlix) 120 mg AC MEALS PO Last administered on 04/08/19at 17:17; Admin Dose 120 MG; Start 04/07/19 at 17:35 Insulin Aspart (Novolog Insulin Pen) NOVOLOG *MILD* ALGORITHM WITH MEALS BEDTIME SC Last administered on 04/08/19at 17:18; Admin Dose 4 UNIT; Start 04/07/19 at 21:00 Insulin Glargine (Lantus) 20 units DAILY@2000 SC ; Start 04/08/19 at 20:00; Status UNDEIDRA ELISE MD Apr 08, 2019 18:22
[2019-04-08 20:00] VITALS: BP 103/65; PULSE 82; RESP 18
[2019-04-08] MEDS ORDERED: INSULIN GLARGINE [LANTus] (100 UNITS/ML) SYG SC SCH (20:00)
[2019-04-08] MEDS ORDERED: INSULIN ASPART [NOVOLOG] 3 ML PEN SC ONE (23:00)
[2019-04-08] MEDS ORDERED: ACCU-CHEK XX ONE (23:00)
[2019-04-09] MEDS: ALBUTEROL 0.083% (NEB) 2.5 MG/3 ML AMP NEB SCH ×6 (01:00→20:03)
[2019-04-09] MEDS: IPRATROPIUM (NEB) 0.5 MG/2.5 ML AMP NEB SCH ×6 (01:00→21:00)
[2019-04-09 02:00] VITALS: BP 105/69; PULSE 61; RESP 18
[2019-04-09] MEDS ORDERED: INSULIN ASPART [NOVOLOG] 3 ML PEN SC ONE ×2 (02:30→21:12)
[2019-04-09] MEDS ORDERED: ACCU-CHEK XX ONE ×2 (04:30→21:30)
[2019-04-09] MEDS: HYDROCODONE/APAP (5/325) TAB PO PRN ×2 (05:51→14:56)
[2019-04-09] MEDS: VANCOMYCIN 1 GM 250 ML IVPB SCH (05:51)
[2019-04-09] MEDS: ACCU-CHEK XX SCH ×4 (07:30→21:00)
[2019-04-09] MEDS: NATEGLINIDE 120 MG TAB PO SCH ×3 (08:13→17:39)
[2019-04-09] MEDS: metFORMIN 850 MG TAB PO SCH (08:13)
[2019-04-09] MEDS: traMADol 50 MG TAB PO PRN (08:15)
[2019-04-09] MEDS: INSULIN ASPART [NOVOLOG] 3 ML PEN SC SCH ×4 (08:17→21:01)
[2019-04-09] MEDS: ENOXAPARIN 40 MG/0.4 ML SYG SC SCH (08:18)
[2019-04-09 09:02] VITALS: BP 99/52; PULSE 76; RESP 20
[2019-04-09 14:00] VITALS: BP 119/86; PULSE 76; RESP 18
--- NOTE | 2019-04-09 14:43 | CONS ---
Assessment/Plan Assessment/Plan Problems: (1) Type 2 diabetes mellitus with hyperglycemia Status: Chronic Comment: Sugars are coming under better control. Trying to adjust his regimen for home simplicity. At this time from an endocrine standpoint stable for discharge with outpatient follow-up Qualifiers: Diabetes mellitus mcfp insulin use: unspecified terminal operations supervisor insulin use bladimir romero Qualified Codes: E11.65 - Type 2 diabetes mellitus with hyperglycemia Consultation Date/Type/Reason Admit Date/Time Apr 06, 2019 at 01:19 Initial Consult Date 04/06/19 Type of Consult Endocrine Reason for Consultation Diabetes mellitus type 2; right thigh distal staph aureus abscess Requesting Provider: SASHA KELLEY Date/Time of Note DATE: 04/09/19 TIME: 14:41 24 HR Interval Summary Free Text/Dictation Patient reports she is feeling better wants to know when he can go home Constitutional: no complaints Detailed Summary Cardiovascular: no complaints Gastrointestinal: no complaints Genitourinary: no complaints Exam/Review of Systems Exam Vitals Vital Signs Date Temp Pulse Resp B/P (MAP) Pulse Ox O2 O2 Flow FiO2 Time Delivery Rate 04/09/19 98.6 76 20 99/52 (68) 94 09:02 04/08/19 21 05:51 04/08/19 Room Air 01:53 04/07/19 8.0 19:34 Intake and Output 04/08/19 04/08/19 04/09/19 1515:00 23:00 07:00 IntakeIntake Total 600 ml 1600 ml 250 ml BalanceBalance 600 ml 1600 ml 250 ml Constitutional: alert, oriented Respiratory: clear to auscultation, normal air movement Cardiovascular: regular rate and rhythm, nl pulses Gastrointestinal: soft, nl liver, spleen, non-tender Results Result Diagram: 04/09/19 0604 04/09/19 0604 Results 24hrs Laboratory Tests Test 04/08/19 17:15 04/08/19 21:42 04/08/19 22:39 04/09/19 00:45 Bedside Glucose 298 H 307 H 324 H 267 H Test 04/09/19 02:05 04/09/19 04:29 04/09/19 06:04 04/09/19 08:10 Bedside Glucose 316 H 189 200 White Blood Count 6.5 # Red Blood Count 3.61 L Hemoglobin 11.2 L Hematocrit 32.0 L Mean Corpuscular 88.6 Volume Mean Corpuscular 31.0 Hemoglobin Mean Corpuscular 35.0 Hemoglobin Concent Red Cell 12.6 Distribution Width Platelet Count 306 Mean Platelet Volume 10.1 Immature 1.600 H Granulocytes % Neutrophils % 66.9 Lymphocytes % 23.1 Monocytes % 6.2 Eosinophils % 1.4 Basophils % 0.8 Nucleated Red Blood 0.0 Cells % Immature 0.100 H Granulocytes # Neutrophils # 4.3 Lymphocytes # 1.5 Monocytes # 0.4 Eosinophils # 0.1 Basophils # 0.1 Nucleated Red Blood 0.0 Cells # Blood Urea Nitrogen 11 Creatinine 0.47 L Test 04/09/19 12:08 Bedside Glucose 216 Medications Medication Current Medications Ondansetron HCl (Zofran Inj) 4 mg Q6H PRN IV NAUSEA AND/OR VOMITING; Start 04/06/19 at 01:30 Albuterol (Proventil 0.083% (Neb)) 2.5 mg Q4H RESP THERAPY NEB Last administered on 04/08/19at 05:51; Admin Dose 2.5 MG; Start 04/06/19 at 05:00 Ipratropium [place] (Atrovent 0.02% (Neb)) 0.5 mg Q4H RESP THERAPY NEB Last administered on 04/08/19at 05:51; Admin Dose 0.5 MG; Start 04/06/19 at 05:00 Acetaminophen (Tylenol Liquid) 650 mg Q6H PRN PO PAIN LEVEL 1-3 OR FEVER Last administered on 04/08/19at 21:51; Admin Dose 650 MG; Start 04/06/19 at 01:30 Acetaminophen/ Hydrocodone Bitart ([place] (5/325)) 1 tab Q6H PRN PO PAIN LEVEL 4-6 Last administered on 04/09/19at 05:51; Admin Dose 1 TAB; Start 04/06/19 at 01:30 Docusate Sodium (Colace) 100 mg Q12H PRN PO CONSTIPATION; Start 04/06/19 at 01:30 Bisacodyl (Dulcolax) 5 mg DAILY PRN PO CONSTIPATION; Start 04/06/19 at 01:30 Enoxaparin Sodium (Lovenox) 40 mg DAILY SC Last administered on 04/09/19at 08:18; Admin Dose 40 MG; Start 04/06/19 at 09:00 Lorazepam (Ativan) 1 mg Q4 PRN IV CONTROL WITHDRAWAL SYMPTOMS; Start 04/06/19 at 01:30 Tramadol HCl (Ultram) 50 mg Q4 PRN PO PAIN Last administered on 04/09/19at 08:15; Admin Dose 50 MG; Start 04/06/19 at 05:00 Hydroxyzine HCl (Atarax) 50 mg Q6H PRN PO ITCHING; Start 04/06/19 at 06:00 Miscellaneous Information 1 ea NOTE XX ; Start 04/06/19 at 08:00 Glucose (Glutose) 15 gm Q15M PRN PO DECREASED GLUCOSE; Start 04/06/19 at 08:00 Glucose (Glutose) 22.5 gm Q15M PRN PO DECREASED GLUCOSE; Start 04/06/19 at 08:00 Dextrose (D50w Syringe) 25 ml Q15M PRN IV DECREASED GLUCOSE; Start 04/06/19 at 08:00 Dextrose (D50w Syringe) 50 ml Q15M PRN IV DECREASED GLUCOSE; Start 04/06/19 at 08:00 Glucagon (Glucagen) 1 mg Q15M PRN IM DECREASED GLUCOSE; Start 04/06/19 at 08:00 Glucose (Glutose) 15 gm Q15M PRN BUCCAL DECREASED GLUCOSE; Start 04/06/19 at 08:00 Diagnostic Test (Pha) (Accu-Chek) 1 ea AC MEALS AND BEDTIME XX Last administered on 04/08/19at 21:54; Admin Dose 1 EA; Start 04/06/19 at 21:00 Nateglinide (Starlix) 120 mg AC MEALS PO Last administered on 04/09/19at 12:15; Admin Dose 120 MG; Start 04/07/19 at 17:35 Insulin Aspart (Novolog Insulin Pen) NOVOLOG *MILD* ALGORITHM WITH MEALS BEDTIME SC Last administered on 04/09/19at 12:13; Admin Dose 2 UNIT; Start 04/07/19 at 21:00 Insulin Glargine (Lantus) 24 units DAILY@2000 SC ; Start 04/09/19 at 20:00; Status UNV Metformin HCl (Glucophage) 1,000 mg BID WITH MEALS PO ; Start 04/09/19 at 18:05; Status UNV DEIDRA MORTENSEN MD Apr 09, 2019 14:43
--- NOTE | 2019-04-09 17:28 | PN ---
Date/Time of Note Date/Time of Note DATE: 04/09/19 TIME: 17:26 Assessment/Plan Lines/Catheters IV Catheter Type (from [facility]): Saline Lock Assessment/Plan Chief Complaint/Hosp Course Postop day #2 status post irrigation debridement superficial abscess of right distal thigh. Patient is doing well overall. The infection seems to be resolving and treated adequately. Intraoperative wound cultures are growing MSSA Continue twice daily packing changes Transition to oral antibiotics per ID's recommendation Okay to discharge from orthopedic standpoint. Patient will need to continue tw ice daily packing changes until the wound heals by secondary intention. Follow- up in 1 week. Subjective 24 Hr Interval Summary Patient doing well No acute events overnight Pain is well controlled Exam/Review of Systems Vital Signs Vitals Vital Signs Date Temp Pulse Resp B/P (MAP) Pulse Ox O2 O2 Flow FiO2 Time Delivery Rate 04/09/19 98.6 76 18 119/86 96 14:00 (97) 04/08/19 21 05:51 04/08/19 Room Air 01:53 04/07/19 8.0 19:34 Intake and Output 04/08/19 04/08/19 04/09/19 1515:00 23:00 07:00 IntakeIntake Total 600 ml 1600 ml 250 ml BalanceBalance 600 ml 1600 ml 250 ml Exam Free Text/Dictation Right lower extremity: D distal thigh incision with iodoform packing. There is no purulent drainage. There is minimal to no erythema around the previous abscess. There is no significant knee effusion. Patient is nontender palpation. Range of motion 0100 with no pain. Sensation intact to light touch in a sural, saphenous, deep peroneal, superficial peroneal, medial and lateral plantar nerve distribution. Motor is intact, patient able to dorsiflex and plantarflex ankle and extend and flex great toe. Dorsalis Pedis pulse +2, Brisk capillary refill. Compartments are soft. Calves non-tender to palpation bilaterally. Results Result Diagram: 04/09/19 0604 04/09/19 0604 MANPREET LIZARRAGA MD Apr 09, 2019 17:28
[2019-04-09] MEDS: metFORMIN 500 MG TAB PO SCH (17:39)
--- NOTE | 2019-04-09 17:39 | PN ---
Date/Time of Note Date/Time of Note DATE: 04/09/19 TIME: 17:39 Assessment/Plan VTE Prophylaxis Risk score (from Ns)>0 risk: 5 SCD applied (from Nsg): Yes Pharmacological prophylaxis: heparin Lines/Catheters IV Catheter Type (from Nrs): Saline Lock Assessment/Plan Hospital Course AOx3 RRR CTAB R leg wrapped A/P: 48 yo male wtih DKA and likely abscess of leg DKA: - Resolved DMII: - Basal/bolus insulin - metformin added Knee abscess -Status post OR with incision and drainage with Dr Stevenson -Continue wound care - Continue zosyn for MSSA and dc home likley on bactrim RAULITO: - Resolved with fluids Discharge plan: Home tomorrow Result Diagram: 04/09/19 0604 04/09/19 0604 Results 24hrs Laboratory Tests Test 04/08/19 21:42 04/08/19 22:39 04/09/19 00:45 04/09/19 02:05 Bedside Glucose 307 H 324 H 267 H 316 H Test 04/09/19 04:29 04/09/19 06:04 04/09/19 08:10 04/09/19 12:08 Bedside Glucose 189 200 216 White Blood Count 6.5 # Red Blood Count 3.61 L Hemoglobin 11.2 L Hematocrit 32.0 L Mean Corpuscular 88.6 Volume Mean Corpuscular 31.0 Hemoglobin Mean Corpuscular 35.0 Hemoglobin Concent Red Cell 12.6 Distribution Width Platelet Count 306 Mean Platelet Volume 10.1 Immature 1.600 H Granulocytes % Neutrophils % 66.9 Lymphocytes % 23.1 Monocytes % 6.2 Eosinophils % 1.4 Basophils % 0.8 Nucleated Red Blood 0.0 Cells % Immature 0.100 H Granulocytes # Neutrophils # 4.3 Lymphocytes # 1.5 Monocytes # 0.4 Eosinophils # 0.1 Basophils # 0.1 Nucleated Red Blood 0.0 Cells # Blood Urea Nitrogen 11 Creatinine 0.47 L Subjective 24 Hr Interval Summary Free Text/Dictation Sugars remain elevated Patient not able to get home health arranged given insurance status Exam/Review of Systems Exam Vitals Vital Signs Date Temp Pulse Resp B/P (MAP) Pulse Ox O2 O2 Flow FiO2 Time Delivery Rate 04/09/19 98.6 76 18 119/86 96 14:00 (97) 04/08/19 21 05:51 04/08/19 Room Air 01:53 04/07/19 8.0 19:34 Intake and Output 04/08/19 04/08/19 04/09/19 1515:00 23:00 07:00 IntakeIntake Total 600 ml 1600 ml 250 ml BalanceBalance 600 ml 1600 ml 250 ml Results Results 24hrs Laboratory Tests Test 04/08/19 21:42 04/08/19 22:39 04/09/19 00:45 04/09/19 02:05 Bedside Glucose 307 H 324 H 267 H 316 H Test 04/09/19 04:29 04/09/19 06:04 04/09/19 08:10 04/09/19 12:08 Bedside Glucose 189 200 216 White Blood Count 6.5 # Red Blood Count 3.61 L Hemoglobin 11.2 L Hematocrit 32.0 L Mean Corpuscular 88.6 Volume Mean Corpuscular 31.0 Hemoglobin Mean Corpuscular 35.0 Hemoglobin Concent Red Cell 12.6 Distribution Width Platelet Count 306 Mean Platelet Volume 10.1 Immature 1.600 H Granulocytes % Neutrophils % 66.9 Lymphocytes % 23.1 Monocytes % 6.2 Eosinophils % 1.4 Basophils % 0.8 Nucleated Red Blood 0.0 Cells % Immature 0.100 H Granulocytes # Neutrophils # 4.3 Lymphocytes # 1.5 Monocytes # 0.4 Eosinophils # 0.1 Basophils # 0.1 Nucleated Red Blood 0.0 Cells # Blood Urea Nitrogen 11 Creatinine 0.47 L Medications Medication Current Medications Ondansetron HCl (Zofran Inj) 4 mg Q6H PRN IV NAUSEA AND/OR VOMITING; Start 04/06 at 01:30 Albuterol (Proventil 0.083% (Neb)) 2.5 mg Q4H RESP THERAPY NEB Last administered on 04/08/19at 05:51; Admin Dose 2.5 MG; Start 04/06/19 at 05:00 Ipratropium [place] (Atrovent 0.02% (Neb)) 0.5 mg Q4H RESP THERAPY NEB Last administered on 04/08/19at 05:51; Admin Dose 0.5 MG; Start 04/06/19 at 05:00 Acetaminophen (Tylenol Liquid) 650 mg Q6H PRN PO PAIN LEVEL 1-3 OR FEVER Last administered on 04/08/19at 21:51; Admin Dose 650 MG; Start 04/06/19 at 01:30 Acetaminophen/ Hydrocodone Bitart ([place] (5/325)) 1 tab Q6H PRN PO PAIN LEVEL 4-6 Last administered on 04/09/19at 14:56; Admin Dose 1 TAB; Start 04/06/19 at 01:30 Docusate Sodium (Colace) 100 mg Q12H PRN PO CONSTIPATION; Start 04/06/19 at 01:30 Bisacodyl (Dulcolax) 5 mg DAILY PRN PO CONSTIPATION; Start 04/06/19 at 01:30 Enoxaparin Sodium (Lovenox) 40 mg DAILY SC Last administered on 04/09/19at 08:18; Admin Dose 40 MG; Start 04/06/19 at 09:00 Lorazepam (Ativan) 1 mg Q4 PRN IV CONTROL WITHDRAWAL SYMPTOMS; Start 04/06/19 at 01:30 Tramadol HCl (Ultram) 50 mg Q4 PRN PO PAIN Last administered on 04/09/19at 08:15; Admin Dose 50 MG; Start 04/06/19 at 05:00 Hydroxyzine HCl (Atarax) 50 mg Q6H PRN PO ITCHING; Start 04/06/19 at 06:00 Miscellaneous Information 1 ea NOTE XX ; Start 04/06/19 at 08:00 Glucose (Glutose) 15 gm Q15M PRN PO DECREASED GLUCOSE; Start 04/06/19 at 08:00 Glucose (Glutose) 22.5 gm Q15M PRN PO DECREASED GLUCOSE; Start 04/06/19 at 08:00 Dextrose (D50w Syringe) 25 ml Q15M PRN IV DECREASED GLUCOSE; Start 04/06/19 at 08:00 Dextrose (D50w Syringe) 50 ml Q15M PRN IV DECREASED GLUCOSE; Start 04/06/19 at 08:00 Glucagon (Glucagen) 1 mg Q15M PRN IM DECREASED GLUCOSE; Start 04/06/19 at 08:00 Glucose (Glutose) 15 gm Q15M PRN BUCCAL DECREASED GLUCOSE; Start 04/06/19 at 08:00 Diagnostic Test (Pha) (Accu-Chek) 1 ea AC MEALS AND BEDTIME XX Last administered on 04/08/19at 21:54; Admin Dose 1 EA; Start 04/06/19 at 21:00 Nateglinide (Starlix) 120 mg AC MEALS PO Last administered on 04/09/19at 12:15; Admin Dose 120 MG; Start 04/07/19 at 17:35 Insulin Aspart (Novolog Insulin Pen) NOVOLOG *MILD* ALGORITHM WITH MEALS BEDTIME SC Last administered on 04/09/19at 12:13; Admin Dose 2 UNIT; Start 04/07/19 at 21:00 Insulin Glargine (Lantus) 24 units DAILY@2000 SC ; Start 04/09/19 at 20:00 Metformin HCl (Glucophage) 1,000 mg BID WITH MEALS PO ; Start 04/09/19 at 18:05 JORGE CUEVAS MD Apr 09, 2019 17:39
[2019-04-09] MEDS ORDERED: INSULIN GLARGINE [LANTus] (100 UNITS/ML) SYG SC SCH (20:00)
[2019-04-09 20:29] VITALS: BP 94/59; PULSE 68; RESP 20
[2019-04-10] MEDS: ALBUTEROL 0.083% (NEB) 2.5 MG/3 ML AMP NEB SCH ×5 (00:32→16:35)
[2019-04-10] MEDS: IPRATROPIUM (NEB) 0.5 MG/2.5 ML AMP NEB SCH ×5 (00:32→16:35)
[2019-04-10 02:10] VITALS: BP 109/70; PULSE 68; RESP 18
[2019-04-10] MEDS: traMADol 50 MG TAB PO PRN (05:03)
[2019-04-10] MEDS: HYDROCODONE/APAP (5/325) TAB PO PRN ×2 (05:03→14:42)
[2019-04-10] MEDS: ACCU-CHEK XX SCH ×3 (07:30→17:31)
[2019-04-10] MEDS: INSULIN ASPART [NOVOLOG] 3 ML PEN SC SCH ×3 (07:57→17:28)
[2019-04-10] MEDS: NATEGLINIDE 120 MG TAB PO SCH ×3 (07:58→17:28)
[2019-04-10] MEDS: metFORMIN 500 MG TAB PO SCH ×2 (07:58→17:29)
[2019-04-10] MEDS: ENOXAPARIN 40 MG/0.4 ML SYG SC SCH (07:59)
[2019-04-10 08:05] VITALS: BP 103/67; PULSE 57; RESP 16
[2019-04-10] MEDS ORDERED: LINAGLIPTIN 5 MG TABLET PO SCH (14:00)
[2019-04-10 14:38] VITALS: BP 111/73; PULSE 67; RESP 18
--- NOTE | 2019-04-10 14:44 | CONS ---
Assessment/Plan Assessment/Plan Problems: (1) Type 2 diabetes mellitus with hyperglycemia Status: Chronic Comment: Glucose control still suboptimal. Will add DPP 4 Qualifiers: Diabetes mellitus termite renewal inspector insulin use: unspecified termite renewal inspector insulin use status Qualified Codes: E11.65 - Type 2 diabetes mellitus with hyperglycemia Consultation Date/Type/Reason Admit Date/Time Apr 06, 2019 at 01:19 Initial Consult Date 04/06/19 Type of Consult Endocrine Reason for Consultation DM management Requesting Provider: SASHA KELLEY Date/Time of Note DATE: 04/10/19 TIME: 14:40 24 HR Interval Summary Free Text/Dictation No new complaints. No hypoglycemic events. Exam/Review of Systems Exam Vitals Vital Signs Date Temp Pulse Resp B/P (MAP) Pulse Ox O2 O2 Flow FiO2 Time Delivery Rate 04/10/19 97.6 67 18 111/73 97 14:38 (86) 04/08/19 21 05:51 04/08/19 Room Air 01:53 04/07/19 8.0 19:34 Intake and Output 04/09/19 04/09/19 04/10/19 1414:59 22:59 06:59 IntakeIntake Total 600 ml 350 ml 250 ml BalanceBalance 600 ml 350 ml 250 ml Additional Comments POC glucose reviewed Results Result Diagram: 04/09/19 0604 04/09/19 0604 Results 24hrs Laboratory Tests Test 04/09/19 20:54 04/09/19 21:42 04/10/19 01:57 04/10/19 07:56 Bedside Glucose 317 H 315 H 218 194 Test 04/10/19 11:38 Bedside Glucose 221 H Medications Medication Current Medications Ondansetron HCl (Zofran Inj) 4 mg Q6H PRN IV NAUSEA AND/OR VOMITING; Start 04/06/19 at 01:30 Albuterol (Proventil 0.083% (Neb)) 2.5 mg Q4H RESP THERAPY NEB Last administered on 04/08/19at 05:51; Admin Dose 2.5 MG; Start 04/06/19 at 05:00 Ipratropium [place] (Atrovent 0.02% (Neb)) 0.5 mg Q4H RESP THERAPY NEB Last administered on 04/08/19at 05:51; Admin Dose 0.5 MG; Start 04/06/19 at 05:00 Acetaminophen (Tylenol Liquid) 650 mg Q6H PRN PO PAIN LEVEL 1-3 OR FEVER Last administered on 04/08/19at 21:51; Admin Dose 650 MG; Start 04/06/19 at 01:30 Acetaminophen/ Hydrocodone Bitart ([place] (5/325)) 1 tab Q6H PRN PO PAIN LEVEL 4-6 Last administered on 04/10/19at 05:03; Admin Dose 1 TAB; Start 04/06/19 at 01:30 Docusate Sodium (Colace) 100 mg Q12H PRN PO CONSTIPATION; Start 04/06/19 at 01:30 Bisacodyl (Dulcolax) 5 mg DAILY PRN PO CONSTIPATION; Start 04/06/19 at 01:30 Enoxaparin Sodium (Lovenox) 40 mg DAILY SC Last administered on 04/10/19at 07:59; Admin Dose 40 MG; Start 04/06/19 at 09:00 Lorazepam (Ativan) 1 mg Q4 PRN IV CONTROL WITHDRAWAL SYMPTOMS; Start 04/06/19 at 01:30 Tramadol HCl (Ultram) 50 mg Q4 PRN PO PAIN Last administered on 04/10/19at 05:03; Admin Dose 50 MG; Start 04/06/19 at 05:00 Hydroxyzine HCl (Atarax) 50 mg Q6H PRN PO ITCHING; Start 04/06/19 at 06:00 Miscellaneous Information 1 ea NOTE XX ; Start 04/06/19 at 08:00 Glucose (Glutose) 15 gm Q15M PRN PO DECREASED GLUCOSE; Start 04/06/19 at 08:00 Glucose (Glutose) 22.5 gm Q15M PRN PO DECREASED GLUCOSE; Start 04/06/19 at 08:00 Dextrose (D50w Syringe) 25 ml Q15M PRN IV DECREASED GLUCOSE; Start 04/06/19 at 08:00 Dextrose (D50w Syringe) 50 ml Q15M PRN IV DECREASED GLUCOSE; Start 04/06/19 at 08:00 Glucagon (Glucagen) 1 mg Q15M PRN IM DECREASED GLUCOSE; Start 04/06/19 at 08:00 Glucose (Glutose) 15 gm Q15M PRN BUCCAL DECREASED GLUCOSE; Start 04/06/19 at 08:00 Diagnostic Test (Pha) (Accu-Chek) 1 ea AC MEALS AND BEDTIME XX Last administered on 04/08/19 21:54; Admin Dose 1 EA; Start 04/06/19 at 21:00 Nateglinide (Starlix) 120 mg AC MEALS PO Last administered on 04/10/19 11:37; Admin Dose 120 MG; Start 04/07/19 at 17:35 Insulin Glargine (Lantus) 24 units DAILY@2000 SC Last administered on 04/09/19 21:45; Admin Dose 24 UNITS; Start 04/09/19 at 20:00 Metformin HCl (Glucophage) 1,000 mg BID WITH MEALS PO Last administered on 04/10/19 07:58; Admin Dose 1,000 MG; Start 04/09/19 at 18:05 Insulin Aspart (Novolog Insulin Pen) NOVOLOG *MODERATE* ALGORITHM WITH MEALS BEDTIME SC Last administered on 04/10/19 11:42; Admin Dose 6 UNIT; Start 04/10/19 at 08:00 Linagliptin (Tradjenta) 5 mg DAILY PO ; Start 04/10/19 at 14:00 VERONICA BOYER MD Apr 10, 2019 14:44
[2019-04-10] MEDS ORDERED: ACCU-CHEK XX ONE (15:30)
[2019-04-10] MEDS ORDERED: INSULIN ASPART [NOVOLOG] 3 ML PEN SC ONE (15:30)
[2019-04-10] MEDS ORDERED: SYRG1DIS22 MC (15:35)
[2019-04-10] MEDS ORDERED: SULF1TAB31 PO (15:35)
[2019-04-10] MEDS ORDERED: NOVO3I SC (15:35)
[2019-04-10] MEDS ORDERED: SITA100T11 PO (15:35)
[2019-04-10] MEDS ORDERED: METF-849 PO (15:35)
[2019-04-10] MEDS ORDERED: LANT3I SC (15:36)
--- NOTE | 2019-04-10 15:37 | PDOCDIS ---
Discharge Instructions DIAGNOSIS Discharge Diagnosis Diabetes Abscess Sepsis CONDITION [id number] Patient Condition: [id number] Stable FOLLOW UP/APPOINTMENTS Follow-up Plan Take your insulin everday as prescribed. This is extremely improtant for the rest of your life Make an appointment to see a doctor within the next 1-2 weeks Change your wound dressing everyday Return to the hospital if you have any concerning symptoms JORGE CUEVAS MD Apr 10, 2019 15:37
--- NOTE | 2019-04-10 16:01 | DS ---
Date/Time of Note Date/Time of Note DATE: 04/10/19 TIME: 15:58 Discharge Summary Admission/Discharge Info Admit Date/Time Apr 06, 2019 at 01:19 Discharge Date/Time Discharge Diagnosis Diabetes Abscess Sepsis Patient Condition: Stable Hospital Course The patient presented with evidence of DKA. He was started on IV insulin drip and DKA promptly resolved. He was then transition to basal bolus insulin. He had continued hyperglycemia which required up titration of his insulin regimen as well as addition of oral anti-glycemic's. He was also found to have a abscess of his leg which required surgical drainage. He was treated with IV vancomycin and Zosyn. His cultures grew MSSA sensitive to Bactrim and this was prescribed at discharge. We tried to arrange him for home wound care however this was impossible given his insurance status. The patient stressed that he was capable of taking care of the wound himself and did not require further hospitalization. He was extensively counseled on the need for insulin adherence and regular follow-up with his doctor Home Meds Active Scripts Acetaminophen* (Tylenol*) 325 Mg Tablet, 2 TAB PO Q6 PRN for PAIN AND OR ELEVATED TEMP, #20 TAB Prov:LIAM ROWE MD 01/23/19 Acetaminophen* (Tylophen*) 500 Mg Capsule, 1 CAP PO Q6H PRN for PAIN AND OR ELEVATED TEMP, #20 CAP Prov:DHRUV DIAZ PA-C 01/20/19 Sulfamethoxazole/Trimethoprim* (Bactrim Ds* Tablet) 1 Each Tablet, 1 TAB PO BID, #14 TAB Prov:DHRUV DIAZ PA-C 01/20/19 Cephalexin* (Keflex*) 500 Mg Capsule, 500 MG PO TID for 7 Days, CAP Prov:DHRUV DAIZ PA-C 01/20/19 Sitagliptin* (Januvia*) 100 Mg Tablet, 100 MG PO DAILY, #30 TAB 3 Refills Prov:RENATO BURNS 09/15/18 Insulin Aspart* (Novolog Insulin Pen*) 100 Unit/Ml Soln, 6 UNIT SC WITH MEALS for 30 Days, #1 BOX 3 Refills alternative: humalog at same dose, directions, and refills Prov:RENATO BURNS 09/15/18 [Insulin Glargine] 100 UNITS/ML SOLN No Conflict Check, 16 UNITS SC DAILY@08 for 30 Days, #1 BOX 3 Refills alternative:wolfgang singletary tresiba. Same dose and direction with same refills Prov:RENATO BURNS 09/15/18 Loratadine* (Claritin*) 10 Mg Capsule, 10 MG PO DAILY, #15 CAP Prov:MARQUIS DUNN PA-C 07/14/18 Albuterol Sulfate* (Ventolin HFA*) 18 Gm Hfa.aer.ad, 2 PUFF INHALATION Q4H, #1 INHALER Prov:MARQUIS DUNN PA-C 07/14/18 Wool Alcoh/Min Oil/Radha/[place] (Eucerin Creme) 454 Gm Cream.gm., 454 GM TP BID, #1 TUB Prov:MARQUIS DUNN PA-C 07/14/18 Hydrocortisone* Topical (Hydrocortisone* Topical) 2.5%-28.3 Gm Cream..g., 1 APPLIC TOP BID, #1 TUB Prov:MARQUIS DUNN PA-C 07/14/18 Hydroxyzine Hcl* (Hydroxyzine Hcl*) 50 Mg Tablet, 50 MG PO Q6H PRN for ITCHING, #30 TAB Prov:SHAILA DALE 07/04/18 Reported Medications Famotidine* (Famotidine*) 20 Mg Tablet, 20 MG PO DAILY, #30 TAB 01/28/18 Tramadol Hcl* (Ultram*) 50 Mg Tablet, 50 MG PO Q4 PRN for PAIN, TAB 01/28/18 Follow-up Plan Take your insulin everday as prescribed. This is extremely improtant for the rest of your life Make an appointment to see a doctor within the next 1-2 weeks Change your wound dressing everyday Return to the hospital if you have any concerning symptoms Primary Care Provider Care Physician No Primary Pending Labs Laboratory Tests Test 04/09/19 20:54 04/09/19 21:42 04/10/19 01:57 04/10/19 07:56 Bedside 317 315 218 194 Glucose mg/dL (70-220) mg/dL (70-220) mg/dL (70-220) mg/dL (70-220) Test 04/10/19 11:38 04/10/19 14:39 04/10/19 15:41 Bedside 221 336 278 Glucose mg/dL (70-220) mg/dL (70-220) mg/dL (70-220) JORGE CUEVAS MD Apr 10, 2019 16:01
== END 2019-04-10 18:37 | disposition home or self-care (01) | DRG 853 ==
LOC: E/R 21:51 → ICU 04-06 01:19 → PP2 04-06 13:21
PROVIDERS: ADMIT Family Medicine; ATTEND Internal Medicine
PROC: 0JBN0ZZ Excision of Right Lower Leg Subcutaneous Tissue and Fascia, Open Approach (ICD-10-PCS; principal; 2019-04-07 15:30)
DX: A41.9 Sepsis, unspecified organism (principal); E11.10 Type 2 diabetes mellitus with ketoacidosis without coma; N17.9 Acute kidney failure, unspecified; E87.1 Hypo-osmolality and hyponatremia; L03.115 Cellulitis of right lower limb; L02.415 Cutaneous abscess of right lower limb; B95.61 Methicillin susceptible Staphylococcus aureus infection as the cause of diseases classified elsewhere; Z91.19 Patient's noncompliance with other medical treatment and regimen; Z79.4 Long term (current) use of insulin
CPT/HCPCS: 36415; 73562; 73700; 80048; 80053; 80202; 80307; 81003; 82565; 82803; 82962; 83036; 83690; 83735; 84100; 84443; 84520; 84560; 85025; 86706; 86708; 86803; 87070; 87075; 87081; 87102; 87340; 93970; 94640; 94664; 96374; J0690; J1100; J1650; J1815; J2250; J2405; J2543; J2765; J2795; J3010; J3370; J3480; J7040; J7042; J7050; J7120

== ENCOUNTER 2019-04-29 10:33 | Emergency (ER) | payer MEDICAID ==
[~2019-04-29] VITALS: Ht 160 cm; Wt 78.0 kg
[~2019-04-29 10:33] MED LIST changes: -ACET325T33 PO; -ACET500C5 PO; -ALBU18HF INHALATION; +BEN25 PO; -CEPH-443 PO; -FAMO20TA18 PO; -HC30CR25 TOP; -HYDR50TA15 PO; -Insulin Glargine SC; -LANO454C2 TP; +LANT3I SC; -LORA10CA PO; +METF-849 PO; +SYRG1DIS22 MC; -TRAM50TA PO
[2019-04-29 10:35] VITALS: BP 109/54; PULSE 78; RESP 18; Ht 160 cm; Wt 78.0 kg
--- NOTE | 2019-04-29 10:59 | ERD ---
ER Documentation Chief Complaint Chief Complaint RIGHT KNEE WOIUND CHECK HPI Patient is a 48-year-old male reporting to ED for wound check. He states he had been "cut open" for an abscess about 3 weeks ago. He denies any fevers, chills, erythema around the lesion. He states that he has been changing the dressing appropriately. He denies any complications. He also reports slight red bumps up and down his leg that are very itchy. He denies any pain. He states that the bump is been there for 1 or 2 weeks. The bumps not spreading but just itch. ROS All systems reviewed and are negative except as per history of present illness. Medications Home Meds Active Scripts Diphenhydramine Hcl* (Benadryl*) 25 Mg Cap, 25 MG PO Q6 PRN for ITCHING/RASH, #30 TAB Prov:MARIBELL SANTAMAIRA PA-C 04/29/19 Insulin Glargine* (Lantus*) 100 Unit/Ml Soln, 30 UNIT SC QHS, #1 VIAL 5 Refills Prov:JORGE CUEVAS MD 04/10/19 Syrge-Ndl,Ins 0.3 ml Half Elfego (Insulin Syringe) 1 Each Disp.syrin, BOX MC, #1 9 Refills Prov:JORGE CUEVAS MD 04/10/19 Metformin* (Glucophage*) 500 Mg Tab, 1000 MG PO BID WITH MEALS for 5 Days, #90 TAB Prov:JORGE CUEVAS MD 04/10/19 Sulfamethoxazole/Trimethoprim* (Bactrim Ds* Tablet) 1 Each Tablet, 1 TAB PO BID for 5 Days, #10 TAB Prov:JORGE CUEVAS MD 04/10/19 Sitagliptin* (Januvia*) 100 Mg Tablet, 100 MG PO DAILY, #30 TAB 3 Refills Prov:JORGE CUEVAS MD 04/10/19 Insulin Aspart* (Novolog Insulin Pen*) 100 Unit/Ml Soln, 10 UNIT SC WITH MEALS for 30 Days, #1 BOX 3 Refills alternative: humalog at same dose, directions, and refills Prov:JORGE CUEVAS MD 04/10/19 Allergies Allergies: Coded Allergies: No Known Allergy (Unverified , 01/24/19) PMhx/Soc History of Surgery: Yes (RIGHT KNEW ABCESS REMOVAL ) Anesthesia Reaction: No Hx Neurological Disorder: No Hx Respiratory Disorders: No Hx Cardiac Disorders: No Hx Psychiatric Problems: No Hx Miscellaneous Medical Probl: No Hx Alcohol Use: Yes Hx Substance Use: No Hx Tobacco Use: No Smoking Status: Never smoker FmHx Family History: No diabetes Physical Exam Vitals Vital Signs Date Temp Pulse Resp B/P (MAP) Pulse Ox O2 O2 Flow FiO2 Time Delivery Rate 04/29/19 98.7 78 18 109/54 99 10:35 (72) Physical Exam GENERAL: The patient is well-appearing, well-nourished, in no acute distress HEENT: Atraumatic. Conjunctivae are pink. Pupils equal, round, and reactive to light. There is no scleral icterus. Tympanic membranes clear bilaterally. Oropharynx clear. CHEST: Clear to auscultation bilaterally. There are no rales, wheezes or rhonchi. HEART: Regular rate and rhythm. No murmurs, clicks, rubs or gallops. SKIN: I&D site noted to the right upper thigh with packing in place. No induration or fluctuance. No lymphatic streaking. Compartments soft. Red small bumps on right thigh. Results 24 hrs Current Medications Medications Dose Sig/Nena Start Time Status Last (Trade) Ordered Route PRN Stop Time Admin Dose Reason Admin Bacitracin 1 applic ONCE ONCE 04/29/19 DC (Bacitracin TOP 11:00 04/29/19 0.5%/ Zinc 11:01 Oint) Procedures/MDM ED COURSE: The patient was stable throughout ED course. I kept the patient informed of laboratory and diagnostic imaging results throughout the ED course. PROCEDURES: wound dressing MEDICATIONS GIVEN: Bactracin Patient tolerated medication well with no adverse reactions. Patient reported improvement in pain. MEDICAL DECISION MAKING: Patient is a 48-year-old male presenting for wound check on his top of his right knee. Patient had I&D that was changed x 3 weeks ago. I have low suspicion for worsening abscess. I have low suspicion for deep tracking infection. Patient is discharged with strict ER precautions and told to follow-up with primary care within 1 to 2 days for close evaluation. Patient is told symptoms change or worsen to return immediately to the ER. All questions answered at discharge Vital signs were reviewed. Patient is afebrile. Patient was not hypoxic. Patient was hemodynamically stable. Patient was told to follow up with primary care for further care and management. PRESCRIPTION: Benadryl DISCHARGE: At this time, patient is stable for discharge and outpatient management. I have instructed the patient to follow-up with their primary care physician in 1-2 days. I have discussed with the patient the possibility of needing to see a specialist for further workup and imaging studies if symptoms persist. I have instructed the patient to promptly return to the ER for any new or worsening symptoms including increased pain, fever, nausea, vomiting, weakness or LOC. The patient expressed understanding of and agreement with this plan. All questions were answered. Home care instructions were provided. Disclaimer: Inadvertent spelling and grammatical errors are likely due to EHR/dictation software use and do not reflect on the overall quality of patient care. Also, please note that the electronic time recorded on this note does not necessarily reflect the actual time of the patient encounter. Departure Diagnosis: Primary Impression: Encounter for wound re-check Condition: Fair Patient Instructions: Wound Care Referrals: [facility] YOU HAVE RECEIVED A MEDICAL SCREENING EXAM AND THE RESULTS INDICATE THAT YOU DO NOT HAVE A CONDITION THAT REQUIRES URGENT TREATMENT IN THE EMERGENCY DEPARTMENT. FURTHER EVALUATION AND TREATMENT OF YOUR CONDITION CAN WAIT UNTIL YOU ARE SEEN IN YOUR DOCTORS OFFICE WITHIN THE NEXT 1-2 DAYS. IT IS YOUR RESPONSIBILITY TO MAKE AN APPOINTMENT FOR FOLOW-UP CARE. IF YOU HAVE A PRIMARY DOCTOR --you should call your primary doctor and schedule an appointment IF YOU DO NOT HAVE A PRIMARY DOCTOR YOU CAN CALL OUR PHYSICIAN REFERRAL HOTLINE AT IF YOU CAN NOT AFFORD TO SEE A PHYSICIAN YOU CAN CHOSE FROM THE FOLLOWING [place] [facility] [address] [facility] [address] [place] [address] [facility] [address] [facility] [address] [facility] [facility]. [address] [facility] [address] [facility] YOU HAVE RECEIVED A MEDICAL SCREENING EXAM AND THE RESULTS INDICATE THAT YOU DO NOT HAVE A CONDITION THAT REQUIRES URGENT TREATMENT IN THE EMERGENCY DEPARTMENT. FURTHER EVALUATION AND TREATMENT OF YOUR CONDITION CAN WAIT UNTIL YOU ARE SEEN IN YOUR DOCTORS OFFICE WITHIN THE NEXT 1-2 DAYS. IT IS YOUR RESPONSIBILITY TO MAKE AN APPOINTMENT FOR FOLOW-UP CARE. IF YOU HAVE A PRIMARY DOCTOR --you should call your primary doctor and schedule and appointment IF YOU DO NOT HAVE A PRIMARY DOCTOR YOU CAN CALL OUR PHYSICIAN REFERRAL HOTLINE AT . IF YOU CAN NOT AFFORD TO SEE A PHYSICIAN YOU CAN CHOSE FROM THE FOLLOWING [facility] INSTITUTIONS: [facility] [address] [place] [address] [facility] [address] [place] [address] [facility] [address] [place] [address] Additional Instructions: Call your primary care doctor TOMORROW for an appointment during the next 1-2 days.See the doctor sooner or return here if your condition worsens before your appointment time. MARIBELL SANTAMARIA PA-C Apr 29, 2019 10:59
[2019-04-29] MEDS ORDERED: BACITRACIN 0.5%/ZINC 28.35 GM OINT TOP ONE (11:00)
== END 2019-04-29 11:29 | disposition home or self-care (01) ==
LOC: FTE 10:33
DX: Z48.01 Encounter for change or removal of surgical wound dressing (principal); E11.9 Type 2 diabetes mellitus without complications; Z79.4 Long term (current) use of insulin
CPT/HCPCS: 99281